=== PATIENT | male | born 1995 | race Caucasian/White ===

== ENCOUNTER 2018-08-02 23:40 | Emergency (ER) | payer MEDICAID, SELFPAY ==
[2018-08-02 23:41] VITALS: BP 141/84; PULSE 122; RESP 18; TEMP 36.4; O2SAT 95; BMI 30.4
--- NOTE | 2018-08-03 00:18 | ED.VISSUMM ---
- ER Visit Summary Date of Service: 08/03/18 Chief Complaint: Toothache History of Present Illness: The patient is a 23 M who presents with dental pain for a month. He states that a filling fell out today and he has had some increased pain since that time. No fever jaw or facial swelling hot or cold sensitivity. He has not tried anything for pain at home. Physical Examination: Afebrile heart rate 122 vitals otherwise normal No distress resting comfortably Oropharynx clear no trismus clear speech he does have dental decay and dental tenderness of the right maxillary second molar no obvious abscess amenable to incision and drainage Test Results: Not indicated Emergency Department Course and Treatment: Patient given clindamycin and ibuprofen here for pain. He was given a prescription for clindamycin and advised to use anti-inflammatories for pain and to follow-up with his dentist. He understands return for new or worsening symptoms. He was discharged. Treatment Plan: [] Disposition: Discharge Impression: Odontalgia This note was generated with [employer] dictation software. It may contain incorrect words, spelling, and punctuation that were not noted in review of the chart prior to signing ED Disposition - Plan for ED Patient: Chief Complaint: Dental Referrals: Jose Francisco Domingo DO [Primary Care Provider] -
--- NOTE | 2018-08-03 00:19 | ED.DEP ---
ED Disposition - Plan for ED Patient: Chief Complaint: Dental Instructions: ED Tooth Pain Prescriptions: Clindamycin HCl [Cleocin] 300 mg PO Q8H #30 cap Referrals: Jose Francisco Domingo DO [Primary Care Provider] -
[2018-08-03] MEDS: Ibuprofen 200 MG Tablet 400 MG PO (00:28)
[2018-08-03] MEDS: Clindamycin HCl 150 MG Capsule 300 MG PO (00:28)
--- OUTSIDE RECORDS SUMMARY | 2018-09-14 17:49 | XMS RPT_ITS ---
:1995 Author Organization OHIP Care Team Providers Name Role Phone JOSE FRANCISCO CMKAY Attending Unavailable YONATAN CRONIN Referring Unavailable YONATAN CRONIN Attending Unavailable JOSE FRANCISCO MCKAY Referring Unavailable YONATAN CRONIN Referring Unavailable PHAM OHARA (PT) Attending Unavailable JOLANTA, YONATAN Referring Unavailable PHAM OHARA (PT) Attending Unavailable YONATAN CRONIN Referring Unavailable PHAM OHARA (PT) Attending Unavailable JOLANTA, YONATAN Referring Unavailable PHAM OHARA (PT) Attending Unavailable JOLANTA, YONATAN Referring Unavailable JOSE FRANCISCO MCKAY Attending Unavailable JOSE FRANCISCO MCKAY Referring Unavailable FIORELLA CHINCHILLA (DEDICATED DRIVER) Attending Unavailable JOSE FRANCISCO MCKAY Referring Unavailable LUCRETIA PERES (PA-C) Referring Unavailable Jose Francisco Mckay Primary Care Unavailable Tony Mitchell Attending Unavailable PROBLEMS PROBLEMS DATE TYPE CONDITION / CODE ATTENDING STATUS SOURCE 02/22/2018 Active Shortness of NA Active [facility] breath / Main [place] R06.02(ICD-10) Repository 02/22/2018 Active Cough / NA Active [facility] R05(ICD-10) Main [place] Repository 12/16/2017 Active Epigastric pain / NA Active [facility] R10.13(ICD-10) Main [place] Repository 12/16/2017 Active Nausea / NA Active [facility] R11.0(ICD-10) Main [place] Repository 12/16/2017 Active Impaired fasting NA Active [facility] glucose / [place] R73.01(ICD-10) Repository 10/28/2017 Active Strain of NA Active [facility] unspecified Main [place] muscle, fascia and Repository tendon at shoulder and upper arm level, left arm, subsequent encounter / S46.912D(ICD-10) 10/14/2017 Active Pain in left NA Active [facility] shoulder / [facility] [place] M25.512(ICD-10) Repository 10/14/2017 Active Pain in left knee NA Active [facility] / M25.562(ICD-10) Main [place] Repository 10/14/2017 Active Unspecified injury NA Active [facility] of left lower leg, Main [place] initial encounter Repository / S89.92XA(ICD-10) PROCEDURES PROCEDURES No Procedure Records FoundRESULTS RESULTS DISCHARGE INSTRUCTION Observed: 08/03/2018 Status: F Source: [place] 12:20 AM [facility] REPOSITORY [facility] Medical Records Department [address] [place] [address] Discharge Instruction 08/03/18 0019 MR#: [id number] Acct: [id number] Name: LINDA DE OLIVEIRA Rep #: [id number] : 1995 23 From: Tony Mitchell MD PCP: Jose Francisco Hilario DO Status: REG ER ED Disposition - Plan for ED Patient: Chief Complaint: Dental Instructions: ED Tooth Pain Prescriptions: Clindamycin HCl [Cleocin] 300 mg PO Q8H #30 cap Referrals: Jose Francisco Mckay DO [Primary Care Provider] - What to do if you have Problems For any increased pain, shortness of breath, bleeding, nausea or vomiting, chest pain, or any unexpected problems, contact your Primary Care Provider. Call [facility] ([phone]) or report to the closest Emergency Room. Call 911 if necessary. 08/03/18 0020 <Electronically signed by Tony Mitchell MD> Date Tony Mitchell MD Cosigner Signature (If Indicated): Date CC: Jose Francisco Hilario DO EMERGENCY DEPARTMENT Observed: 08/03/2018 Status: F Source: [place] SUMMARY 12:19 AM [facility] REPOSITORY [facility] Medical Records Department [address] [place] [place] [address] Emergency Department Summary 08/03/18 0018 MR#: [id number] Acct: [id number] Name: LINDA DE OLIVEIRA Rep #: [id number] : 1995 23 From: Tony Mitchell MD PCP: Jose Francisco Hilario DO Status: REG ER - ER Visit Summary Date of Service: 08/03/18 Chief Complaint: Toothache History of Present Illness: The patient is a 23 M who presents with dental pain for a month. He states that a filling fell out today and he has had some increased pain since that time. No fever jaw or facial swelling hot or cold sensitivity. He has not tried anything for pain at home. Physical Examination: Afebrile heart rate 122 vitals otherwise normal No distress resting comfortably Oropharynx clear no trismus clear speech he does have dental decay and dental tenderness of the right maxillary second molar no obvious abscess amenable to incision and drainage Test Results: Not indicated Emergency Department Course and Treatment: Patient given clindamycin and ibuprofen here for pain. He was given a prescription for clindamycin and advised to use anti-inflammatories for pain and to follow-up with his dentist. He understands return for new or worsening symptoms. He was discharged. Treatment Plan: [] Disposition: Discharge Impression: Odontalgia This note was generated with [employer] dictation software. It may contain incorrect words, spelling, and punctuation that were not noted in review of the chart prior to signing ED Disposition - Plan for ED Patient: Chief Complaint: Dental Referrals: Jose Francisco Mckay DO [Primary Care Provider] - What to do if you have Problems For any increased pain, shortness of breath, bleeding, nausea or vomiting, chest pain, or any unexpected problems, contact your Primary Care Provider. Call [facility] ([phone]) or report to the closest Emergency Room. Call 911 if necessary. 08/03/18 0019 <Electronically signed by Tony Mitchell MD> Date Tony Mitchell MD Cosigner Signature (If Indicated): Date CC: Jose Francisco Hilario DO PROGRESS Observed: 03/01/2018 Status: COMPLETED Source: [place] 6:40 PM [facility] REPOSITORY [facility] ID: [id number] Author: Stoney Cole) Nadine Service: (none) Author Type: Physician Accounts Collector Type: Progress Notes Filed: 03/01/2018 6:46 PM Note Text: Subjective HPI Pt presents with vomiting and diarrhea for 3 days. He started a zpak for a respiratory infection on 02/22 and finished it. He denies hx of cdiff. No recent travel. No blood in the stool. Lower abdominal cramping. No fever. He did vomit twice today. Review of Systems Constitutional: Negative for chills and fever. Gastrointestinal: Positive for abdominal pain, diarrhea, nausea and vomiting. Negative for blood in stool, constipation and melena. All other systems reviewed and are negative. 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 Disp: 1 Inhaler Rfl: 0 lansoprazole (PREVACID) 30 mg capsule Take 1 capsule by mouth daily before breakfast. 1/2 hr before meal. Disp: 30 capsule Rfl: 3 buPROPion XL (WELLBUTRIN XL) 150 mg 24 hr tablet Take 150 mg by mouth once daily. Disp: Rfl: 4 ondansetron orally disintegrating (ZOFRAN ODT) 4 mg disintegrating tablet Take 1 tablet by mouth every 8 hours as needed. Disp: 12 tablet Rfl: 0 QUEtiapine (SEROQUEL) 25 mg tablet Take 1 tablet by mouth daily at bedtime. (Patient not taking: Reported on 03/01/2018 ) Disp: 30 tablet Rfl: 3 QUEtiapine (SEROQUEL) 200 mg tablet Take 200 mg by mouth. Takes 1/2 tab daily Disp: Rfl: atomoxetine (STRATTERA) 60 mg capsule Take 60 mg by mouth once daily. Disp: Rfl: [place] Aspartate 20 mg cap Take by mouth twice daily. Disp: Rfl: No current facility-administered medications for this visit. PAST SURGICAL HISTORY Procedure Laterality Date - NONE - VASECTOMY Bilateral 01/30/2017 FAMILY HISTORY Problem Relation Age of Onset - Diabetes Mother Social History Substance Use Topics - Smoking status: Current Every Day Smoker Packs/day: 3.00 Years: 5.00 Types: Cigarettes Start date: 2011 - Smokeless tobacco: Former User Types: Snuff - Alcohol use Yes Comment: rarely BP 118/66 Pulse 76 Temp 36.1 ?C (96.9 ?F) (Tympanic) Resp 16 Wt 102.5 kg (226 lb) BMI 30.95 kg/m? Objective Physical Exam Constitutional: He is oriented to person, place, and time and well-developed, well-nourished, and in no distress. HENT: Head: Normocephalic and atraumatic. Mouth/Throat: Oropharynx is clear and moist. Neck: Normal range of motion. Cardiovascular: Normal rate, regular rhythm and normal heart sounds. Pulmonary/Chest: Effort normal and breath sounds normal. Abdominal: Soft. Bowel sounds are normal. He exhibits no distension. There is no tenderness. There is no rebound. Neurological: He is alert and oriented to person, place, and time. Skin: Skin is warm and dry. Psychiatric: Affect and judgment normal. Nursing note and vitals reviewed. ASSESSMENT/PLAN: 1. Diarrhea, unspecified type - ICD9: 787.91, ICD10: R19.7 Stool studies ordered due to recent antibiotics. Discussed BRATTY diet. Clear liquids and gatorade. If develop fever or worsening abdominal pain go to the ED. Pt understood this plan. He appears well hydrated here and abdomen is benign on palpation. - C. DIFFICILE PCR - ENTERIC BACTERIAL PANEL BY PCR - OVA + PARA MICROSCOPIC Stoney Joel PA-C CNOV Observed: 03/01/2018 Status: COMPLETED Source: [place] 6:15 PM [facility] REPOSITORY Office Visit (UCWSTR) LINDA DE OLIVEIRA ([id number]) 1995 M Date Time Provider Department 03/01/18 6:15 PM STONEY JOEL (MAURICE) [facility] During your visit today, we recorded the following information about you: Temperature Pulse Respiration Blood pressure 96.9 degrees 76/minute 16/minute 118/66 Weight 102.5 kg Stoney Joel PA-C 03/01/2018 6:46 PM Signed Subjective HPI Pt presents with vomiting and diarrhea for 3 days. He started a zpak for a respiratory infection on 02/22 and finished it. He denies hx of cdiff. No recent travel. No blood in the stool. Lower abdominal cramping. No fever. He did vomit twice today. Review of Systems Constitutional: Negative for chills and fever. Gastrointestinal: Positive for abdominal pain, diarrhea, nausea and vomiting. Negative for blood in stool, constipation and melena. All other systems reviewed and are negative. 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 Disp: 1 Inhaler Rfl: 0 lansoprazole (PREVACID) 30 mg capsule Take 1 capsule by mouth daily before breakfast. 1/2 hr before meal. Disp: 30 capsule Rfl: 3 buPROPion XL (WELLBUTRIN XL) 150 mg 24 hr tablet Take 150 mg by mouth once daily. Disp: Rfl: 4 ondansetron orally disintegrating (ZOFRAN ODT) 4 mg disintegrating tablet Take 1 tablet by mouth every 8 hours as needed. Disp: 12 tablet Rfl: 0 QUEtiapine (SEROQUEL) 25 mg tablet Take 1 tablet by mouth daily at bedtime. (Patient not taking: Reported on 03/01/2018 ) Disp: 30 tablet Rfl: 3 QUEtiapine (SEROQUEL) 200 mg tablet Take 200 mg by mouth. Takes 1/2 tab daily Disp: Rfl: atomoxetine (STRATTERA) 60 mg capsule Take 60 mg by mouth once daily. Disp: Rfl: [place] Aspartate 20 mg cap Take by mouth twice daily. Disp: Rfl: No current facility-administered medications for this visit. PAST SURGICAL HISTORY Procedure Laterality Date - NONE - VASECTOMY Bilateral 01/30/2017 FAMILY HISTORY Problem Relation Age of Onset - Diabetes Mother Social History Substance Use Topics - Smoking status: Current Every Day Smoker Packs/day: 3.00 Years: 5.00 Types: Cigarettes Start date: 2011 - Smokeless tobacco: Former User Types: Snuff - Alcohol use Yes Comment: rarely BP 118/66 Pulse 76 Temp 36.1 ?C (96.9 ?F) (Tympanic) Resp 16 Wt 102.5 kg (226 lb) BMI 30.95 kg/m? Objective Physical Exam Constitutional: He is oriented to person, place, and time and well-developed, well-nourished, and in no distress. HENT: Head: Normocephalic and atraumatic. Mouth/Throat: Oropharynx is clear and moist. Neck: Normal range of motion. Cardiovascular: Normal rate, regular rhythm and normal heart sounds. Pulmonary/Chest: Effort normal and breath sounds normal. Abdominal: Soft. Bowel sounds are normal. He exhibits no distension. There is no tenderness. There is no rebound. Neurological: He is alert and oriented to person, place, and time. Skin: Skin is warm and dry. Psychiatric: Affect and judgment normal. Nursing note and vitals reviewed. ASSESSMENT/PLAN: 1. Diarrhea, unspecified type - ICD9: 787.91, ICD10: R19.7 Stool studies ordered due to recent antibiotics. Discussed BRATTY diet. Clear liquids and gatorade. If develop fever or worsening abdominal pain go to the ED. Pt understood this plan. He appears well hydrated here and abdomen is benign on palpation. - C. DIFFICILE PCR - ENTERIC BACTERIAL PANEL BY PCR - OVA + PARA MICROSCOPIC Stoney Joel PA-C Referring Provider: SELF [200] Allergies As of Date: 03/01/2018 Noted Allergy Reaction AUGMENTIN (AMOXICILLIN-POT CLAVUL*11/05/2005 2 - Rash Date Reviewed: 03/01/2018 Reviewed by: Dorita Michael Ma - Fully Assessed Reason for Visit: Vomiting [120] Cmt: diarrhea x 3 days Primary Visit Diagnosis:Diarrhea, unspecified type [R19.7] Order(s):C. DIFFICILE PCR [SQCDPCR] Order #: [id number] ENTERIC BACTERIAL PANEL BY PCR [SQSTLPCR] Order #: [id number] FUTURE OVA + PARA MICROSCOPIC [SQOVAP] Order #: [id number] ondansetron orally disintegrating (ZOFRAN ODT) 4 mg disintegrating tabletTake 1 tablet by mouth every 8 hours as needed.Disp: 12 tabletRfl: 0 Prescriptions as of 03/01/2018 Sig: ARIPIPRAZOLE 10 MG TABLET DAILY DOXYCYCLINE HYCLATE 100 MG CA* TWICE A DAY OLANZAPINE 5 MG TABLET TWICE A DAY ALBUTEROL SULFATE HFA 90 MCG/* Inhale 2 Puffs as instructed * LANSOPRAZOLE 30 MG CAPSULE,DE* Take 1 capsule by mouth daily* BUPROPION XL 150 MG TAB Take 150 mg by mouth once janee* ONDANSETRON 4 MG DISINTEGRATI* Take 1 tablet by mouth every * QUETIAPINE 25 MG TABLET Take 1 tablet by mouth daily * Patient not taking: Reported on 03/01/2018 QUETIAPINE 200 MG TABLET Take 200 mg by mouth. Takes 1* ATOMOXETINE 60 MG CAPSULE Take 60 mg by mouth once geetha* LITHIUM ASPARTATE 20 MG CAPSU* Take by mouth twice daily. Problem List As Of Date 03/01/2018 Noted Resolved ATTN DEFICIT W HYPERACT [F90.9] Scoliosis [M41.9] INVALID FOR* Flat feet [M21.41, M21.42] INVALID FOR* Mood disorder (HCC) [F39] INVALID FOR* Tobacco abuse disorder [Z72.0] INVALID FOR* Elevated random blood glucose level [R73.09] INVALID FOR* Overweight (BMI 25.0-29.9) [E66.3] INVALID FOR* Chronic left shoulder pain [M25.512, G89.29] INVALID FOR* Prescriptions ordered this encounter Disp Refills Start End ONDANSETRON 4 MG DISINTEGRATING TABL* 12 t* 0 03/01/2018 Route: ORAL Sig: Take 1 tablet by mouth every 8 hours as needed. Letter Text [facility] MAURICE Mcgraw [address], [place] [address] 03/01/2018 TO WHOM IT MAY CONCERN: This is to confirm that Linda De Oliveira had an appointment and was seen at the [facility] in the Department of Urgent Care by MAURICE Mcgraw on 03/01/2018 and may return to work on 03/03/2018. Sincerely yours, MAURICE Mcgraw Encounter Status:Closed by STONEY JOEL PA-C on 03/01/18 XR CHEST 2V FRONTAL/LAT Observed: 02/22/2018 Status: F Source: [place] 5:10 PM [facility] REPOSITORY * * *Final Report* * * DATE OF EXAM: Feb 22 2018 5:10PM [id number] [id number] - XR CHEST 2V FRONTAL/LAT / PROCEDURE REASON: multiple diagnoses * * * * Physician Interpretation * * * * EXAMINATION: CHEST RADIOGRAPH (2 VIEW FRONTAL and LATERAL) Clinical History: Shortness of breath Cough MQ: XC2_5 Comparison: 10/09/2015 RESULT: Lines, tubes, and devices: None. Lungs and pleura: No consolidation. No lung mass. No pleural effusion. Cardiomediastinal silhouette: Normal cardiomediastinal silhouette. IMPRESSION: No acute radiographic abnormality. Metal Expediter: ALEX Transcribe Date/Time: Feb 22 2018 5:16P Dictated by : EASTON JAMES MD This examination was interpreted and the report reviewed and electronically signed by: EASTON JAMES MD on Feb 22 2018 5:17PM EST [id number] Observed: 02/22/2018 Status: COMPLETED Source: [place] 5:08 PM [facility] REPOSITORY [facility] ID: [id number] Author: LARISSA Ahn (Ct) Service: (none) Author Type: Clinical Beam Warper Type: Progress Notes Filed: 02/22/2018 5:08 PM Note Text: Radiology Service Progress Note PATIENT NAME: Linda De Oliveira DATE OF SERVICE: February 22, 2018 TIME: 5:08 PM PATIENT IDENTITY VERIFICATION COMPLETED USING TWO (2) METHODS: Patient confirmed name verbally and Date of . PATIENT GENDER DATA: Male PATIENT RELEVANT IMPLANT DATA REVIEWED: Not Applicable RADIOLOGY DEPARTMENT: General X-ray: Exam(s) Completed: Chest X-Ray PERIPHERAL IV DATA: Not applicable SIGNED BY: LARISSA Ahn February 22, 2018 5:08 PM PROGRESS Observed: 02/22/2018 Status: COMPLETED Source: [place] 4:16 PM [facility] REPOSITORY [facility] ID: [id number] Author: Lucretia Peres Service: (none) Author Type: Physician Accounts Collector Type: Progress Notes Filed: 02/22/2018 5:20 PM Note Text: 02/22/2018 Patient presents with: Cough Shortness of Breath SUBJECTIVE: This is a 23 year old that is here today for Complaint(s) of cough and SOB x 2 days. + nasal congestion and rhinorrhea. PMH of pneumonia and asthma. Not on any mainteance meds. Does not have albuterol at this time. 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 1/2 hr before meal. QUEtiapine (SEROQUEL) 25 mg tablet Take 1 tablet by mouth daily at bedtime. QUEtiapine (SEROQUEL) 200 mg tablet Take 200 mg by mouth. Takes 1/2 tab daily atomoxetine (STRATTERA) 60 mg capsule Take 60 mg by mouth once daily. [place] Aspartate 20 mg cap Take by mouth twice daily. No current facility-administered medications for this visit. SOCIAL HISTORY Social History Marital status: Single Spouse name: Years of education: Number of children: Social History Main Topics Smoking status: Current Every Day Smoker Packs/day: 3.00 Years: 5.00 Types: Cigarettes Start date: 2011 Smokeless tobacco: Former User Types: Snuff Alcohol use: Yes Comment: rarely Drug use: No Social History Narrative Mother Brant Pinzon REVIEW OF SYSTEMS All other reviewed and negative other than HPI. OBJECTIVE: BP 120/90 Pulse 89 Temp 36.9 ?C (98.5 ?F) (Left Tympanic) Resp 18 Wt 104.3 kg (230 lb) SpO2 93% BMI 31.50 kg/m? APPEARANCE alert, in no acute distress, well-hydrated, well nourished. EYES PERRLA, conjunctiva and sclera normal. EARS External ears normal, canals clear. TMs normal ANMOL NOSE/SINUS Nares normal. Septum midline. Mucosa normal. No drainage or sinus tenderness. THROAT normal, no erythema NECK Supple, no adenopathy; HEART RRR with normal S1 and S2, LUNG slightly diminished BS bases ANMOL, + coarse breath sounds RLL. ASSESSMENT/PLAN: 1. SOB (shortness of breath) - ICD9: 786.05, ICD10: R06.02 (primary diagnosis) - XR CHEST 2V FRONTAL/LAT - PREDNISONE 20 MG TABLET - ALBUTEROL SULFATE HFA 90 MCG/ACTUATION AEROSOL INHALER - INHALATIONAL SPACING DEVICE abx tx pending CXR Reviewed red flags and when to seek care sooner. f/u with PCP in 7-10 days, sooner if worsening. 2. Cough - ICD9: 786.2, ICD10: R05 - XR CHEST 2V FRONTAL/LAT - PREDNISONE 20 MG TABLET The patient indicates understanding of these issues and agrees with the plan. Reviewed red flags and when to seek care sooner. Lucretia Peres PA-C CNOV Observed: 02/22/2018 Status: COMPLETED Source: [place] 4:15 PM [facility] REPOSITORY Office Visit (WSTR) LINDA DE OLIVEIRA ([id number]) 1995 M Date Time Provider Department 02/22/18 4:15 PM LUCRETIA PERES) [facility] During your visit today, we recorded the following information about you: Temperature Pulse Respiration Blood pressure 98.5 degrees 89/minute 18/minute 120/90 Weight 104.3 kg Lucretia Peres PA-C 02/22/2018 5:20 PM Signed 02/22/2018 Patient presents with: Cough Shortness of Breath SUBJECTIVE: This is a 23 year old that is here today for Complaint(s) of cough and SOB x 2 days. + nasal congestion and rhinorrhea. PMH of pneumonia and asthma. Not on any mainteance meds. Does not have albuterol at this time. 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 1/2 hr before meal. QUEtiapine (SEROQUEL) 25 mg tablet Take 1 tablet by mouth daily at bedtime. QUEtiapine (SEROQUEL) 200 mg tablet Take 200 mg by mouth. Takes 1/2 tab daily atomoxetine (STRATTERA) 60 mg capsule Take 60 mg by mouth once daily. [place] Aspartate 20 mg cap Take by mouth twice daily. No current facility-administered medications for this visit. SOCIAL HISTORY Social History Marital status: Single Spouse name: Years of education: Number of children: Social History Main Topics Smoking status: Current Every Day Smoker Packs/day: 3.00 Years: 5.00 Types: Cigarettes Start date: 2011 Smokeless tobacco: Former User Types: Snuff Alcohol use: Yes Comment: rarely Drug use: No Social History Narrative Mother Brant Pinzon REVIEW OF SYSTEMS All other reviewed and negative other than HPI. OBJECTIVE: BP 120/90 Pulse 89 Temp 36.9 ?C (98.5 ?F) (Left Tympanic) Resp 18 Wt 104.3 kg (230 lb) SpO2 93% BMI 31.50 kg/m? APPEARANCE alert, in no acute distress, well-hydrated, well nourished. EYES PERRLA, conjunctiva and sclera normal. EARS External ears normal, canals clear. TMs normal ANMOL NOSE/SINUS Nares normal. Septum midline. Mucosa normal. No drainage or sinus tenderness. THROAT normal, no erythema NECK Supple, no adenopathy; HEART RRR with normal S1 and S2, LUNG slightly diminished BS bases ANMOL, + coarse breath sounds RLL. ASSESSMENT/PLAN: 1. SOB (shortness of breath) - ICD9: 786.05, ICD10: R06.02 (primary diagnosis) - XR CHEST 2V FRONTAL/LAT - PREDNISONE 20 MG TABLET - ALBUTEROL SULFATE HFA 90 MCG/ACTUATION AEROSOL INHALER - INHALATIONAL SPACING DEVICE abx tx pending CXR Reviewed red flags and when to seek care sooner. f/u with PCP in 7-10 days, sooner if worsening. 2. Cough - ICD9: 786.2, ICD10: R05 - XR CHEST 2V FRONTAL/LAT - PREDNISONE 20 MG TABLET The patient indicates understanding of these issues and agrees with the plan. Reviewed red flags and when to seek care sooner. Lucretia Peres PA-C Referring Provider: SELF [[id number]] Allergies As of Date: 02/22/2018 Noted Allergy Reaction AUGMENTIN (AMOXICILLIN-POT CLAVUL*11/05/2005 2 - Rash Date Reviewed: 02/22/2018 Reviewed by: Lucretia Lal) Kole - Fully Assessed Reason for Visit: Cough [28] Shortness of Breath [227] Primary Visit Diagnosis:SOB (shortness of breath) [R06.02] Other Visit Diagnosis:Cough [R05] Order(s):XR CHEST 2V FRONTAL/LAT [[id number]] Order #: [id number] FUTURE predniSONE (DELTASONE) 20 mg tabletTake 2 tablets by mouth once daily for 5 days.Disp: 10 tabletRfl: 0 albuterol HFA (PROVENTIL HFA, VENTOLIN HFA) 90 mcg/actuation inhalerInhale 2 Puffs as instructed every 4 hours as needed.Disp: 1 InhalerRfl: 0 Inhalational Spacing Device spcr1 Device one time only for 1 dose.Disp: 1 EachRfl: 0 Prescriptions as of 02/22/2018 Sig: PREDNISONE 20 MG TABLET Take 2 tablets by mouth once * ALBUTEROL SULFATE HFA 90 MCG/* Inhale 2 Puffs as instructed * INHALATIONAL SPACING DEVICE 1 Device one time only for 1 * LANSOPRAZOLE 30 MG CAPSULE,DE* Take 1 capsule by mouth daily* QUETIAPINE 25 MG TABLET Take 1 tablet by mouth daily * QUETIAPINE 200 MG TABLET Take 200 mg by mouth. Takes 1* ATOMOXETINE 60 MG CAPSULE Take 60 mg by mouth once geetha* LITHIUM ASPARTATE 20 MG CAPSU* Take by mouth twice daily. Problem List As Of Date 02/22/2018 Noted Resolved ATTN DEFICIT W HYPERACT [F90.9] Scoliosis [M41.9] INVALID FOR* Flat feet [M21.41, M21.42] INVALID FOR* Mood disorder (HCC) [F39] INVALID FOR* Tobacco abuse disorder [Z72.0] INVALID FOR* Elevated random blood glucose level [R73.09] INVALID FOR* Overweight (BMI 25.0-29.9) [E66.3] INVALID FOR* Chronic left shoulder pain [M25.512, G89.29] INVALID FOR* Prescriptions ordered this encounter Disp Refills Start End PREDNISONE 20 MG TABLET 10 t* 0 02/22/2018 02/27/2018 Route: ORAL Sig: Take 2 tablets by mouth once daily for 5 days. ALBUTEROL SULFATE HFA 90 MCG/ACTUATI* 1 In* 0 02/22/2018 Route: INHALATION Sig: Inhale 2 Puffs as instructed every 4 hours as needed. INHALATIONAL SPACING DEVICE 1 Ea* 0 02/22/2018 02/22/2018 Route: Misc Si Device one time only for 1 dose. Encounter Status:Closed by LUCRETIA PERES PA-C on 02/22/18 PROGRESS Observed: 01/05/2018 Status: COMPLETED Source: [place] 2:40 PM [facility] REPOSITORY HNO ID: [id number] Author: Fiorella Willis) Renée Service: (none) Author Type: Nurse Practitioner Type: Progress Notes Filed: 01/05/2018 2:49 PM Note Text: HPI/CC: Linda De Oliveira is a 22 year old male who presents for 3 week follow up. Not currently taking medication. Has decreased spicy foods which has helped his symptoms. Continues to have GERD symptoms at least once a day. Denies Nausea, changes in BM, UTI symptoms, blood in stools. Eating well drinking well ROS as above, otherwise non-contributory. Reviewed PMHx, PSHx, social Hx, medications and allergies. PHYSICAL EXAMINATION: BP 120/80 Pulse 92 Resp 16 Wt 102.1 kg (225 lb) BMI 30.81 kg/m? General appearance: Well appearing, alert, in no acute distress, well-hydrated, well nourished. Lungs: Lungs clear to auscultation. No wheezing, rhonchi, rales Heart: RRR without murmur, gallop, or rubs. No ectopy Abdomen: Normal abdominal exam, Abdomen soft, non-tender. Bowel sounds normal. No masses, organomegaly ASSESSMENT/PLAN: 1. GERD without esophagitis - ICD9: 530.81, ICD10: K21.9 - Discussed lifestyle modifications including diet changes - Continue treatment with LANSOPRAZOLE 30 MG CAPSULE,DELAYED RELEASE Fiorella Chinchilla, LOVE.KRYSTINA RAMSEY Observed: 01/05/2018 Status: COMPLETED Source: [place] 2:20 PM [facility] REPOSITORY Office Visit (FAMPWS) LINDA DE OLIVEIRA ([id number]) 1995 M Date Time Provider Department 01/05/18 2:20 PM FIORELLA CHINCHILLA (KRYSTINA) FAMPWS During your visit today, we recorded the following information about you: Pulse Respiration Blood pressure Weight 92/minute 16/minute 120/80 102.1 kg Fiorella Chinchilla APRN.CNP 01/05/2018 2:49 PM Signed HPI/CC: Linda De Oliveira is a 22 year old male who presents for 3 week follow up. Not currently taking medication. Has decreased spicy foods which has helped his symptoms. Continues to have GERD symptoms at least once a day. Denies Nausea, changes in BM, UTI symptoms, blood in stools. Eating well drinking well ROS as above, otherwise non-contributory. Reviewed PMHx, PSHx, social Hx, medications and allergies. PHYSICAL EXAMINATION: BP 120/80 Pulse 92 Resp 16 Wt 102.1 kg (225 lb) BMI 30.81 kg/m? General appearance: Well appearing, alert, in no acute distress, well-hydrated, well nourished. Lungs: Lungs clear to auscultation. No wheezing, rhonchi, rales Heart: RRR without murmur, gallop, or rubs. No ectopy Abdomen: Normal abdominal exam, Abdomen soft, non-tender. Bowel sounds normal. No masses, organomegaly ASSESSMENT/PLAN: 1. GERD without esophagitis - ICD9: 530.81, ICD10: K21.9 - Discussed lifestyle modifications including diet changes - Continue treatment with LANSOPRAZOLE 30 MG CAPSULE,DELAYED RELEASE Fiorella Chinchilla APRN.CNP Referring Provider: JOSE FRANCISCO MCKAY [[id number]] Allergies As of Date: 01/05/2018 Noted Allergy Reaction AUGMENTIN (AMOXICILLIN-POT CLAVUL*11/05/2005 2 - Rash Date Reviewed: 01/05/2018 Reviewed by: Mk Zamora LPN - Fully Assessed Reason for Visit: Recheck [92] Cmt: 3 week follow up Primary Visit Diagnosis:GERD without esophagitis [K21.9] Order(s):lansoprazole (PREVACID) 30 mg capsuleTake 1 capsule by mouth daily before breakfast. 1/2 hr before meal.Disp: 30 capsuleRfl: 3 Prescriptions as of 01/05/2018 Sig: QUETIAPINE 25 MG TABLET Take 1 tablet by mouth daily * QUETIAPINE 200 MG TABLET Take 200 mg by mouth. Takes 1* ATOMOXETINE 60 MG CAPSULE Take 60 mg by mouth once geetha* LITHIUM ASPARTATE 20 MG CAPSU* Take by mouth twice daily. LANSOPRAZOLE 30 MG CAPSULE,DE* Take 1 capsule by mouth daily* Problem List As Of Date 01/05/2018 Noted Resolved ATTN DEFICIT W HYPERACT [F90.9] Scoliosis [M41.9] INVALID FOR* Flat feet [M21.41, M21.42] INVALID FOR* Mood disorder (HCC) [F39] INVALID FOR* Tobacco abuse disorder [Z72.0] INVALID FOR* Elevated random blood glucose level [R73.09] INVALID FOR* Overweight (BMI 25.0-29.9) [E66.3] INVALID FOR* Chronic left shoulder pain [M25.512, G89.29] INVALID FOR* Prescriptions ordered this encounter Disp Refills Start End LANSOPRAZOLE 30 MG CAPSULE,DELAYED R* 30 c* 3 01/05/2018 Route: ORAL Sig: Take 1 capsule by mouth daily before breakfast. 1/2 hr before meal. Medications Discontinued During This Encounter cyclobenzaprine (FLEXERIL) 5 mg tabl* 30 t* 0 02/20/2015 01/05/2018 Route: ORAL Sig: Take 1 tablet by mouth every 8 hours as needed for Muscle Spasm. Disc: Reason for discontinue is not on file. naproxen (NAPROSYN) 500 mg tablet 30 t* 0 10/17/2015 01/05/2018 Route: ORAL Sig: Take 1 tablet by mouth twice daily as needed (for pain/inflammation). Take with food. Disc: Reason for discontinue is not on file. albuterol sulfate 90 mcg/actuation a* 1 In* 0 08/13/2016 01/05/2018 Si puffs every 4-6 hours as needed for cough and wheeze Disc: Reason for discontinue is not on file. guaiFENesin (MUCINEX) 600 mg 12 hr t* 30 t* 0 08/13/2016 01/05/2018 Route: ORAL Sig: Take 2 tablets by mouth twice daily. Disc: Reason for discontinue is not on file. Mbepfvixnrlohnm-Dynoaqjuh-EB (BROMFE* 120 * 0 08/12/2017 01/05/2018 Route: ORAL Sig: Take 5-10 mL by mouth four times daily as needed. Disc: Reason for discontinue is not on file. buPROPion XL (WELLBUTRIN XL) 300 mg * 30 t* 3 10/14/2017 01/05/2018 Route: ORAL Sig: Take 1 tablet by mouth once daily. Disc: Reason for discontinue is not on file. lansoprazole (PREVACID) 30 mg capsule 30 c* 3 12/16/2017 01/05/2018 Route: ORAL Sig: Take 1 capsule by mouth daily before breakfast. 1/2 hr before meal. Disc: Reason for discontinue is not on file. Encounter Status:Closed by FIORELLA CIHNCHILLA CNP on 01/05/18 CBC Collected: 12/16/2017 Status: F Source: [place] 12:58 PM [facility] REPOSITORY TYPE CODE TESTS RESULT OUT OF REFERENCE UNITS RANGE LAB WBC 3.70-11.00 k/uL WBC 5.85 LAB RBC 4.20-6.00 m/uL RBC 5.32 LAB HGB 13.0-17.0 g/dL Hemoglobin 16.1 LAB HCT 39.0-51.0 % Hematocrit 47.8 LAB MCV 80.0-100.0 fL MCV 89.8 LAB MCH 26.0-34.0 pG MCH 30.3 LAB MCHC 30.5-36.0 g/dL MCHC 33.7 LAB RDWCV 11.5-15.0 % RDW-CV 13.1 LAB PLTCT 150-400 k/uL Platelet Count 212 LAB MPV 9.0-12.7 fL MPV 10.5 LAB ABSNUC <0.01 k/uL Absolute nRBC <0.01 Performed By: #### CBC, CMP, LIPA, HBA1C, HPYLRI #### [facility] [address] [place], [place] [address] COMP METABOLIC PANEL Collected: 12/16/2017 Status: F Source: [place] 12:58 PM [facility] REPOSITORY TYPE CODE TESTS RESULT OUT OF REFERENCE UNITS RANGE LAB TP 6.3-8.0 g/dL Protein, Total 7.4 LAB ALB 3.9-4.9 g/dL Albumin 4.4 LAB CA 8.5-10.2 mg/dL Calcium, Total 9.3 LAB TBIL 0.2-1.3 mg/dL Bilirubin, Total 0.2 LAB ALKP 36-108 U/L Alkaline Phosphatase 56 LAB AST 14-40 U/L AST 32 LAB GLU 74-99 mg/dL Glucose High 101 Result Comment: The [place] [employer] (ADA) provides guidance for cutoff values for fasting glucose and random glucose. The ADA defines fasting as no caloric intake for at least 8 hours. Fas ting plasma glucose results between 100 to 125 mg/dL indicate increased risk for diabetes (prediabetes). Fasting plasma glucose results greater than or equal to 126 mg/dL meet the criteria for diagnosis of diabetes. In the absence of unequivocal hyperglycemia, results should be confirmed by repeat testing. In a patient with classic symptoms of hyperglycemia or hyperglycemic crisis, random plasma glucose results greater than or equal to 200 mg/dL meet the criteria for diagnosis of diabetes. Reference: Standards of Medical Care in Diabetes 2016, [place] [employer]. Diabetes Care. 2016.39(Suppl 1). LAB BUN 9-24 mg/dL BUN 18 LAB CRET 0.73-1.22 mg/dL Creatinine 0.94 LAB NA 136-144 mmol/L Sodium 142 LAB K 3.7-5.1 mmol/L Potassium 4.2 LAB CL 97-105 mmol/L Chloride 104 LAB CO2 22-30 mmol/L CO2 24 LAB AGAP 9-18 mmol/L Anion Gap 14 LAB ALT 10-54 U/L ALT 50 LAB GFRAA eGFR- Amer. >60 LAB GFRNAA . eGFR-All Other Races >60 Result Comment: eGFR (Estimated GFR) Units of measure: mL/min/1.73 meters squared eGFR is derived from the reexpressed MDRD Study equation using the following parameters: serum creatinine, age, gender and race. The creatinine assay has been calibrated to be traceable to IDMS. An eGFR <60 mL/min/1.73m2 for >3 months is consistent with chronic kidney disease. Refer to KDOQI guidelines for clinical interpretation. In patients with unstable renal function, e.g. those with acute kidney injury, the eGFR may not accurately reflect actual GFR. Performed By: #### CBC, CMP, LIPA, HBA1C, HPYLRI #### [facility] [address] [place], [place] [address] LIPASE Collected: 12/16/2017 Status: F Source: [place] 12:58 PM [facility] REPOSITORY TYPE CODE TESTS RESULT OUT OF REFERENCE UNITS RANGE LAB LIPA 16-61 U/L Lipase 24 Performed By: #### CBC, CMP, LIPA, HBA1C, HPYLRI #### [facility] [address] [place] [address] HEMOGLOBIN A1C Collected: 12/16/2017 Status: F Source: [place] 12:58 PM [facility] REPOSITORY TYPE CODE TESTS RESULT OUT OF REFERENCE UNITS RANGE LAB HGBA1C 4.3-5.6 % High Hemoglobin A1c 5.9 LAB HBA0 mg/dL Est. Average Glucose 123 Result Comment: eAG: (Estimated average glucose) is a calculated value from HgbA1c and is merchandiser retail representative of the average blood glucose level in the last 2-3 month period. Performed By: #### CBC, CMP, LIPA, HBA1C, HPYLRI #### [place] [id number] [place] [address] HELICO PYLORI AB Collected: 12/16/2017 Status: F Source: [place] 12:58 PM [facility] REPOSITORY TYPE CODE TESTS RESULT OUT OF REFERENCE UNITS RANGE LAB HPYLRL Negative H. pylori Negative IgG, Qual Result Comment: H. pylori IgG antibodies were not detected in the sample. Negative results by this test do not preclude recent primary infection. LAB HPYLR U/mL H pylori Ab, IgG <0.4 Result Comment: U/mL are interpreted as follows: Negative specimens <0.9 Indeterminate specimens >=0.9 to <1.1 Positive specimens >=1.1 Results were obtained with the IMMULITE 2000 H.pylori IgG EIA. Results obtained from other manufacturers' assay methods may not be used interchangeably. Performed By: #### CBC, CMP, LIPA, HBA1C, HPYLRI #### [facility] [address] [place] [address] PROGRESS Observed: 12/16/2017 Status: COMPLETED Source: [place] 12:54 PM [facility] REPOSITORY HNO ID: [id number] Author: Jose Francisco Mckay Service: (none) Author Type: Physician Type: Progress Notes Filed: 12/16/2017 12:57 PM Note Text: CC: Linda De Oliveira is a 22 year old male who presents to the office for abdominal symptoms HPI: Chest heartburn symptoms, upper abdominal discomfort, present for the last 2-3 months, occasionally upset stomach symptoms, no bowel changes - denies diarrhea, constipation and blood in stool. Hasn't taken anything but a stomach pill for 1 day which didn't help of my dad's. 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 - Hypertriglyceridaemia 01/2015 - Impaired fasting blood sugar 01/2015 - Low HDL (under 40) 01/2015 - Other diseases of trachea and bronchus, not elsewhere classified 09/2000 - Tobacco use disorder PAST SURGICAL HISTORY Procedure Laterality Date - NONE - VASECTOMY Bilateral 01/30/2017 Social History: Social History Substance Use Topics - Smoking status: Current Every Day Smoker Packs/day: 3.00 Years: 5.00 Types: Cigarettes Start date: 2011 - Smokeless tobacco: Current User Types: Snuff - Alcohol use Yes Comment: rarely FAMILY HISTORY Problem Relation Age of Onset - Diabetes Mother Current Outpatient prescriptions: buPROPion XL (WELLBUTRIN XL) 300 mg 24 hr tablet Take 1 tablet by mouth once daily. albuterol sulfate 90 mcg/actuation aepb 2 puffs every 4-6 hours as needed for cough and wheeze lansoprazole (PREVACID) 30 mg capsule Take 1 capsule by mouth daily before breakfast. 1/2 hr before meal. QUEtiapine (SEROQUEL) 25 mg tablet Take 1 tablet by mouth daily at bedtime. Ivoegwhxxdawlrn-Uythbetea-TQ (BROMFED DM) 2-30-10 mg/5 mL syrup Take 5-10 mL by mouth four times daily as needed. guaiFENesin (MUCINEX) 600 mg 12 hr tablet Take 2 tablets by mouth twice daily. naproxen (NAPROSYN) 500 mg tablet Take 1 tablet by mouth twice daily as needed (for pain/inflammation). Take with food. QUEtiapine (SEROQUEL) 200 mg tablet Take 200 mg by mouth. Takes 1/2 tab daily atomoxetine (STRATTERA) 60 mg capsule Take 60 mg by mouth once daily. [place] Aspartate 20 mg cap Take by mouth twice daily. cyclobenzaprine (FLEXERIL) 5 mg tablet Take 1 tablet by mouth every 8 hours as needed for Muscle Spasm. Allergies: ALLERGIES Allergen Reactions - Augmentin [Amoxicil* Rash ROS: See HPI PE: 12/16/17 1228 BP: 120/70 Pulse: 80 Resp: 16 Temp: 36.6 ?C (97.8 ?F) TempSrc: Left Tympanic Weight: 103.4 kg (228 lb) Gen: AANDO, NAD, non-toxic appearing, cooperative HEENT: NT/AC, PERRLA, EOMs intact b/l, nares clear and patent b/l, pharynx without erythema, exudate or lesions. Uvula midline. MMM Neck: supple, No cervical LAD, no thyromegaly, no carotid bruits CV: RRR, normal S1 and S2, no murmurs, no gallops, no rubs, Pulses 2+ and symmetric in UE and LE b/l Lungs: normal respiratory effort, CTA b/l, no wheezing or rhonchi or rales Abd: soft, mild epigastric TTP, ND, +BS, no hepatosplenomegaly Skin: warm, dry, intact, No rashes or lesions on exposed skin. ASSESSMENT/PLAN: 1. Epigastric abdominal pain - ICD9: 789.06, ICD10: R10.13 (primary diagnosis) - Begin treatment with Prevacid 30 mg QD - Labs of CBC with Diff, CMP, H pylori Antibodies and Lipase - Discussed lifestyle modifications including losing weight, limiting caffeine, no meals three hours before sleep and head of bed elevation - H PYLORI IGG AB - LIPASE BLD - COMP METABOLIC PANEL - CBC - LANSOPRAZOLE 30 MG CAPSULE,DELAYED RELEASE 2. Nausea - ICD9: 787.02, ICD10: R11.0 - see above, likely due to gastritis/esophagitis - H PYLORI IGG AB - LIPASE BLD - COMP METABOLIC PANEL - CBC - LANSOPRAZOLE 30 MG CAPSULE,DELAYED RELEASE 3. IFG (impaired fasting glucose) - ICD9: 790.21, ICD10: R73.01 - recheck labs - HGB A1C 4. Gastroesophageal reflux disease, esophagitis presence not specified - ICD9: 530.81, ICD10: K21.9 - see above - LANSOPRAZOLE 30 MG CAPSULE,DELAYED RELEASE Jose Francisco Mckay DO To ER if develops chest pain, shortness of breath, or severe worsening of symptoms. Discussed risks, benefits, alternatives, and potential side effects of medications. Patient expressed understanding and agreed with the plan. Jose Francisco Mckay DO [address] [place] [id number] CNOV Observed: 12/16/2017 Status: COMPLETED Source: [place] 12:20 PM [facility] REPOSITORY Office Visit (FAMPWS) LINDA DE OLIVEIRA ([id number]) 1995 M Date Time Provider Department 12/16/17 12:20 PM JOSE FRANCISCO MCKAY During your visit today, we recorded the following information about you: Temperature Pulse Respiration Blood pressure 97.8 degrees 80/minute 16/minute 120/70 Weight 103.4 kg Jose Francisco Mckay DO 12/16/2017 12:57 PM Signed CC: Linda De Oliveira is a 22 year old male who presents to the office for abdominal symptoms HPI: Chest heartburn symptoms, upper abdominal discomfort, present for the last 2-3 months, occasionally upset stomach symptoms, no bowel changes - denies diarrhea, constipation and blood in stool. 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 - Hypertriglyceridaemia 01/2015 - Impaired fasting blood sugar 01/2015 - Low HDL (under 40) 01/2015 - Other diseases of trachea and bronchus, not elsewhere classified 09/2000 - Tobacco use disorder PAST SURGICAL HISTORY Procedure Laterality Date - NONE - VASECTOMY Bilateral 01/30/2017 Social History: Social History Substance Use Topics - Smoking status: Current Every Day Smoker Packs/day: 3.00 Years: 5.00 Types: Cigarettes Start date: 2011 - Smokeless tobacco: Current User Types: Snuff - Alcohol use Yes Comment: rarely FAMILY HISTORY Problem Relation Age of Onset - Diabetes Mother Current Outpatient prescriptions: buPROPion XL (WELLBUTRIN XL) 300 mg 24 hr tablet Take 1 tablet by mouth once daily. albuterol sulfate 90 mcg/actuation aepb 2 puffs every 4-6 hours as needed for cough and wheeze lansoprazole (PREVACID) 30 mg capsule Take 1 capsule by mouth daily before breakfast. 1/2 hr before meal. QUEtiapine (SEROQUEL) 25 mg tablet Take 1 tablet by mouth daily at bedtime. Jzjfabmuoxkeuun-Blgqptznr-WR (BROMFED DM) 2-30-10 mg/5 mL syrup Take 5-10 mL by mouth four times daily as needed. guaiFENesin (MUCINEX) 600 mg 12 hr tablet Take 2 tablets by mouth twice daily. naproxen (NAPROSYN) 500 mg tablet Take 1 tablet by mouth twice daily as needed (for pain/inflammation). Take with food. QUEtiapine (SEROQUEL) 200 mg tablet Take 200 mg by mouth. Takes 1/2 tab daily atomoxetine (STRATTERA) 60 mg capsule Take 60 mg by mouth once daily. [place] Aspartate 20 mg cap Take by mouth twice daily. cyclobenzaprine (FLEXERIL) 5 mg tablet Take 1 tablet by mouth every 8 hours as needed for Muscle Spasm. Allergies: ALLERGIES Allergen Reactions - Augmentin [Amoxicil* Rash ROS: See HPI PE: 12/16/17 1228 BP: 120/70 Pulse: 80 Resp: 16 Temp: 36.6 ?C (97.8 ?F) TempSrc: Left Tympanic Weight: 103.4 kg (228 lb) Gen: AANDamp;O, NAD, non-toxic appearing, cooperative HEENT: NT/AC, PERRLA, EOMs intact b/l, nares clear and patent b/l, pharynx without erythema, exudate or lesions. Uvula midline. MMM Neck: supple, No cervical LAD, no thyromegaly, no carotid bruits CV: RRR, normal S1 and S2, no murmurs, no gallops, no rubs, Pulses 2+ and symmetric in UE and LE b/l Lungs: normal respiratory effort, CTA b/l, no wheezing or rhonchi or rales Abd: soft, mild epigastric TTP, ND, +BS, no hepatosplenomegaly Skin: warm, dry, intact, No rashes or lesions on exposed skin. ASSESSMENT/PLAN: 1. Epigastric abdominal pain - ICD9: 789.06, ICD10: R10.13 (primary diagnosis) - Begin treatment with Prevacid 30 mg QD - Labs of CBC with Diff, CMP, H pylori Antibodies and Lipase - Discussed lifestyle modifications including losing weight, limiting caffeine, no meals three hours before sleep and head of bed elevation - H PYLORI IGG AB - LIPASE BLD - COMP METABOLIC PANEL - CBC - LANSOPRAZOLE 30 MG CAPSULE,DELAYED RELEASE 2. Nausea - ICD9: 787.02, ICD10: R11.0 - see above, likely due to gastritis/esophagitis - H PYLORI IGG AB - LIPASE BLD - COMP METABOLIC PANEL - CBC - LANSOPRAZOLE 30 MG CAPSULE,DELAYED RELEASE 3. IFG (impaired fasting glucose) - ICD9: 790.21, ICD10: R73.01 - recheck labs - HGB A1C 4. Gastroesophageal reflux disease, esophagitis presence not specified - ICD9: 530.81, ICD10: K21.9 - see above - LANSOPRAZOLE 30 MG CAPSULE,DELAYED RELEASE Jose Francisco Mckay DO To ER if develops chest pain, shortness of breath, or severe worsening of symptoms. Discussed risks, benefits, alternatives, and potential side effects of medications. Patient expressed understanding and agreed with the plan. Jose Francisco Mckay DO [address] [place] [address] Referring Provider: SELF [200] Allergies As of Date: 12/16/2017 Noted Allergy Reaction AUGMENTIN (AMOXICILLIN-POT CLAVUL*11/05/2005 2 - Rash Date Reviewed: 12/16/2017 Reviewed by: Maricel Sosa LPN - Fully Assessed Reason for Visit: Abdominal Pain [1] Cmt: acid reflux Primary Visit Diagnosis:Epigastric abdominal pain [R10.13] Other Visit Diagnoses:Nausea [R11.0] IFG (impaired fasting glucose) [R73.01] Gastroesophageal reflux disease, esophagitis presence not specified [K21.9] Order(s):H PYLORI IGG AB [SQHPYLRI] Order #: [id number] FUTURE LIPASE BLD [SQLIPA] Order #: [id number] FUTURE COMP METABOLIC PANEL [SQCMP] Order #: [id number] FUTURE HGB A1C [OAZGQ3H] Order #: [id number] FUTURE CBC [SQCBC] Order #: [id number] FUTURE lansoprazole (PREVACID) 30 mg capsuleTake 1 capsule by mouth daily before breakfast. 1/2 hr before meal.Disp: 30 capsuleRfl: 3 Prescriptions as of 12/16/2017 Sig: BUPROPION XL 300 MG 24 HR TAB Take 1 tablet by mouth once d* ALBUTEROL SULFATE 90 MCG/ACTU* 2 puffs every 4-6 hours as ne* LANSOPRAZOLE 30 MG CAPSULE,DE* Take 1 capsule by mouth daily* QUETIAPINE 25 MG TABLET Take 1 tablet by mouth daily * BROMPHENIRAMINE-PSEUDOEPHEDRI* Take 5-10 mL by mouth four ti* GUAIFENESIN ER 600 MG TABLET,* Take 2 tablets by mouth twice* NAPROXEN 500 MG TABLET Take 1 tablet by mouth twice * QUETIAPINE 200 MG TABLET Take 200 mg by mouth. Takes 1* ATOMOXETINE 60 MG CAPSULE Take 60 mg by mouth once geetha* LITHIUM ASPARTATE 20 MG CAPSU* Take by mouth twice daily. CYCLOBENZAPRINE 5 MG TABLET Take 1 tablet by mouth every * Problem List As Of Date 12/16/2017 Noted Resolved ATTN DEFICIT W HYPERACT [F90.9] Scoliosis [M41.9] INVALID FOR* Flat feet [M21.41, M21.42] INVALID FOR* Mood disorder (HCC) [F39] INVALID FOR* Tobacco abuse disorder [Z72.0] INVALID FOR* Elevated random blood glucose level [R73.09] INVALID FOR* Overweight (BMI 25.0-29.9) [E66.3] INVALID FOR* Chronic left shoulder pain [M25.512, G89.29] INVALID FOR* Prescriptions ordered this encounter Disp Refills Start End LANSOPRAZOLE 30 MG CAPSULE,DELAYED R* 30 c* 3 12/16/2017 Route: ORAL Sig: Take 1 capsule by mouth daily before breakfast. 1/2 hr before meal. Encounter Status:Closed by JOSE FRANCISCO MCKAY DO on 12/16/17 PROGRESS Observed: 12/07/2017 Status: COMPLETED Source: [place] 3:12 PM [facility] [place] REPOSITORY O ID: [id number] Author: Pham (Pt) Lev Service: (none) Author Type: Physical Therapist Type: Progress Notes Filed: 12/07/2017 3:15 PM Note Text: Episode Visit Count: 4 Therapist That Will Oversee The Plan Of Care: Pham Ohara Plan of Care Certification Date: 11/05/17 [facility]ATION [facility]ORTS THERAPY PHYSICAL THERAPY DISCONTINUANCE OF CARE PLAN OF CARE UPDATE: Assessment: Linda De Oliveira is discontinued from Physical Therapy services due to goal achievement and maximal benefit.. Patient was seen for 4 visits from No Data Recorded to 12/07/2017 and treatment included: Therapeutic exercise, Manual therapy, Self-chcf management and Patient/Family/Caregiver Education. Patient has seen vast improvements in strength, range of motion, and functional use of the arm/shoulder. Patient reports no pain for at least 2 weeks since he was seen last, has had no issues with lifting at work, sleeping, or any ADLs with use of the shoulder. Patient educated on importance of continuing exercises as prescribed for another month, and 1-2x/week as a part of a regular exercise and fitness program to maintain strength gains to protect against future injury. [place] in home exercise program. Met Patient will decrease pain rating by 2 points to meet minimal clinical important difference for numeric pain rating scale. Met Patient will increase active ROM of left shoulder abduction and functional external rotation to =R to allow pt to improved performance of ADLs. Met Patient will increase strength of left shoulder in all directions to 5/5 to allow for return to prior functional status and perform ADLs. Met Perform work tasks and ADLs with decreased report of symptoms/pain in 4 weeks. Met Perform sleeping without pain. Met Demonstrate improvement on functional score: Patient will improve his/her score on Quick DASH by 8% to indicate a Minimal Clinical Important Difference . Met SUBJECTIVE: Pt reports no issues at work with lifting with the shoulder. Pt denies any pain in the last week or so. Good with his exercises and he has been compliant. No issues with pain during sleeping.. Pain Score: 0/10 Pain Location: Arm - Left OBJECTIVE MEASURES WITH LEVEL OF FUNCTION: UE AROM L Shoulder Flex: 180 Degrees L Shoulder ABduction: 170 Degrees UE Strength R Core Inserter (Position 2) (lbs): 95 L Shoulder Flexion: 5/5 L Shoulder Abduction (C5): 5/5 L Shoulder Internal Rotation: 5/5 L Shoulder External Rotation: 5/5 L Core Inserter (Position 2) (lbs): 85 TREATMENT: Therapeutic Exercise: 1: Scaption steamboats 2 rounds of 2x10 2# 2: Side lying ER 2# and towel under elbow 3x10- pt required tactile cuing each set to prevent elbow extension compensation 3: Prone Y 3x10 2# 4: Prone T 3x10 2# Skilled Intervention: Patient was educated in proper exercise technique and purpose for exercises. Skilled judgment was provided in selection of appropriate interventions. Provided written instruction for home exercise program to facilitate proper performance and compliance. Billing: [facility]: Therapeutic Exercise ([id number]): 1:1 time: 18 minutes (1 unit: 8-22 mins) Total time: 18 minutes Pham Ohara PT CNTHERAPY Observed: 12/07/2017 Status: COMPLETED Source: [place] 2:45 PM [facility] REPOSITORY OT/PT/Speech Visit (PTWS) LINDA DE OLIVEIRA ([id number]) 1995 M Date Time Provider Department 12/07/17 2:45 PM PHAM OHARA (PT) PTWS Date Time Provider Department Center 12/07/2017 2:45 PM [id number], SEAN (PT)PTWS [facility] Reason for Visit: Physical Therapy [503] PT Discharge [752] Reason For Visit History Recorded Primary Visit Diagnosis:Chronic left shoulder pain [M25.512, G89.29] Allergies As of Date: 12/07/2017 Noted Allergy Reaction AUGMENTIN (AMOXICILLIN-POT CLAVUL*11/05/2005 2 - Rash Date Reviewed: 10/14/2017 Reviewed by: Maricel Sosa LPN - Fully Assessed Prescriptions as of 12/07/2017 Sig: QUETIAPINE 25 MG TABLET Take 1 tablet by mouth daily * Patient not taking: Reported on 03/01/2018 X BUPROPION XL 300 MG 24 HR TAB Take 1 tablet by mouth once d* X BROMPHENIRAMINE-PSEUDOEPHEDRI* Take 5-10 mL by mouth four ti* X ALBUTEROL SULFATE 90 MCG/ACTU* 2 puffs every 4-6 hours as ne* X GUAIFENESIN ER 600 MG TABLET,* Take 2 tablets by mouth twice* X NAPROXEN 500 MG TABLET Take 1 tablet by mouth twice * QUETIAPINE 200 MG TABLET Take 200 mg by mouth. Takes 1* ATOMOXETINE 60 MG CAPSULE Take 60 mg by mouth once geetha* LITHIUM ASPARTATE 20 MG CAPSU* Take by mouth twice daily. X CYCLOBENZAPRINE 5 MG TABLET Take 1 tablet by mouth every * Progress Notes: Pham Ohara, PT 12/07/2017 3:15 PM Signed Episode Visit Count: 4 Therapist That Will Oversee The Plan Of Care: Pham Ohara Plan of Care Certification Date: 11/05/17 REHABILITATION AND SPORTS THERAPY PHYSICAL THERAPY DISCONTINUANCE OF CARE PLAN OF CARE UPDATE: Assessment: Linda De Oliveira is discontinued from Physical Therapy services due to goal achievement and maximal benefit.. Patient was seen for 4 visits from No Data Recorded to 12/07/2017 and treatment included: Therapeutic exercise, Manual therapy, Self-chcf management and Patient/Family/Caregiver Education. Patient has seen vast improvements in strength, range of motion, and functional use of the arm/shoulder. Patient reports no pain for at least 2 weeks since he was seen last, has had no issues with lifting at work, sleeping, or any ADLs with use of the shoulder. Patient educated on importance of continuing exercises as prescribed for another month, and 1-2x/week as a part of a regular exercise and fitness program to maintain strength gains to protect against future injury. [place] in home exercise program. Met Patient will decrease pain rating by 2 points to meet minimal clinical important difference for numeric pain rating scale. Met Patient will increase active ROM of left shoulder abduction and functional external rotation to =R to allow pt to improved performance of ADLs. Met Patient will increase strength of left shoulder in all directions to 5/5 to allow for return to prior functional status and perform ADLs. Met Perform work tasks and ADLs with decreased report of symptoms/pain in 4 weeks. Met Perform sleeping without pain. Met Demonstrate improvement on functional score: Patient will improve his/her score on Quick DASH by 8% to indicate a Minimal Clinical Important Difference . Met SUBJECTIVE: Pt reports no issues at work with lifting with the shoulder. Pt denies any pain in the last week or so. Good with his exercises and he has been compliant. No issues with pain during sleeping.. Pain Score: 0/10 Pain Location: Arm - Left OBJECTIVE MEASURES WITH LEVEL OF FUNCTION: UE AROM L Shoulder Flex: 180 Degrees L Shoulder ABduction: 170 Degrees UE Strength R Core Inserter (Position 2) (lbs): 95 L Shoulder Flexion: 5/5 L Shoulder Abduction (C5): 5/5 L Shoulder Internal Rotation: 5/5 L Shoulder External Rotation: 5/5 L Core Inserter (Position 2) (lbs): 85 TREATMENT: Therapeutic Exercise: 1: Scaption steamboats 2 rounds of 2x10 2# 2: Side lying ER 2# and towel under elbow 3x10- pt required tactile cuing each set to prevent elbow extension compensation 3: Prone Y 3x10 2# 4: Prone T 3x10 2# Skilled Intervention: Patient was educated in proper exercise technique and purpose for exercises. Skilled judgment was provided in selection of appropriate interventions. Provided written instruction for home exercise program to facilitate proper performance and compliance. Billing: [facility]: Therapeutic Exercise ([id number]): 1:1 time: 18 minutes (1 unit: 8-22 mins) Total time: 18 minutes Pham Ohara PT PROGRESS Observed: 11/26/2017 Status: COMPLETED Source: [place] 4:12 PM [facility] [place] REPOSITORY HNO ID: [id number] Author: Pham Ohara Service: (none) Author Type: Physical Therapist Type: Progress Notes Filed: 11/26/2017 5:09 PM Note Text: Episode Visit Count: 3 Therapist That Will Oversee The Plan Of Care: Pham Ohara Plan of Care Certification Date: 11/05/17 REHABILITATION AND SPORTS THERAPY PHYSICAL THERAPY TREATMENT NOTE ASSESSMENT: Linda De Oliveira demonstrated difficulty with lifting and pulling motions, as well as pain with the top portion of exercises today. Patient cued With verbal and tactile cues to stop short of painful ranges on exercises but patient continued to do so unless tactile cuing was implemented from therapist. Concept of not pushing into pain was stressed heavily from therapist today for patient's follow through in [facility]. The patient will continue to benefit from continued skilled physical therapy for continued strengthening to decrease shoulder pain and improve shoulder stability. PLAN FOR NEXT VISIT: assess carry over and continue strength progression. May attempt perturbations again SUBJECTIVE: Pt was lifting and carrying a tv and air conditioner from his room when he felt a pop in the front of his arm. Different pain from previously, and he has not felt the pain he originally came to therapy for for a few weeks now. Only hurts when he is lifting something Pain Score: 2/10 Pain Location: Arm - Left Description: Aching Frequency: Intermittent OBJECTIVE MEASURES WITH LEVEL OF FUNCTION: Tenderness to upper portion of mm belly of long head of biceps TREATMENT: Therapeutic Exercise: 1: UBE x5 minutes 2.0 resistance arms and legs- subjective taken at this time 2: Scaption steamboats 2 rounds of 2x10 2# 3: Side lying ER 2# and towel under elbow 3x10- pt required tactile cuing each set to prevent elbow extension compensation Skilled Intervention: Patient was educated in proper exercise technique and purpose for exercises. Skilled judgment was provided in selection of appropriate interventions. Correct performance of therapeutic exercises was facilitated with verbal, visual and tactile cuing. Manual Therapy: 1: IASTM to left biceps x8 minutes- push to pt tolerance Skilled Intervention: Manual skills to improve joint mobility, ROM, and decrease pain. Utilized anatomy knowledge of the therapist, and assessment of patient's response to intervention. Billing: [facility]: Therapeutic Exercise ([id number]): 1:1 time: 31 minutes (2 units: 23-37 mins) Manual Therapy ([id number]): 1:1 time: 8 minutes (1 unit: 8-22 mins) Total time: 39 minutes Pham Ohara PT CNTHERAPY Observed: 11/26/2017 Status: COMPLETED Source: [place] 3:45 PM [facility] REPOSITORY OT/PT/Speech Visit (PTWS) LINDA DE OLIVEIRA ([id number]) 1995 M Date Time Provider Department 11/26/17 3:45 PM PHAM OHARA (PT) PTWS Date Time Provider Department Center 11/26/2017 3:45 PM [id number], SEAN (PT)PTWS [facility] Reason for Visit: Physical Therapy [503] Primary Visit Diagnosis:Chronic left shoulder pain [M25.512, G89.29] Allergies As of Date: 11/26/2017 Noted Allergy Reaction AUGMENTIN (AMOXICILLIN-POT CLAVUL*11/05/2005 2 - Rash Date Reviewed: 10/14/2017 Reviewed by: Maricel Sosa LPN - Fully Assessed Prescriptions as of 11/26/2017 Sig: QUETIAPINE 25 MG TABLET Take 1 tablet by mouth daily * BUPROPION XL 300 MG 24 HR TAB Take 1 tablet by mouth once d* BROMPHENIRAMINE-PSEUDOEPHEDRI* Take 5-10 mL by mouth four ti* ALBUTEROL SULFATE 90 MCG/ACTU* 2 puffs every 4-6 hours as ne* GUAIFENESIN ER 600 MG TABLET,* Take 2 tablets by mouth twice* NAPROXEN 500 MG TABLET Take 1 tablet by mouth twice * QUETIAPINE 200 MG TABLET Take 200 mg by mouth. Takes 1* ATOMOXETINE 60 MG CAPSULE Take 60 mg by mouth once geetha* LITHIUM ASPARTATE 20 MG CAPSU* Take by mouth twice daily. CYCLOBENZAPRINE 5 MG TABLET Take 1 tablet by mouth every * Progress Notes: Pham Ohara, PT 11/26/2017 5:09 PM Signed Episode Visit Count: 3 Therapist That Will Oversee The Plan Of Care: Pham Ohara Plan of Care Certification Date: 11/05/17 REHABILITATION AND SPORTS THERAPY PHYSICAL THERAPY TREATMENT NOTE ASSESSMENT: Linda De Oliveira demonstrated difficulty with lifting and pulling motions, as well as pain with the top portion of exercises today. Patient cued With verbal and tactile cues to stop short of painful ranges on exercises but patient continued to do so unless tactile cuing was implemented from therapist. Concept of not pushing into pain was stressed heavily from therapist today for patient's follow through in [facility]. The patient will continue to benefit from continued skilled physical therapy for continued strengthening to decrease shoulder pain and improve shoulder stability. PLAN FOR NEXT VISIT: assess carry over and continue strength progression. May attempt perturbations again SUBJECTIVE: Pt was lifting and carrying a tv and air conditioner from his room when he felt a pop in the front of his arm. Different pain from previously, and he has not felt the pain he originally came to therapy for for a few weeks now. Only hurts when he is lifting something Pain Score: 2/10 Pain Location: Arm - Left Description: Aching Frequency: Intermittent OBJECTIVE MEASURES WITH LEVEL OF FUNCTION: Tenderness to upper portion of mm belly of long head of biceps TREATMENT: Therapeutic Exercise: 1: UBE x5 minutes 2.0 resistance arms and legs- subjective taken at this time 2: Scaption steamboats 2 rounds of 2x10 2# 3: Side lying ER 2# and towel under elbow 3x10- pt required tactile cuing each set to prevent elbow extension compensation Skilled Intervention: Patient was educated in proper exercise technique and purpose for exercises. Skilled judgment was provided in selection of appropriate interventions. Correct performance of therapeutic exercises was facilitated with verbal, visual and tactile cuing. Manual Therapy: 1: IASTM to left biceps x8 minutes- push to pt tolerance Skilled Intervention: Manual skills to improve joint mobility, ROM, and decrease pain. Utilized anatomy knowledge of the therapist, and assessment of patient's response to intervention. Billing: [facility]: Therapeutic Exercise ([id number]): 1:1 time: 31 minutes (2 units: 23-37 mins) Manual Therapy ([id number]): 1:1 time: 8 minutes (1 unit: 8-22 mins) Total time: 39 minutes Pham Ohara PT CNTHERAPY Observed: 11/19/2017 Status: COMPLETED Source: [place] 4:30 PM [facility] REPOSITORY OT/PT/Speech Visit (PTWS) LINDA DE OLIVEIRA Carson ([id number]) 1995 M Date Time Provider Department 11/19/17 4:30 PM PHAM OHARA (PT) PTWS Date Time Provider Department Center 11/19/2017 4:30 PM [id number], SEAN (PT)PTWS [facility] Reason for Visit: Physical Therapy [503] Primary Visit Diagnosis:Chronic left shoulder pain [M25.512, G89.29] Allergies As of Date: 11/19/2017 Noted Allergy Reaction AUGMENTIN (AMOXICILLIN-POT CLAVUL*11/05/2005 2 - Rash Date Reviewed: 10/14/2017 Reviewed by: Maricel Sosa LPN - Fully Assessed Prescriptions as of 11/19/2017 Sig: QUETIAPINE 25 MG TABLET Take 1 tablet by mouth daily * BUPROPION XL 300 MG 24 HR TAB Take 1 tablet by mouth once d* BROMPHENIRAMINE-PSEUDOEPHEDRI* Take 5-10 mL by mouth four ti* ALBUTEROL SULFATE 90 MCG/ACTU* 2 puffs every 4-6 hours as ne* GUAIFENESIN ER 600 MG TABLET,* Take 2 tablets by mouth twice* NAPROXEN 500 MG TABLET Take 1 tablet by mouth twice * QUETIAPINE 200 MG TABLET Take 200 mg by mouth. Takes 1* ATOMOXETINE 60 MG CAPSULE Take 60 mg by mouth once geetha* LITHIUM ASPARTATE 20 MG CAPSU* Take by mouth twice daily. CYCLOBENZAPRINE 5 MG TABLET Take 1 tablet by mouth every * Progress Notes: Pham Ohara, PT 11/19/2017 4:32 PM Signed Episode Visit Count: 2 Therapist That Will Oversee The Plan Of Care: Pham Ohara Plan of Care Certification Date: 11/05/17 REHABILITATION AND SPORTS THERAPY PHYSICAL THERAPY TREATMENT NOTE ASSESSMENT: Linda De Oliveira demonstrated improvements in shoulder range of motion, strength, and decreased pain. Patient able to progress exercises today and issued G theraband and pulleys for HEP. The patient will continue to benefit from continued skilled physical therapy for continued strengthening and decreased pain. PLAN FOR NEXT VISIT: assess carry over and compliance of HEP, progress exercises per patient's tolerance SUBJECTIVE: Pt states that the shoulder hasn't been hurting nearly as much. Sleeping, work, and daily tasks are better. No problems with HEP Pain Score: 2/10 Pain Location: Shoulder - Left Description: Sharp Frequency: Intermittent OBJECTIVE MEASURES WITH LEVEL OF FUNCTION: Passive flexion: L: 170 degrees Passive abduction: L: 155 degrees TREATMENT: Therapeutic Exercise: 1: UBE x5 minutes 2.0 resistance arms and legs- subjective taken at this time 2: Scaption 2x10 3: Side lying ER using body weight and towel under elbow 2x10 4: Standing G Tband ER 2x10 5: Standing G Tband IR 2x10 6: Prone Y 2x10 7: Pulleys into flexion and abduction 2x20 each- cued for pain free range 8: Prone T-performed 10 reps and stated this was painful, ceased 9: Prone row- performed 10 and stated sharp pain, ceased Skilled Intervention: Patient was educated in proper exercise technique and purpose for exercises. Skilled judgment was provided in selection of appropriate interventions. Correct performance of therapeutic exercises was facilitated with verbal and visual cuing. Billing: [facility]: Therapeutic Exercise ([id number]): 1:1 time: 39 minutes (3 units: 38-52 mins) Total time: 39 minutes Pham Ohara PT PROGRESS Observed: 11/19/2017 Status: COMPLETED Source: [place] 4:29 PM [facility] REPOSITORY HNO ID: [id number] Author: Pham Ohara Service: (none) Author Type: Physical Therapist Type: Progress Notes Filed: 11/19/2017 4:32 PM Note Text: Episode Visit Count: 2 Therapist That Will Oversee The Plan Of Care: Pham Ohara Plan of Care Certification Date: 11/05/17 REHABILITATION AND SPORTS THERAPY PHYSICAL THERAPY TREATMENT NOTE ASSESSMENT: Linda De Oliveira demonstrated improvements in shoulder range of motion, strength, and decreased pain. Patient able to progress exercises today and issued G theraband and pulleys for HEP. The patient will continue to benefit from continued skilled physical therapy for continued strengthening and decreased pain. PLAN FOR NEXT VISIT: assess carry over and compliance of HEP, progress exercises per patient's tolerance SUBJECTIVE: Pt states that the shoulder hasn't been hurting nearly as much. Sleeping, work, and daily tasks are better. No problems with HEP Pain Score: 2/10 Pain Location: Shoulder - Left Description: Sharp Frequency: Intermittent OBJECTIVE MEASURES WITH LEVEL OF FUNCTION: Passive flexion: L: 170 degrees Passive abduction: L: 155 degrees TREATMENT: Therapeutic Exercise: 1: UBE x5 minutes 2.0 resistance arms and legs- subjective taken at this time 2: Scaption 2x10 3: Side lying ER using body weight and towel under elbow 2x10 4: Standing G Tband ER 2x10 5: Standing G Tband IR 2x10 6: Prone Y 2x10 7: Pulleys into flexion and abduction 2x20 each- cued for pain free range 8: Prone T-performed 10 reps and stated this was painful, ceased 9: Prone row- performed 10 and stated sharp pain, ceased Skilled Intervention: Patient was educated in proper exercise technique and purpose for exercises. Skilled judgment was provided in selection of appropriate interventions. Correct performance of therapeutic exercises was facilitated with verbal and visual cuing. Billing: [facility]: Therapeutic Exercise ([id number]): 1:1 time: 39 minutes (3 units: 38-52 mins) Total time: 39 minutes Pham Ohara PT PROGRESS Observed: 11/05/2017 Status: COMPLETED Source: [place] 4:55 PM [facility] [place] REPOSITORY HNO ID: [id number] Author: Pham (Ever) Lev Service: (none) Author Type: Physical Therapist Type: Progress Notes Filed: 11/05/2017 5:02 PM Note Text: Episode Visit Count: 1 Therapist That Will Oversee The Plan Of Care: Pham Ohara Plan of Care Certification Date: 11/05/17 REHABILITATION AND SPORTS THERAPY PHYSICAL THERAPY EVALUATION PLAN OF CARE: Assessment: Linda De Oliveira presents with the chief complaint of chronic left shoulder pain. He presents with impairments of limited range of motion, decreased strength, limited tolerance for ADLs and work tasks, as well as poor dynamic stability of the shoulder. He may benefit from skilled therapy services to improve the above noted deficits and improve overall function of the left shoulder. Patient demonstrates signs and symptoms consistent with supraspinatus irritation and possible labral or biceps tendon pathology with special testing today. Will work to achieve greater shoulder stability to decrease pain and improve function of the shoulder. Prognosis: Fair Fair due to: clinical presentation;chronic nature of impairments;limited tolerance to activity Goals for Episode of Care: created on through 01/05/18 [place] in home exercise program. Patient will decrease pain rating by 2 points to meet minimal clinical important difference for numeric pain rating scale. Patient will increase active ROM of left shoulder abduction and functional external rotation to =R to allow pt to improved performance of ADLs. Patient will increase strength of left shoulder in all directions to 5/5 to allow for return to prior functional status and perform ADLs. Perform work tasks and ADLs with decreased report of symptoms/pain in 4 weeks. Perform sleeping without pain. Demonstrate improvement on functional score: Patient will improve his/her score on Quick DASH by 8% to indicate a Minimal Clinical Important Difference . Planned Interventions, Frequency, and Duration: Current Frequency: 1x/week Duration: 4 weeks Total Number of Visits Planned: 4 Patient to be see for Planned Treatment Interventions: Therapeutic exercise;Neuromuscular re-education;Manual therapy;Self-chcf management;Patient/Family/Caregiver Education PLAN FOR NEXT VISIT: attempt pulleys and pendulums Patient demonstrates good understanding of plan of care and treatment. The above goals and plan of care were discussed and agreed upon by patient/family. SUBJECTIVE: Linda De Oliveira is a 22 year old male seen today for Pt comes in for left shoulder pain, x3-4 months. Pt has pain with basketball, reaching up and behind the head. Pt is able to do all his daily activities, but it does cause a lot of pain. 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 Pain is located on the lateral portion of the shoulder and can shoot down to the elbow. Pain feels sharp and stabbing, like needling poking him. Pt does take tylenol before bed, helps take the edge off and him to sleep better. Pain Score: 8/10 Pain Location: Shoulder - Left Description: Sharp Frequency: Intermittent OBJECTIVE MEASURES WITH LEVEL OF FUNCTION: UE AROM R Shoulder Flex: 165 Degrees R Shoulder ABduction: 140 Degrees R Shoulder Internal Rotation: (T8) R Shoulder External Rotation: (T4) L Shoulder Flex: 180 Degrees L Shoulder ABduction: 140 Degrees L Shoulder Internal Rotation: (T10) L Shoulder External Rotation: (T4) UE Joint Mobility L Shoulder joint mobility: (multidirectional laxity noted) UE Strength R UE Strength: 5/5 R Core Inserter (Position 2) (lbs): 95 L Shoulder Flexion: 4+/5 L Shoulder Abduction (C5): 4+/5 L Shoulder Internal Rotation: 5/5 L Shoulder External Rotation: 4/5 L Core Inserter (Position 2) (lbs): 82 Special Tests - Shoulder Shoulder Special Tests: Anterior Drawer;Apprehension;Biceps Load;Empty Can;Lawson-Jame;Kaufman;Speed's Anterior Drawer: Left Positive Apprehension: Left Positive Biceps Load: Left Positive Empty Can: Left Positive Lawson-Jame: Left Positive Kaufman: Left Positive Speed's: Left Positive Tenderness noted along supraspinatus, especially at insertion on lesser tubercle, biceps tendon at bicipital groove Education: TREATMENT: Evaluation Therapeutic Exercise: 1: Side lying ER using body weight and towel under elbow 2x10 2: Scaption 2x10 3: Standing G Tband ER- pt did not tolerate, ceased after 5 reps 4: Standing G Tband IR- pt did not tolerate this was ceased Skilled Intervention: Patient was educated in proper exercise technique and purpose for exercises. Skilled judgment was provided in selection of appropriate interventions. Correct performance of therapeutic exercises was facilitated with verbal and visual cuing. Billing: [facility]: Evaluation - Low Complexity (44367) Therapeutic Exercise (07403): 1:1 time: 10 minutes (1 unit: 8-22 mins) Total time: 40 minutes Pham Ohara PT CNTHERAPY Observed: 11/05/2017 Status: COMPLETED Source: [place] 3:00 PM [facility] REPOSITORY OT/PT/Speech Visit (PTWS) LINDA DE OLIVEIRA ([id number]) 1995 M Date Time Provider Department 11/05/17 3:00 PM PHAM OHARA (PT) PTWS Date Time Provider Department Center 11/05/2017 3:00 PM [id number], SEAN (PT)PTWS [facility] Reason for Visit: PT Eval [747] Physical Therapy [503] Primary Visit Diagnosis:Chronic left shoulder pain [M25.512, G89.29] Allergies As of Date: 11/05/2017 Noted Allergy Reaction AUGMENTIN (AMOXICILLIN-POT CLAVUL*11/05/2005 2 - Rash Date Reviewed: 10/14/2017 Reviewed by: Maricel Sosa LPN - Fully Assessed Prescriptions as of 11/05/2017 Sig: QUETIAPINE 25 MG TABLET Take 1 tablet by mouth daily * BUPROPION XL 300 MG 24 HR TAB Take 1 tablet by mouth once d* BROMPHENIRAMINE-PSEUDOEPHEDRI* Take 5-10 mL by mouth four ti* ALBUTEROL SULFATE 90 MCG/ACTU* 2 puffs every 4-6 hours as ne* GUAIFENESIN ER 600 MG TABLET,* Take 2 tablets by mouth twice* NAPROXEN 500 MG TABLET Take 1 tablet by mouth twice * QUETIAPINE 200 MG TABLET Take 200 mg by mouth. Takes 1* ATOMOXETINE 60 MG CAPSULE Take 60 mg by mouth once geetha* LITHIUM ASPARTATE 20 MG CAPSU* Take by mouth twice daily. CYCLOBENZAPRINE 5 MG TABLET Take 1 tablet by mouth every * Progress Notes: Pham Ohara, PT 11/05/2017 5:02 PM Signed Episode Visit Count: 1 Therapist That Will Oversee The Plan Of Care: Pham Ohara Plan of Care Certification Date: 11/05/17 [facility] PHYSICAL THERAPY EVALUATION PLAN OF CARE: Assessment: Linda De Oliveira presents with the chief complaint of chronic left shoulder pain. He presents with impairments of limited range of motion, decreased strength, limited tolerance for ADLs and work tasks, as well as poor dynamic stability of the shoulder. He may benefit from skilled therapy services to improve the above noted deficits and improve overall function of the left shoulder. Patient demonstrates signs and symptoms consistent with supraspinatus irritation and possible labral or biceps tendon pathology with special testing today. Will work to achieve greater shoulder stability to decrease pain and improve function of the shoulder. Prognosis: Fair Fair due to: clinical presentation;chronic nature of impairments;limited tolerance to activity Goals for Episode of Care: created on through 01/05/18 [place] in home exercise program. Patient will decrease pain rating by 2 points to meet minimal clinical important difference for numeric pain rating scale. Patient will increase active ROM of left shoulder abduction and functional external rotation to =R to allow pt to improved performance of ADLs. Patient will increase strength of left shoulder in all directions to 5/5 to allow for return to prior functional status and perform ADLs. Perform work tasks and ADLs with decreased report of symptoms/pain in 4 weeks. Perform sleeping without pain. Demonstrate improvement on functional score: Patient will improve his/her score on Quick DASH by 8% to indicate a Minimal Clinical Important Difference . Planned Interventions, Frequency, and Duration: Current Frequency: 1x/week Duration: 4 weeks Total Number of Visits Planned: 4 Patient to be see for Planned Treatment Interventions: Therapeutic exercise;Neuromuscular re-education;Manual therapy;Self-chcf management;Patient/Family/Caregiver Education PLAN FOR NEXT VISIT: attempt pulleys and pendulums Patient demonstrates good understanding of plan of care and treatment. The above goals and plan of care were discussed and agreed upon by patient/family. SUBJECTIVE: Linda De Oliveira is a 22 year old male seen today for Pt comes in for left shoulder pain, x3-4 months. Pt has pain with basketball, reaching up and behind the head. Pt is able to do all his daily activities, but it does cause a lot of pain. 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 Pain is located on the lateral portion of the shoulder and can shoot down to the elbow. Pain feels sharp and stabbing, like needling poking him. Pt does take tylenol before bed, helps take the edge off and him to sleep better. Pain Score: 8/10 Pain Location: Shoulder - Left Description: Sharp Frequency: Intermittent OBJECTIVE MEASURES WITH LEVEL OF FUNCTION: UE AROM R Shoulder Flex: 165 Degrees R Shoulder ABduction: 140 Degrees R Shoulder Internal Rotation: (T8) R Shoulder External Rotation: (T4) L Shoulder Flex: 180 Degrees L Shoulder ABduction: 140 Degrees L Shoulder Internal Rotation: (T10) L Shoulder External Rotation: (T4) UE Joint Mobility L Shoulder joint mobility: (multidirectional laxity noted) UE Strength R UE Strength: 5/5 R Core Inserter (Position 2) (lbs): 95 L Shoulder Flexion: 4+/5 L Shoulder Abduction (C5): 4+/5 L Shoulder Internal Rotation: 5/5 L Shoulder External Rotation: 4/5 L Core Inserter (Position 2) (lbs): 82 Special Tests - Shoulder Shoulder Special Tests: Anterior Drawer;Apprehension;Biceps Load;Empty Can;Lawson-Jame;Kaufman;Speed's Anterior Drawer: Left Positive Apprehension: Left Positive Biceps Load: Left Positive Empty Can: Left Positive Lawson-Jame: Left Positive Kaufman: Left Positive Speed's: Left Positive Tenderness noted along supraspinatus, especially at insertion on lesser tubercle, biceps tendon at bicipital groove Education: TREATMENT: Evaluation Therapeutic Exercise: 1: Side lying ER using body weight and towel under elbow 2x10 2: Scaption 2x10 3: Standing G Tband ER- pt did not tolerate, ceased after 5 reps 4: Standing G Tband IR- pt did not tolerate this was ceased Skilled Intervention: Patient was educated in proper exercise technique and purpose for exercises. Skilled judgment was provided in selection of appropriate interventions. Correct performance of therapeutic exercises was facilitated with verbal and visual cuing. Billing: [facility]: Evaluation - Low Complexity (04913) Therapeutic Exercise (13986): 1:1 time: 10 minutes (1 unit: 8-22 mins) Total time: 40 minutes Pham Ohara PT EDMOND Observed: 10/29/2017 Status: COMPLETED Source: [place] 12:00 AM [facility] REPOSITORY Telephone () LINDA DE OLIVEIRA ([id number]) 1995 M Date Time Provider Department 10/29/17 YONATAN CRONIN During your visit today, we recorded the following information about you: Rachell Pizarro Ma 10/29/2017 5:36 PM Signed ----- Message from Yonatan Cronin V sent at 10/29/2017 1:21 PM EST ----- MRI shows inflammation of rotator cuff, but no tear. There is an area of abnormality at the base of the labrum inside the shoulder joint, but no obvious tear. Recommended treatment is PT, with consideration for cortisone injection if not improving. DO Rachell Lopez Ma 10/29/2017 5:39 PM Signed Patient notified of results and provider's instructions. Patient would like an order for physical therapy to schedule appointment. Yonatan Cronin DO 10/30/2017 7:39 AM Signed order entered DO Cara Lopez RN, RN 10/30/2017 11:19 AM Signed PSR's please call patient to schedule PT, order is in. Cara Bey RN Allergies As of Date: 10/29/2017 Noted Allergy Reaction AUGMENTIN (AMOXICILLIN-POT CLAVUL*11/05/2005 2 - Rash Date Reviewed: 10/14/2017 Reviewed by: Maricel Sosa LPN - Fully Assessed Reason for Visit: Results - Mri [3561] Primary Visit Diagnosis:Rotator cuff tendonitis, unspecified laterality [M75.80] Order(s):CONSULT TO PHYSICAL THERAPY [9032] Order #: [id number]: 1 Prescriptions as of 10/29/2017 Sig: QUETIAPINE 25 MG TABLET Take 1 tablet by mouth daily * BUPROPION XL 300 MG 24 HR TAB Take 1 tablet by mouth once d* BROMPHENIRAMINE-PSEUDOEPHEDRI* Take 5-10 mL by mouth four ti* ALBUTEROL SULFATE 90 MCG/ACTU* 2 puffs every 4-6 hours as ne* GUAIFENESIN ER 600 MG TABLET,* Take 2 tablets by mouth twice* NAPROXEN 500 MG TABLET Take 1 tablet by mouth twice * QUETIAPINE 200 MG TABLET Take 200 mg by mouth. Takes 1* ATOMOXETINE 60 MG CAPSULE Take 60 mg by mouth once geetha* LITHIUM ASPARTATE 20 MG CAPSU* Take by mouth twice daily. CYCLOBENZAPRINE 5 MG TABLET Take 1 tablet by mouth every * Problem List As Of Date 10/29/2017 Noted Resolved ATTN DEFICIT W HYPERACT [F90.9] Scoliosis [M41.9] INVALID FOR* Flat feet [M21.41, M21.42] INVALID FOR* Mood disorder (HCC) [F39] INVALID FOR* Tobacco abuse disorder [Z72.0] INVALID FOR* Elevated random blood glucose level [R73.09] INVALID FOR* Overweight (BMI 25.0-29.9) [E66.3] INVALID FOR* Encounter Status:Closed by YONATAN CRONIN DO, V on 10/30/17 MRI SHOULDER WO IVCON Observed: 10/28/2017 Status: F Source: [facility] 10:59 AM [facility] [place] REPOSITORY * * *Final Report* * * DATE OF EXAM: Oct 28 2017 10:59AM WRM 0239 - MRI SHOULDER WO IVCON LT / PROCEDURE REASON: Strain of unspecified muscle, fascia and tendon at shoulder and upper arm level, * * * * Physician Interpretation * * * * HISTORY: Strain of unspecified muscle, fascia and tendon at shoulder and upper arm level, left arm, subsequent encounter. LEFT SHOULDER PAIN X 3 MONTHS INJURED PLAYING BASKETBALL TECHNIQUE: Routine non-contrast MRI of the left shoulder. COMPARISON: Left shoulder radiographs 10/14/2017 RESULT: Tendons: Supraspinatus: Intact. Infraspinatus: Mild tendinosis without tear. Subscapularis: Intact. Teres Minor: Intact. Biceps Tendon: Long head of the biceps tendon is intact and appropriately located. Muscle: Muscle bulk and signal intensity are within normal limits. Labrum: Minimal increased signal in the base of the labrum superiorly extending posterior to the biceps anchor but not definitively merchandiser retail representative of a tear (series 5 image 10). No tear seen otherwise. No para labral cyst. Bones and Marrow: Small subcortical cyst at the greater tuberosity posteriorly. No acute fracture or suspicious marrow replacing process. Glenohumeral Joint (including cartilage): Glenohumeral joint is within normal limits. Acromioclavicular Joint: Acromioclavicular joint is within normal limits. Mild increased signal within the subacromial subdeltoid bursa. IMPRESSION: Mild tendinosis of the rotator cuff without tear. Mild bursal signal changes possibly representing minimal bursitis. Additional findings as described. Metal Expediter: ALEX Transcribe Date/Time: Oct 28 2017 11:51A Dictated by : LEEANN BLEVINS MD This examination was interpreted and the report reviewed and electronically signed by: NITA GUTIERREZ MD on Oct 28 2017 12:20PM EST [id number] PROGRESS Observed: 10/28/2017 Status: COMPLETED Source: [place] 10:50 AM [facility] REPOSITORY HNO ID: [id number] Author: Karla Lomax Service: (none) Author Type: (none) Type: Progress Notes Filed: 10/28/2017 10:50 AM Note Text: Radiology Service Progress Note PATIENT NAME: Linda De Oliveira DATE OF SERVICE: October 28, 2017 TIME: 10:50 AM PATIENT IDENTITY VERIFICATION COMPLETED USING TWO (2) METHODS: Patient confirmed name verbally and Date of . PATIENT GENDER DATA: Male PATIENT RELEVANT IMPLANT DATA REVIEWED: Yes RADIOLOGY DEPARTMENT: MR; Exam(s) Completed: Upper MSK: Shoulder, left PERIPHERAL IV DATA: Not applicable SIGNED BY: Karla Lomax October 28, 2017 10:50 AM PROGRESS Observed: 10/14/2017 Status: COMPLETED Source: [place] 4:12 PM [facility] REPOSITORY HNO ID: [id number] Author: Yonatan Cronin V Service: (none) Author Type: Physician Type: Progress Notes Filed: 10/14/2017 4:17 PM Note Text: Jose Francisco Mckay DO [address] [facility] [address] Mr. De Oliveira is a 22 year old male that presents today complaining of shoulder problems on the left side for the last 3 months. He claims that this pain is directly due to injury while playing basketball- thinks he may have dislocated the shoulder when reaching for a ball and his arm was forced backward. The pain is described as chronic and constant located in the side of the shoulder. Patient states that his pain level is a number 9 on a scale of 1-10 at worst. Denies that neck motion reproduces the pain Denies pain below the elbow Denies numbness or tingling in the arm Patient has difficulty with putting their arms behind their back and lifting items. and reports pain but no loss of motion. ALLERGIES: Augmentin [Amoxicillin-Pot Clavulanate] MEDICATIONS: Current Outpatient Prescriptions: QUEtiapine (SEROQUEL) 25 mg tablet Take 1 tablet by mouth daily at bedtime. buPROPion XL (WELLBUTRIN XL) 300 mg 24 hr tablet Take 1 tablet by mouth once daily. predniSONE (DELTASONE) 10 mg tablet Take 4 tabs daily for 3 days, then 2 tabs daily for 3 days, then 1 tab daily for 3 days with food. Awuchcwdexuhojr-Rnrjmgoqs-GM (BROMFED DM) 2-30-10 mg/5 mL syrup Take 5-10 mL by mouth four times daily as needed. albuterol sulfate 90 mcg/actuation aepb 2 puffs every 4-6 hours as needed for cough and wheeze guaiFENesin (MUCINEX) 600 mg 12 hr tablet Take 2 tablets by mouth twice daily. naproxen (NAPROSYN) 500 mg tablet Take 1 tablet by mouth twice daily as needed (for pain/inflammation). Take with food. QUEtiapine (SEROQUEL) 200 mg tablet Take 200 mg by mouth. Takes 1/2 tab daily atomoxetine (STRATTERA) 60 mg capsule Take 60 mg by mouth once daily. [place] Aspartate 20 mg cap Take by mouth twice daily. cyclobenzaprine (FLEXERIL) 5 mg tablet Take 1 tablet by mouth every 8 hours as needed for Muscle Spasm. No current facility-administered medications for this visit. 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 - Hypertriglyceridaemia 01/2015 - Impaired fasting blood sugar 01/2015 - Low HDL (under 40) 01/2015 - Other diseases of trachea and bronchus, not elsewhere classified 09/2000 - Tobacco use disorder SURGICAL HISTORY: PAST SURGICAL HISTORY Procedure Laterality Date - NONE - VASECTOMY Bilateral 01/30/2017 FAMILY HISTORY: FAMILY HISTORY Problem Relation Age of Onset - Diabetes Mother SOCIAL HISTORY: Social History Marital status: Single Spouse name: Years of education: Number of children: Social History Main Topics Smoking status: Current Every Day Smoker Packs/day: 3.00 Years: 5.00 Types: Cigarettes Start date: 2011 Smokeless status: Current User Types: Snuff Alcohol use: Yes Comment: rarely Drug use: No Social History Narrative Mother Brant Pinzon PHYSICAL ASSESSMENT: ATROPHY: No PAIN TO PALPATION: Yes, glenohumeral region of left shoulder, anterior and lateral. ACTIVE ROM: Elevation: 170 Internal Rotation: 60 External Rotation: 50- guarded ROTATOR CUFF STRENGTH: Abnormal 4/5 on left IMPINGEMENT SIGN: negative Hawkin's test. Laxity noted with AP glide, mild shoulder subluxation with traction to shoulder RADIOGRAPH: no acute abnormality noted ASSESSMENT: shoulder instability- concerning for glenoid labrum injury PLAN: Patient shows pattern of recurrence shoulder subluxation, with instability on left compared to right when passive AP translation applied. Due to concerns over shoulder instability with acute injury, MRI is recommended to evaluate glenoid labrum for derangement. Yonatan Cronin DO PROGRESS Observed: 10/14/2017 Status: COMPLETED Source: [place] 1:51 PM [facility] REPOSITORY HNO ID: [id number] Author: Kristin Sanchez Ma Service: (none) Author Type: (none) Type: Progress Notes Filed: 10/14/2017 4:17 PM Note Text: AMB ROOMING INTAKE FLOWSHEET DATA Pain Pain Score: 9/10 Pain Location: Shoulder-Left Description: Sharp Duration Amount of Time: 3 Duration Units: Months Frequency: Intermittent Intervention: Medication, Cold Patient here today for evaluation of left shoulder pain x 3 months after falling while playing basketball. He is right hand dominant, works at [employer], does a lot of lifting. XR SHLDR >/=3V Observed: 10/14/2017 Status: F Source: [place] AP/MAGDALENA AP/OTHR LT 1:24 PM [facility] REPOSITORY * * *Final Report* * * DATE OF EXAM: Oct 14 2017 1:24PM WOX [id number] - XR SHLDR >/=3V AP/MAGDALENA AP/OTHR LT / PROCEDURE REASON: Pain in left shoulder * * * * Physician Interpretation * * * * PROCEDURE: Left knee and left shoulder INDICATION: Pain in left knee Unspecified injury of left lower leg, initial encounter . Pain in left shoulder. Status post fall TECHNIQUE: XR KNEE 4V AP/PA BOTH+LAT/IRIS LT, XR SHLDR >/=3V AP/MAGDALENA AP/OTHR LT COMPARISON: None FINDINGS: Left knee: No fractures or dislocations. Joint spaces are maintained. No joint effusion. Left shoulder: No fractures or dislocations are seen. Glenohumeral and acromioclavicular joints are within normal limits. Subacromial space is maintained. Upper ribs are intact. IMPRESSION: No acute abnormality. Metal Expediter: ALEX Transcribe Date/Time: Oct 14 2017 1:41P Dictated by : DARREN KHAN MD This examination was interpreted and the report reviewed and electronically signed by: DARREN KHAN MD on Oct 14 2017 1:42PM EST [id number] XR KNEE 4V AP/PA Observed: 10/14/2017 Status: F Source: [place] BOTH+LAT/IRIS LT 1:24 PM [facility] REPOSITORY * * *Final Report* * * DATE OF EXAM: Oct 14 2017 1:24PM WOX [id number] - XR KNEE 4V AP/PA BOTH+LAT/IRIS LT / PROCEDURE REASON: multiple diagnoses * * * * Physician Interpretation * * * * PROCEDURE: Left knee and left shoulder INDICATION: Pain in left knee Unspecified injury of left lower leg, initial encounter . Pain in left shoulder. Status post fall TECHNIQUE: XR KNEE 4V AP/PA BOTH+LAT/IRIS LT, XR SHLDR >/=3V AP/MAGDALENA AP/OTHR LT COMPARISON: None FINDINGS: Left knee: No fractures or dislocations. Joint spaces are maintained. No joint effusion. Left shoulder: No fractures or dislocations are seen. Glenohumeral and acromioclavicular joints are within normal limits. Subacromial space is maintained. Upper ribs are intact. IMPRESSION: No acute abnormality. Metal Expediter: [facility] Transcribe Date/Time: Oct 14 2017 1:41P Dictated by : DARREN KHAN MD This examination was interpreted and the report reviewed and electronically signed by: DARREN KHAN MD on Oct 14 2017 1:42PM EST [id number] PROGRESS Observed: 10/14/2017 Status: COMPLETED Source: [place] 12:59 PM [facility] REPOSITORY HNO ID: [id number] Author: Meg Crews (Rt) Molly García Service: (none) Author Type: Beam Warper Type: Progress Notes Filed: 10/14/2017 1:24 PM Note Text: Radiology Service Progress Note PATIENT NAME: Linda De Oliveira DATE OF SERVICE: October 14, 2017 TIME: 12:59 PM PATIENT IDENTITY VERIFICATION COMPLETED USING TWO (2) METHODS: Patient confirmed name verbally and Date of . PATIENT GENDER DATA: Male PATIENT RELEVANT IMPLANT DATA REVIEWED: Not Applicable RADIOLOGY DEPARTMENT: General X-ray: Exam(s) Completed: Lower Extremity X-Ray(s): Knee, AP / Lat / Tunne / Merchant Left: Upper Extremity X-Ray(s): Shoulder, AP / TRUE AP / SUPRA OUTLET left : PERIPHERAL IV DATA: Not applicable SIGNED BY: RT Ester October 14, 2017 12:59 PM PROGRESS Observed: 10/14/2017 Status: COMPLETED Source: [place] 12:35 PM [facility] REPOSITORY HNO ID: [id number] Author: Jose Francisco Mckay Service: (none) Author Type: Physician Type: Progress Notes Filed: 10/14/2017 1:07 PM Note Text: CC: Linda De Oliveira is a 22 year old male who presents to the office for knee pain HPI: Left knee pain, present for the last 3 days. States that at his home 3 days ago he slipped on water and leg was extended out in front of him when he fell, no obvious swelling, did have knee pain within hours. Some relief with ibuprofen 1-2 doses that he took, no redness. No use of brace. Did try some ice for one short time period. Depression, no SI or HI, taking Wellbutrin 150 mg a day, admits to increased stressors, living at home with mother and father. Difficulty with sleeping, was on Seroquel at bedtime in the past with improvement. Has a few friends that are supportive. 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 buPROPion XL (WELLBUTRIN XL) 150 mg 24 hr tablet Take 1 tablet by mouth once daily. albuterol sulfate 90 mcg/actuation aepb 2 puffs every 4-6 hours as needed for cough and wheeze guaiFENesin (MUCINEX) 600 mg 12 hr tablet Take 2 tablets by mouth twice daily. naproxen (NAPROSYN) 500 mg tablet Take 1 tablet by mouth twice daily as needed (for pain/inflammation). Take with food. QUEtiapine (SEROQUEL) 200 mg tablet Take 200 mg by mouth. Takes 1/2 tab daily atomoxetine (STRATTERA) 60 mg capsule Take 60 mg by mouth once daily. [place] Aspartate 20 mg cap Take by mouth twice daily. cyclobenzaprine (FLEXERIL) 5 mg tablet Take 1 tablet by mouth every 8 hours as needed for Muscle Spasm. No current facility-administered medications for this visit. ALLERGIES Allergen Reactions - Augmentin [Amoxicil* Rash Social History Marital status: Single Spouse name: Years of education: Number of children: Social History Main Topics Smoking status: Current Every Day Smoker Packs/day: 3.00 Years: 5.00 Types: Cigarettes Start date: 2011 Smokeless status: Current User Types: Snuff Alcohol use: Yes Comment: rarely Drug use: No Social History Narrative Mother Brant Pinzon ROS: See HPI PE: BP 130/80 Pulse 80 Temp (Src) 97 (Right Tympanic) Resp 20 Wt 233 lb (105.7kg) Gen: AANDOX3, NAD, non-toxic appearing Skin: No rashes, lesions, or wounds on exposed skin. Left knee mild effusion and discomfort with patellar testing, intact ACL and PCL, no joint line TTP, no posterior knee fullness, normal victor hugo and gerson. Mildly antalgic gait ASSESSMENT/PLAN: 1. Acute pain of left knee - ICD9: 719.46, ICD10: M25.562 (primary diagnosis) - xray if not improved, Prednisone taper and icing as d/w him today, Likely strain of ligament based on exam - XR KNEE GENERAL 4V AP BOTH/PA BOTH/LAT/MERC LT - PREDNISONE 10 MG TABLET 2. Injury of left knee, initial encounter - ICD9: 959.7, ICD10: S89.92XA - see above - XR KNEE GENERAL 4V AP BOTH/PA BOTH/LAT/MERC LT - PREDNISONE 10 MG TABLET 3. Tobacco abuse disorder - ICD9: 305.1, ICD10: Z72.0 - Cessation encouraged. - Physiologic and physical aspects of tobacco addiction as well as strategies for quitting were discussed. - Counseling was given focusing on the harmful effects of this addiction especially given the patient's medical condition(s) which will be worsened because of the chemicals in tobacco. - BUPROPION XL 300 MG 24 HR TAB 4. Situational depression - ICD9: 309.0, ICD10: F43.21 - increase dose of wellbutrin, add on Seroquel at bedtime, f/u with Psychologist for counseling - QUETIAPINE 25 MG TABLET - BUPROPION XL 300 MG 24 HR TAB 5. Adjustment insomnia - ICD9: 307.41, ICD10: F51.02 - see above - QUETIAPINE 25 MG TABLET Jose Francisco Mckay DO Return if no improvement. Follow up with Jose Francisco Mckay DO. Discussed risks, benefits, alternatives, and potential side effects of medications. Patient/Guardian expressed understanding and agreed with the plan. See patient instructions. Jose Francisco Mckay DO [address] [place] [address] ALLERGIES ALLERGIES DATE TYPE / CODE NAME / CODE REACTION SEVERITY SOURCE 08/02/2018 Drug amoxicillin Rash Unknown [place] Allergy/416 trihydrate/[id number] [facility] [id number]([facility] 707([facility]) Repository 08/02/2018 Drug potassium Rash Unknown [place] Allergy/416 clavulanate/[id number] [facility] [id number]([facility] 2809([facility]) Repository 11/05/2005 DRUG/[id number] AMOXICILLIN-POT RASH [facility] 003(SNOMED CLAVULANATE Main [place] [address]) Repository ENCOUNTERS ENCOUNTERS ADMIT/DISCHARGE ACCOUNT ADMITTING ENCOUNTER LOCATION SOURCE NUMBER CLASS 08/02/2018/08/03/20 [id number] Emergency [address] ing:ED Repository 03/01/2018/03/02/20 [id number] Ambulatory [address] Repository 02/22/2018/02/23/20 [id number] Ambulatory [address] Repository 02/22/2018/02/25/20 [id number] Ambulatory [place] [facility] [place] Repository 01/05/2018/01/07/20 [id number] Ambulatory [address] [place] Repository 12/16/2017/12/17/19 [id number] Ambulatory [address] [place] Repository 12/16/2017/12/18/19 [id number] Ambulatory [address] [place] Repository 12/07/2017/12/09/19 [id number] Ambulatory [place] [facility] [place] Repository 11/26/2017/08/13/20 [id number] Ambulatory [place] [facility] [place] Repository 11/19/2017/07/07/20 [id number] Ambulatory [address] [place] Repository 11/05/2017/11/10/19 [id number] Ambulatory [address] [place] Repository 10/28/2017/10/28/19 [id number] Ambulatory [address] [place] Repository 10/14/2017/10/14/19 [id number] Ambulatory [address] [place] Repository 10/14/2017/10/14/19 [id number] Ambulatory [address] [place] Repository 10/14/2017/10/14/19 [id number] Ambulatory [address] [place] Repository PAYERS PAYERS ENCOUNTER GUARANTOR PAYER SUBSCRIBER SOURCE 08/02/2018 Linda De Oliveira1262 [place] [facility] [place]: [id number] [id number] Repository 12849Vaq: (234) Date:2018-08-02 [phone] (HP) 08/02/2018 Secondary NOT ASHLEY Bar Insurance:SELF PAY [facility] Number: Effective Repository Date:2018-08-02
== END 2018-08-03 00:29 | disposition home or self-care (01) ==
PROVIDERS: Emergency Provider Emergency Medicine; Family Provider Student in an Organized Health Care Education/Training Program; PCP Student in an Organized Health Care Education/Training Program
DX: K02.9 Dental caries, unspecified (principal); F41.9 Anxiety disorder, unspecified; Z72.0 Tobacco use
CPT/HCPCS: 99283

== ENCOUNTER 2018-09-12 18:22 | Inpatient (IN) | payer MEDICAID, SELFPAY ==
[2018-09-12] VITALS (7 sets, daily range): BP systolic 110–137; BP diastolic 62–78; PULSE 119–141; RESP 18–117; TEMP 36.9–38; O2SAT 90–95; BMI 30.4; BMI 29.3
--- NOTE | 2018-09-12 19:22 | EKG12_ITS ---
Test Reason : N/V Blood Pressure : / mmHG Vent. Rate : 136 BPM Atrial Rate : 136 BPM P-R Int : 140 ms QRS Dur : 072 ms QT Int : 266 ms P-R-T Axes : 039 031 022 degrees QTc Int : 400 ms Sinus tachycardia Otherwise normal ECG Confirmed by ALINE VASQUEZ, JAYLENE ([id number]), design editor MARLEY ALAMO ([id number] on 09/14/2018 9:34:05 AM Referred By: MAYO Confirmed By:JAYLENE MIRELES MD
--- NOTE | 2018-09-12 19:22 | RAD_ITS ---
STUDY: X-RAY CHEST REASON FOR EXAM: Male, 23 years old. Vomiting x3 days TECHNIQUE: Single AP portable view of the chest. COMPARISON: 02/01/2016 FINDINGS: Lungs are mildly hypoinflated. Lungs are clear. There is no demonstrated pleural abnormality. Normal size heart. Normal mediastinum and munira. Normal visualized pulmonary arteries. Normal visualized aortic arch and descending thoracic aorta. Normal visualized thoracic spine. Normal visualized ribs, clavicles, and shoulders. There is no demonstrated abnormality of the visualized soft tissue structures of the upper abdomen. RAD/Chest 1 View (Portable) IMPRESSION: No acute cardiopulmonary disease Electronically Signed: Teodoro Bolivar DO at 20:05 EST Tel , Service support ,
[2018-09-12] MEDS: Ipratropium/Albuterol Sulfate 3 ML AMPUL.NEB INHALATION (19:34)
[2018-09-12] MEDS: 0.9% Normal Saline 1,000 ML 1000 ML IV (19:56)
[2018-09-12] MEDS: Ondansetron 4 MG/2 ML Vial IV (19:57)
[2018-09-12 20:02] LABS: Bedside Glucose 103 mg/dL (70-110)
[2018-09-12 20:07] LABS: Absolute Lymphocyte Count 1.06 X10^3/ul (0.83-4.51); Absolute Neutrophil Count 6.1 X10^3/uL (2.0-7.7); Basophil# 0.02 X10^3/uL; Basophil% 0.3 % (0-1); Hematocrit 46.4 % (40-54); Hemoglobin 15.7 g/dl (13.0-16.5); Lymphocyte # 1.06 X10^3/ul (4.0); Lymphocyte % 13.5 % (19-41); Mean Corp Hgb Conc 33.8 g/gl (32-36); Mean Corpuscular Hgb 30.1 pg (27.0-32.0); Mean Corpuscular Volume 88.9 fL (80-94); Mean Platelet Vol. 9.8 fl (6.2-12.0); Monocyte# 0.63 X10^3/uL; Neutrophil # 6.12 X10^3/uL (2.7-7.7); Neutrophil % 78.1 % (47-70); POSITIVE COUNT NO; POSITIVE DIFFERENTIAL NO; POSITIVE MORPHOLOGY NO; Platelet Count 170 K/mm3 (150-450); RBC Distribution Width CV 13.2 % (11.6-14.6); RBC Distribution Width SD 43.4 fl (35.1-43.9); Red Blood Count 5.22 M/mm3 (4.6-6.2); White Blood Count 7.8 K/mm3 (4.4-11.0)
[2018-09-12 20:23] LABS: AST(SGOT) 32 U/L (15-37); Alanine Aminotransfer ALT/SGPT 79 U/L (16-61); Alkaline Phosphatase 82 U/L (45-117); Anion Gap 11 (5-15); BUN 16 mg/dL (7-18); BUN/Creat Ratio 14.7 RATIO (10-20); Bilirubin, Direct 0.16 mg/dL (0.00-0.30); Calcium,Total 8.8 mg/dL (8.5-10.1); Chloride 104 mmol/L (98-107); Creatinine, Serum 1.09 mg/dL (0.70-1.30); EST Glomerular Filtration Rate 88 mL/min (>60); Est Glom Filt Rate - Afr Amer 106 mL/min (>60); Glucose 100 mg/dL (74-106); Lipase 93 U/L (73-393); Potassium 3.6 mmol/L (3.5-5.1); Sodium Level 139 mmol/L (136-145)
--- NOTE | 2018-09-12 21:02 | CT_ITS ---
STUDY: CTA CHEST REASON FOR EXAM: Male, 23 years old. Vomiting. Nausea. RADIATION DOSAGE (If Supplied By Facility): CTDIvol = ( 15.06 ) mGy, DLP = ( 618.54 ) mGycm TECHNIQUE: The examination was performed with the intravenous administration of 100ML ml of Isovue 370 contrast material. Post-processing of the angiographic images was performed, with multiplanar reformation and 3D reconstruction. Individualized dose optimization techniques were used for this CT. COMPARISON: None. FINDINGS: Motion artifact degrades anatomic detail. There are ill-defined nodular opacities within the right upper lobe. There is suboptimal enhancement of the main pulmonary artery and right and left pulmonary arteries. There is suboptimal enhancement of the bilateral peripheral pulmonary arteries. There is an indeterminate filling defect within a subsegmental pulmonary artery within the right lower lobe (image 97 series 2). Normal thoracic aorta and visualized great vessels. There is no demonstrated aortic dissection. Normal heart and pericardium. Normal mediastinum. Normal hilar regions. Normal visualized trachea and bronchi. There are prominent right axillary lymph nodes. Normal osseous structures. The limited images of the upper abdomen demonstrate diffusely low in attenuation liver consistent with fatty infiltration. CT/CTA Chest W/WO Contrast IMPRESSION: Indeterminate filling defect within a subsegmental pulmonary artery within the right lower lobe which may be artifactual in nature however cannot exclude a pulmonary embolus. Ill-defined nodular opacities within the right upper lobe may be secondary to an infectious process. Fatty infiltration of the liver. Electronically Signed: Marii Foote MD at 21:59 EST Tel , Service support ,
[2018-09-12] MEDS: 0.9% Normal Saline 1,000 ML 250 ML IV (21:07)
--- NOTE | 2018-09-12 21:29 | ED.VISSUMM ---
- ER Visit Summary Date of Service: 09/12/18 Chief Complaint: Nausea and vomiting History of Present Illness: The patient is a 23 M with nausea and vomiting for the past 3 days. He reports mild, nonproductive cough. He has occasional posttussive emesis. He is reported mild symptoms of fever. He is still urinating but states his urine output has decreased. He denies chest pain or shortness of breath. He denies abdominal pain. Past history is significant for ADHD, anxiety, depression, prediabetes. He follows with Dr. Domingo. Physical Examination: Blood pressure is 118/75, temperature 98.4, heart rate 141, respiratory rate 18, pulse ox 90% on room air. Patient is lying in bed. He appears ill but not toxic. He is in no acute distress. Head and neck examination reveals dry mucous membranes. Heart is tachycardic and regular. Lungs sounds with mild right sided inspiratory wheezes. Abdomen is soft and nontender. Hypoactive but present bowel sounds are noted. Test Results: EKG is sinus tach at 136. No acute ischemia. CBC and chemistry studies normal. LFTs normal. Lipase normal. BG T on arrival was 103. Portable chest x-ray shows no acute disease. Urinalysis returns with 50 ketones but no sign of acute infection. Emergency Department Course and Treatment: Patient was given IV fluids along with Zofran for nausea. He is given a DuoNeb treatment. He is currently on 4 L nasal cannula and satting in the low to mid 90s. At the time of my initial examination his oxygen saturation was 88% on room air. CTA of the chest was performed. There is an indeterminate filling defect within a subsegmental pulmonary artery within the right lower lobe which may be artifactual in nature, however radiologist cannot exclude a pulmonary embolus. There is ill-defined nodular opacities in the right upper lobe which may be secondary to infection. On repeat examination, heart rate is still around 120. Respiratory rate is normal at 19. His pulse ox is 91% on 4 L nasal cannula. Lung sounds are slightly diminished throughout but no obvious wheezing or crackles. An additional breathing treatment is performed. D-dimer is added on and is normal at 0.47. At this time I do not have a good explanation for his hypoxia and he does not complain of shortness of breath. He will require admission for further treatment. Treatment Plan: [] Disposition: Admit Impression: 1. Nausea and vomiting, improved 2. Hypoxia This note was generated with [employer] dictation software. It may contain incorrect words, spelling, and punctuation that were not noted in review of the chart prior to signing ED Disposition - Plan for ED Patient: Chief Complaint: Nausea/Vomiting Referrals: Jose Francisco Domingo DO [Primary Care Provider] -
[2018-09-12 22:16] LABS: Bacteria 0 SEEN /hpf (None Seen); Mucous, Urine 0 SEEN /hpf (<or=2+); White Blood Cells 0 SEEN /hpf (0-5)
[2018-09-12] MEDS: Albuterol 2.5 MG/3 ML VIAL.NEB. INHALATION (22:21)
[2018-09-12 22:23] LABS: Color, Urine Yellow (Yellow); Glucose, Dipstick Normal (Normal); Ketone-Dipstick 50 mg/dl (Negative); Leukocyte Esterase-Dipstick Negative /ul (Negative); Nitrite-Dipstick Negative (Negative); Occult Blood-Urine 10 /ul (Negative); Protein-Dipstick 15 mg/dl (Negative); Urine Bilirubin Dipstick Negative (Negative); Urine Clarity Sl. Cloudy (Clear); Urine Urobilinogen 1 mg/dl (Normal); Urine pH 6.5 (5.0 - 8.0)
[2018-09-12 22:25] LABS: D-Dimer Quantitative (DVT/PE) 0.47 FEU/ug/m (0.27-0.49)
[2018-09-12 22:30] LABS: Red Blood Cells-Urine 0-5 SEEN /hpf (0-5); Squamous Epithelial Cells - UA 0-5 SEEN /hpf (0-5)
--- NOTE | 2018-09-12 22:31 | HP.PCM_ITS ---
Problem List (1) Viral illness Status: Suspected (2) Asthma Status: Chronic History of Present Illness Date of Admission: 09/12/18 Chief Complaint: nausea and vomiting The patient is a 23 year old M with a significant history of Asthma;Asperger syndrome; ADHD; depression; anxiety; Somnambulism; and prediabetes who presented because of 3 days of progressively worsening nausea and vomiting. Also patient complains of generalized achy abdominal pain that he rated as 9 on a scale of 1-10. His abdominal pain was present on the day before his admission. He reported that on the day of admission he did not have abdominal pain. Further he reports some wheezes at home. He reports posttussive emesis. He denies any constipation or diarrhea. He denies eating any food out of the ordinary. He reports shortness of breath with exertion. The Emergency department doctor reported patient had heart rates of 140 and he had some wheezing in his right lung. Also emergency department doctor reported that patient's oxygen saturation was 88% on room air. Patient's x-ray was unremarkable. Because of concern for PE emergency department doctor obtained a CTPA. CTPA showed indeterminate filling defect within subsegmental pulmonary artery within the right lower lobe which may be artifactual in nature however cannot exclude pulmonary embolus.; Also there was an ill-defined nodular opacities within the right upper lobe which may be secondary to an infectious process; and there was a fatty infiltration of the liver. Past Medical History Past Medical History (Chronic Problems): Chronic Problems (Last Updated 09/12/18 @ 23:17 by Shayan Ash MD) Asthma (Chronic) Medical History: Medical History (Last Updated 09/12/18 @ 23:17 by Shayan Ash MD) Aspergers' syndrome F84.5 Prediabetes R73.03 Allergies amoxicillin trihydrate [From Augmentin] Adverse Reaction (Verified 09/12/18 18:24) Rash potassium clavulanate [From Augmentin] Adverse Reaction (Verified 09/12/18 18:24) Rash Home Medications: Ambulatory Orders Medication Instructions Recorded Aripiprazole 10 mg PO DAILY 08/23/17 Olanzapine [Zyprexa] 5 mg PO BID 08/23/17 Surgical History: no surgical history Psychiatric History: Anxiety, Depression Lives: With Family Smoking Status: Current every day smoker Tobacco Use: Cigarettes Alcohol: Occasional - *Family History Maternal History Items: Diabetes Review of Systems Constitutional: Denies: Chills, Fever, Weight Change HEENT: Denies: Head Aches, Sinus Congestion, Sinus Drainage Cardiovascular: Denies: Chest Pain, Palpitations Respiratory: Reports: Cough, Shortness of breath upon exertion, Sputum production, Wheezing. Denies: Shortness of breath at rest Gastrointestinal: Reports: Abdominal Pain - Not present on the day of admission but was presents the day before his admission., Nausea, Vomiting Genitourinary: Denies: Dysuria Musculoskeletal: Denies: Joint Pain, Joint Tenderness Skin: Denies: Rash, Wounds Neurological: Denies: Numbness, Tingling, Focal weakness Psychiatric: Reports: Anxiety. Denies: Depression, Homicidal Ideations, Suicidal Ideations Hematologic/ Lymphatic: Denies: Easy Bruising, Easy Bleeding VTE Information - Inpt Only VTE Present on Admission: No VTE Mechan Device Prophylaxis: None VTE Pharm Prophylaxis ordered?: Yes Patient Problems: Active and Suspected Problems (Last Updated 09/12/18 @ 23:17 by Shayan Ash MD) Viral illness (Suspected) - Physical Exam General: Alert, Oriented x3, Cooperative HEENT: Atraumatic, PERRLA, EOMI, Normocephalic Neck: Supple, No JVD, Negative Carotid Bruits Lungs: Diminished, Tachypneic, Using Accessory Muscles Cardiovascular: No murmurs, Tachycardic Abdomen: Bowel Sounds Present, Soft, Non Tender Extremities: No edema, Capillary Refill Less than 3 Seconds Skin: No rashes, No breakdown Musculoskeletal: No Tenderness to Palpation of Joints or Extremities Neurological: Cranial nerves II-XII grossly intact Psych/Mental Status: Normal Affect, Appropriate Vital Signs Temp Pulse Resp BP Pulse Ox 98.4 F 124 H 22 H 110/62 93 09/12/18 18:22 09/12/18 22:21 09/12/18 22:21 09/12/18 20:22 09/12/18 22:24 Oxygen Flow Rate (L/min) 3 Oxygen Delivery Method Nasal Cannula Weight: 110.223 kg Body Mass Index (BMI) 30.4 Finger Stick Blood Glucose 103 Laboratory Tests Past 24 Hrs 09/12/18 09/12/18 09/12/18 19:57 19:57 19:57 WBC 7.8 RBC 5.22 Hgb 15.7 Hct 46.4 MCV 88.9 MCH 30.1 MCHC 33.8 RDW 13.2 RDW Differential 43.4 Plt Count 170 MPV 9.8 Immature Gran % (Auto) 0.100 Neut % (Auto) 78.1 H Lymph % (Auto) 13.5 L [place] % (Auto) 8.0 Eos % (Auto) 0.0 Baso % (Auto) 0.3 Absolute Neuts (auto) 6.1 Absolute Lymphs (auto) 1.06 Total Counted Not Reportable D-Dimer Quant (PE/DVT) 0.47 Sodium 139 Potassium 3.6 Chloride 104 Carbon Dioxide 24.0 Anion Gap 11 BUN 16 Creatinine 1.09 Estim Creat Clear Calc 124.90 Est GFR (MDRD) Af Amer 106 Est GFR (MDRD) Non-Af 88 BUN/Creatinine Ratio 14.7 Glucose 100 Calcium 8.8 Total Bilirubin 0.50 Direct Bilirubin 0.16 AST 32 ALT 79 H Alkaline Phosphatase 82 Total Protein 8.0 Albumin 4.0 Globulin 4.0 Lipase 93 Urine Color Urine Clarity Urine pH Ur Specific [place] Urine Protein Urine Glucose (UA) Urine Ketones Urine Occult Blood Urine Nitrite Urine Bilirubin Urine Urobilinogen Ur Leukocyte Esterase Urine RBC Urine WBC Ur Squamous Epith Cells Urine Bacteria Urine Mucus 09/12/18 22:00 WBC RBC Hgb Hct MCV MCH MCHC RDW RDW Differential Plt Count MPV Immature Gran % (Auto) Neut % (Auto) Lymph % (Auto) [place] % (Auto) Eos % (Auto) Baso % (Auto) Absolute Neuts (auto) Absolute Lymphs (auto) Total Counted D-Dimer Quant (PE/DVT) Sodium Potassium Chloride Carbon Dioxide Anion Gap BUN Creatinine Estim Creat Clear Calc Est GFR (MDRD) Af Amer Est GFR (MDRD) Non-Af BUN/Creatinine Ratio Glucose Calcium Total Bilirubin Direct Bilirubin AST ALT Alkaline Phosphatase Total Protein Albumin Globulin Lipase Urine Color Yellow Urine Clarity Sl. Cloudy Urine pH 6.5 Ur Specific [place] 1.010 Urine Protein 15 H Urine Glucose (UA) Normal Urine Ketones 50 H Urine Occult Blood 10 H Urine Nitrite Negative Urine Bilirubin Negative Urine Urobilinogen 1 H Ur Leukocyte Esterase Negative Urine RBC 0-5 SEEN Urine WBC 0 SEEN Ur Squamous Epith Cells 0-5 SEEN Urine Bacteria 0 SEEN Urine Mucus 0 SEEN POC Glucose 09/12/18 19:53 POC Glucose 103 Assessment/Plan The patient is a 23 year old M with a significant history of Asthma;Asperger syndrome; ADHD; depression; anxiety; Somnambulism; and prediabetes who presented because of 3 days of progressively worsening nausea and vomiting; abdominal pain; and found to have a tachypnea; tachycardia; hypoxia; and found to have indeterminate filling defect on subsegmental pulmonary arteries in the right lobe and also with ill-defined nodular opacities within the right upper lobe that may be infectious. Acute hypoxemic respiratory failure My strong suspicion is that patient has a viral illness. Will obtain influenza test and comprehensive respiratory pathogen panel. His d-dimer obtained after questionable CTPA was low. And more so this filling defect is seen in subsegmental arteries in the right lower lobe. Will not treat for PE at this time. If patient continues to be hypoxic consider discussing this further with pulmonology or start on treatment dose of anticoagulation; and consider Echo. Will place patient on MedSurg with telemetry monitoring. Meanwhile we will schedule patient on DuoNeb and as needed albuterol. We will give patient prednisone. Mucinex ordered. Incentive spirometer and acapella ordered. Oxygen to maintain saturation more than 90%. Maintenance normal saline infusion ordered. IV Zofran as needed for nausea or vomiting. We will start patient on a clear liquid diet. Probable aspiration pneumonia There is radiographic evidence of ill-defined nodular opacities within the right upper lobe that may be secondary to an infectious process. Because patient complained of vomiting we will start patient on antibiotics. Unfortunately patient is allergic to amoxicillin. So Unasyn was not ordered. We will start patient on clindamycin. Asthma Exacerbation. Emergency department doctor reported wheezing. At my examination patient was severely diminished. Patient has a history of asthma. It could be the patient has viral illness which is aggravating his asthma. Scheduled DuoNeb and as needed albuterol as above. Steroid ordered. Anxiety/depression/ADHD Aripiprazole and Olanzapine Fatty Infiltration of Liver Likely Fatty Liver Disease. Patient to follow-up outpatient and consider diet and exercise.. DVT prophylaxis Subcutaneous Lovenox
[2018-09-13] VITALS (23 sets, daily range): BP systolic 88–134; BP diastolic 25–76; PULSE 87–141; RESP 16–28; TEMP 36.7–37.3; O2SAT 93–98
[2018-09-13] MEDS: 0.9% Normal Saline 1,000 ML 75 ML IV ×2 (00:56→15:24)
[2018-09-13] MEDS: Enoxaparin 40 MG/0.4 ML Syringe SC ×2 (00:58→08:19)
[2018-09-13] MEDS: predniSONE 20 MG Tablet 40 MG PO ×2 (01:14→08:15)
--- NOTE | 2018-09-13 01:18 | NURSING ---
Called pharmacist Marc to make sure ok to give rocephin with pcn allergy, he states ok, Dr. Ash aware and ok'd.
[2018-09-13 01:30] LABS: Lactic Acid 0.8 mmol/L (0.4-2.0)
[2018-09-13] MEDS: Ceftriaxone 1 GM/50 ML BAG IV ×2 (02:54→22:09)
[2018-09-13] MEDS: Ipratropium/Albuterol Sulfate 3 ML AMPUL.NEB INHALATION ×4 (03:44→15:03)
[2018-09-13 06:14] LABS: Anion Gap 12 (5-15); BUN 12 mg/dL (7-18); Calcium,Total 8.7 mg/dL (8.5-10.1); Chloride 106 mmol/L (98-107); Creatinine, Serum 0.92 mg/dL (0.70-1.30); EST Glomerular Filtration Rate 106 mL/min (>60); Est Glom Filt Rate - Afr Amer 129 mL/min (>60); Estimated Creatinine Clearance 147.98 ml/min; Glucose 145 mg/dL (74-106); Potassium 3.7 mmol/L (3.5-5.1); Sodium Level 138 mmol/L (136-145)
[2018-09-13 06:29] LABS: Absolute Lymphocyte Count 0.51 X10^3/ul (0.83-4.51); Absolute Neutrophil Count 6.6 X10^3/uL (2.0-7.7); Basophil# 0.02 X10^3/uL; Basophil% 0.3 % (0-1); Differential Indicated SCAN CRITERIA MET; Hematocrit 46.1 % (40-54); Lymphocyte # 0.51 X10^3/ul (4.0); Lymphocyte % 6.9 % (19-41); Mean Corp Hgb Conc 32.5 g/gl (32-36); Mean Corpuscular Hgb 30.1 pg (27.0-32.0); Mean Corpuscular Volume 92.4 fL (80-94); Monocyte# 0.28 X10^3/uL; Monocyte% 3.8 % (0-10); Neutrophil # 6.61 X10^3/uL (2.7-7.7); Neutrophil % 88.9 % (47-70); POSITIVE COUNT NO; POSITIVE DIFFERENTIAL YES; POSITIVE MORPHOLOGY NO; Platelet Count 148 K/mm3 (150-450); RBC Distribution Width CV 13.8 % (11.6-14.6); RBC Distribution Width SD 46.6 fl (35.1-43.9); Red Blood Count 4.99 M/mm3 (4.6-6.2); White Blood Count 7.4 K/mm3 (4.4-11.0)
--- NOTE | 2018-09-13 07:49 | PCM.PROGNOTE ---
Patient Problems: Active and Suspected Problems (Last Updated 09/12/18 @ 23:17 by Shayan Ash MD) Aspiration pneumonia (Suspected) Sepsis (Acute) Subjective: Chief complaint: Follow-up after admission for probable aspiration versus community-acquired pneumonia complicated by sepsis and acute hypoxic respiratory failure. Patient seen and examined. No acute events overnight. He reported improvement of his shortness of breath but remains on oxygen at 4 L. Reported cough without sputum production. Denied chest pain or palpitation. This morning, temperature was 99.2, blood pressure and heart rate are stable, pulse ox is 94% on 4 L. Patient never been on oxygen at home. - Physical Exam General: Alert, Oriented x3, Cooperative, No apparent distress HEENT: Atraumatic, PERRLA, EOMI, Normocephalic Oral: Moist Mucosa, No Gingival or Mucosal Lesions/ Ulcerations Neck: Supple, No JVD, Negative Carotid Bruits, Trachea Midline, Thyroid Normal Size and Texture Lungs: Clear to auscultation, No wheeze, No rales, Diminished, Rhonchi - Scattered rhonchi. Cardiovascular: Regular rate, Regular Rhythm, Normal S1, Normal S2, No murmurs, PMI Normal Abdomen: Bowel Sounds Present, Soft, Non Tender, Non-Distended, No Hepato-splenomegaly Extremities: No clubbing, No cyanosis, No edema Skin: No rashes, No breakdown Lymphatic: No Cervical, Supraclavicular, or Inguinal Adenopathy Neurological: Cranial nerves II-XII grossly intact, Motor Exam 5/5 strength throughout Psych/Mental Status: Normal Affect, Appropriate, Alert and oriented to time, place, person, mood and affect Vital Signs Temp Pulse Resp BP Pulse Ox 99.2 F H 101 H 16 105/68 94 09/13/18 06:05 09/13/18 07:00 09/13/18 07:00 09/13/18 06:05 09/13/18 07:00 Oxygen Flow Rate (L/min) 4 Oxygen Delivery Method Nasal Cannula Weight: 235 lb 14.314 oz Body Mass Index (BMI) 29.3 Finger Stick Blood Glucose 103 Intake and Output for Last 24 Hours 09/11/18 09/12/18 09/13/18 23:59 23:59 23:59 Intake Total 1284 / 1284 Output Total 300 / 300 Balance 984 / 984 Microbiology Past 72 Hours 09/13/18 01:20 Influenza Types A,B Direct FA (VALE) - Final Mucosa - Nose 09/13/18 01:30 Streptococcus pneumoniae Antigen (M - Final Urine, Clean Catch 09/13/18 01:30 Legionella Antigen - Final Urine, Clean Catch Laboratory Tests Past 24 Hrs 09/12/18 09/12/18 09/12/18 19:57 19:57 19:57 WBC 7.8 RBC 5.22 Hgb 15.7 Hct 46.4 MCV 88.9 MCH 30.1 MCHC 33.8 RDW 13.2 RDW Differential 43.4 Plt Count 170 MPV 9.8 Immature Gran % (Auto) 0.100 Neut % (Auto) 78.1 H Lymph % (Auto) 13.5 L Glenn % (Auto) 8.0 Eos % (Auto) 0.0 Baso % (Auto) 0.3 Absolute Neuts (auto) 6.1 Absolute Lymphs (auto) 1.06 Total Counted Not Reportable Differential Comment D-Dimer Quant (PE/DVT) 0.47 Sodium 139 Potassium 3.6 Chloride 104 Carbon Dioxide 24.0 Anion Gap 11 BUN 16 Creatinine 1.09 Estim Creat Clear Calc 124.90 Est GFR (MDRD) Af Amer 106 Est GFR (MDRD) Non-Af 88 BUN/Creatinine Ratio 14.7 Glucose 100 Lactic Acid Calcium 8.8 Total Bilirubin 0.50 Direct Bilirubin 0.16 AST 32 ALT 79 H Alkaline Phosphatase 82 Total Protein 8.0 Albumin 4.0 Globulin 4.0 Lipase 93 Urine Color Urine Clarity Urine pH Ur Specific [place] Urine Protein Urine Glucose (UA) Urine Ketones Urine Occult Blood Urine Nitrite Urine Bilirubin Urine Urobilinogen Ur Leukocyte Esterase Urine RBC Urine WBC Ur Squamous Epith Cells Urine Bacteria Urine Mucus Mycoplasma pneumon IgG Mycoplasma pneumon IgM 09/12/18 09/13/18 09/13/18 22:00 00:55 00:55 WBC RBC Hgb Hct MCV MCH MCHC RDW RDW Differential Plt Count MPV Immature Gran % (Auto) Neut % (Auto) Lymph % (Auto) Glenn % (Auto) Eos % (Auto) Baso % (Auto) Absolute Neuts (auto) Absolute Lymphs (auto) Total Counted Differential Comment D-Dimer Quant (PE/DVT) Sodium Potassium Chloride Carbon Dioxide Anion Gap BUN Creatinine Estim Creat Clear Calc Est GFR (MDRD) Af Amer Est GFR (MDRD) Non-Af BUN/Creatinine Ratio Glucose Lactic Acid 0.8 Calcium Total Bilirubin Direct Bilirubin AST ALT Alkaline Phosphatase Total Protein Albumin Globulin Lipase Urine Color Yellow Urine Clarity Sl. Cloudy Urine pH 6.5 Ur Specific [place] 1.010 Urine Protein 15 H Urine Glucose (UA) Normal Urine Ketones 50 H Urine Occult Blood 10 H Urine Nitrite Negative Urine Bilirubin Negative Urine Urobilinogen 1 H Ur Leukocyte Esterase Negative Urine RBC 0-5 SEEN Urine WBC 0 SEEN Ur Squamous Epith Cells 0-5 SEEN Urine Bacteria 0 SEEN Urine Mucus 0 SEEN Mycoplasma pneumon IgG Pending Mycoplasma pneumon IgM Pending 09/13/18 09/13/18 05:32 05:32 WBC 7.4 RBC 4.99 Hgb 15.0 Hct 46.1 MCV 92.4 MCH 30.1 MCHC 32.5 RDW 13.8 RDW Differential 46.6 H Plt Count 148 L MPV 10.0 Immature Gran % (Auto) 0.100 Neut % (Auto) 88.9 H Lymph % (Auto) 6.9 L Glenn % (Auto) 3.8 Eos % (Auto) 0.0 Baso % (Auto) 0.3 Absolute Neuts (auto) 6.6 Absolute Lymphs (auto) 0.51 L Total Counted Not Reportable Differential Comment D-Dimer Quant (PE/DVT) Sodium 138 Potassium 3.7 Chloride 106 Carbon Dioxide 20.0 L Anion Gap 12 BUN 12 Creatinine 0.92 Estim Creat Clear Calc 147.98 Est GFR (MDRD) Af Amer 129 Est GFR (MDRD) Non-Af 106 BUN/Creatinine Ratio 13.0 Glucose 145 H Lactic Acid Calcium 8.7 Total Bilirubin Direct Bilirubin AST ALT Alkaline Phosphatase Total Protein Albumin Globulin Lipase Urine Color Urine Clarity Urine pH Ur Specific [place] Urine Protein Urine Glucose (UA) Urine Ketones Urine Occult Blood Urine Nitrite Urine Bilirubin Urine Urobilinogen Ur Leukocyte Esterase Urine RBC Urine WBC Ur Squamous Epith Cells Urine Bacteria Urine Mucus Mycoplasma pneumon IgG Mycoplasma pneumon IgM POC Glucose 09/12/18 19:53 POC Glucose 103 Clinical Impression(s) from Imaging Studies Chest X-Ray 09/12/18 19:22 IMPRESSION: No acute cardiopulmonary disease Electronically Signed: Teodoro Bolivar DO at 20:05 EST Tel , Service support , Chest CTA 09/12/18 21:02 IMPRESSION: Indeterminate filling defect within a subsegmental pulmonary artery within the right lower lobe which may be artifactual in nature however cannot exclude a pulmonary embolus. Ill-defined nodular opacities within the right upper lobe may be secondary to an infectious process. Fatty infiltration of the liver. Electronically Signed: Marii Foote MD at 21:59 EST Tel , Service support , Medical Necessity - Tobacco Use Smoking Status: Current every day smoker Tobacco Use: Cigarettes Assessment/Plan All Active Problems (Last Updated 09/12/18 @ 23:17 by Shayan Ash MD) Sepsis (Acute) This is a 23 years old male patient presented to the emergency room because of nausea and vomiting and he was found to have sepsis secondary to suspected aspiration versus committee acquired pneumonia and probable upper respiratory tract infection secondary to human Metapneumo virus and complicated by acute hypoxic respiratory failure. #1 probable aspiration versus community-acquired pneumonia/sepsis: He is on IV Rocephin, Zithromax and IV Flagyl, on oral prednisone. He is on bronchodilators he is still tachycardic, blood pressure stable, pulse ox is 92% on 3 L. Chest x-ray showed no acute findings. CTA chest revealed right upper lobe nodular opacities, indeterminate filling defects within the subsegmental pulmonary artery within the right lower lobe which may be an artifact but cannot exclude PE according to official report. Pneumococcal and Legionella antigen were negative. Respiratory panel for viruses was positive for Human metapneumo virus. Plan: Continue same treatment, will consider to repeat CTA chest to rule out PE if patient remains tachycardic and hypoxic. #2 acute hypoxic respiratory failure: Secondary to above. Patient reported improvement of his symptoms. Remain on oxygen at 2-4 L. Remained tachycardic, blood pressure stable. Plan as above, continue current treatment, consider repeat CTA chest. #3 depression/anxiety/ADHD: Continue Zyprexa and Abilify. #4 DVT prophylaxis: Subcu Lovenox. This note was generated with ePatientFinderation software. It may contain incorrect words, spelling, and punctuation that were not noted in checking the note before signing. Code Visit Inpatient E&M: 96845 Subs Hosp L2
[2018-09-13] MEDS: guaiFENesin 1,200 MG Tablet 1200 MG PO ×2 (08:15→21:02)
[2018-09-13] MEDS: ARIPiprazole 10 MG Tablet PO (08:16)
[2018-09-13] MEDS: OLANZapine 5 MG/TAB TAB.RAPDIS PO ×2 (08:16→21:02)
--- NOTE | 2018-09-13 15:14 | CHAPLAIN ---
patient is sleeping; two visitors are in room at this time and report that it is better to come back for visit with pt later
[2018-09-13] MEDS: Ondansetron 4 MG/2 ML Vial IV ×2 (15:23→22:54)
[2018-09-13] MEDS: 0.9% NaCl Peripheral Flush Adult/Peds IV ×2 (15:24→22:55)
--- NOTE | 2018-09-13 16:24 | NURSING ---
spoke with Patricia, updated Dr. Parkinson would like a re-read of pt CT.
[2018-09-14] VITALS (22 sets, daily range): BP systolic 95–129; BP diastolic 50–72; PULSE 85–139; RESP 18–32; TEMP 36.8–38.3; O2SAT 2–97
[2018-09-14] MEDS: 0.9% NaCl Peripheral Flush Adult/Peds IV (00:54)
[2018-09-14] MEDS: proMETHazine 25 MG/ML Syringe 12.5 MG IV (00:54)
[2018-09-14] MEDS: LORazepam 2 MG/ML Syringe 1 MG IV (01:55)
[2018-09-14] MEDS: 0.9% Normal Saline 1,000 ML 75 ML IV (05:40)
[2018-09-14] MEDS: Ipratropium/Albuterol Sulfate 3 ML AMPUL.NEB INHALATION ×5 (07:13→23:00)
--- NOTE | 2018-09-14 08:03 | PCM.PROGNOTE ---
Patient Problems: Active and Suspected Problems (Last Updated 09/12/18 @ 23:17 by Shayan Ash MD) Aspiration pneumonia (Suspected) Sepsis (Acute) Subjective: Chief complaint: Follow-up after admission for probable aspiration versus community-acquired pneumonia complicated by sepsis and acute hypoxic respiratory failure. Patient seen and examined. No acute events overnight. He remained short of breath objectively although patient himself denies any shortness of breath. He is still having a dry cough. He remains on oxygen at 3-4 L, remains tachycardic. He is afebrile, heart rate has been around 110-120, blood pressure stable, pulse ox is 95% on 4 L. - Physical Exam General: Alert, Oriented x3, Cooperative, - - Moderately short of breath. HEENT: Atraumatic, PERRLA, EOMI, Normocephalic Oral: Moist Mucosa, No Gingival or Mucosal Lesions/ Ulcerations Neck: Supple, No JVD, Negative Carotid Bruits, Trachea Midline, Thyroid Normal Size and Texture Lungs: Clear to auscultation, No rhonchi, No wheeze, No rales, Diminished Cardiovascular: Regular rate, Regular Rhythm, Normal S1, Normal S2, No murmurs, PMI Normal, Tachycardic Abdomen: Bowel Sounds Present, Soft, Non Tender, Non-Distended, No Hepato-splenomegaly Extremities: No clubbing, No cyanosis, No edema Skin: No rashes, No breakdown Lymphatic: No Cervical, Supraclavicular, or Inguinal Adenopathy Neurological: Cranial nerves II-XII grossly intact, Neuro grossly intact Psych/Mental Status: Normal Affect, Appropriate Vital Signs Temp Pulse Resp BP Pulse Ox 98.3 F 117 H 18 119/72 95 09/14/18 01:59 09/14/18 04:14 09/14/18 01:59 09/14/18 01:59 09/14/18 01:59 Oxygen Flow Rate (L/min) 3 Oxygen Delivery Method Nasal Cannula Weight: 235 lb 14.314 oz Body Mass Index (BMI) 29.3 Finger Stick Blood Glucose 103 Intake and Output for Last 24 Hours 09/12/18 09/13/18 09/14/18 23:59 23:59 23:59 Intake Total 3736 / 3736 549 / 549 Output Total 800 / 800 1100 / 1100 Balance 2936 / 2936 -551 / -551 Microbiology Past 72 Hours 09/13/18 01:20 Respiratory Panel (PCR) - Final Mucosa - Nose Human [place] 09/13/18 01:20 Influenza Types A,B Direct FA (VALE) - Final Mucosa - Nose 09/13/18 01:30 Streptococcus pneumoniae Antigen (M - Final Urine, Clean Catch 09/13/18 01:30 Legionella Antigen - Final Urine, Clean Catch Medical Necessity - Tobacco Use Smoking Status: Current every day smoker Tobacco Use: Cigarettes Assessment/Plan All Active Problems (Last Updated 09/12/18 @ 23:17 by Shayan Ash MD) Sepsis (Acute) This is a 23 years old male patient presented to the emergency room because of nausea and vomiting and he was found to have sepsis secondary to suspected aspiration versus committee acquired pneumonia and probable upper respiratory tract infection secondary to human Metapneumo virus and complicated by acute hypoxic respiratory failure. #1 probable aspiration versus community-acquired pneumonia/sepsis: Remained on IV Rocephin, Zithromax and IV Flagyl, on oral prednisone. He remains hypoxic, tachypneic, requiring up to 4 L of oxygen and he is tachycardic. Chest x-ray showed no acute findings. CTA chest revealed right upper lobe nodular opacities, indeterminate filling defects within the subsegmental pulmonary artery within the right lower lobe which may be an artifact but cannot exclude PE according to official report. I requested a repeat reading on the CTA of the chest and came back with the most same findings, PE again, PE ruled out. Pneumococcal and Legionella antigen were negative. Respiratory panel for viruses was positive for Human metapneumo virus. I will discuss with the radiologist to either repeat CTA chest or do ventilation/perfusion lung scan to rule out pulmonary embolism, continue same treatment for now. #2 acute hypoxic respiratory failure: Secondary to above. Again, pulmonary embolism cannot be ruled out. Patient remains dyspneic, tachypneic and tachycardic, requiring up to 4 L of oxygen. Plan as above, continue current treatment, consider repeat CTA chest versus ventilation/perfusion lung scan. #3 depression/anxiety/ADHD: Continue Zyprexa and Abilify. #4 DVT prophylaxis: Subcu Lovenox. This note was generated with Bitium dictation software. It may contain incorrect words, spelling, and punctuation that were not noted in checking the note before signing. Code Visit Inpatient E&M: 74748 Subs Hosp L2
--- NOTE | 2018-09-14 08:06 | EKG12_ITS ---
Test Reason : TACHY Blood Pressure : / mmHG Vent. Rate : 110 BPM Atrial Rate : 110 BPM P-R Int : 134 ms QRS Dur : 082 ms QT Int : 296 ms P-R-T Axes : 043 026 037 degrees QTc Int : 400 ms Sinus tachycardia Otherwise normal ECG Confirmed by CARLOS VASQUEZ, JOAQUÍN ([id number]), newspaper or periodical editor MARLEY ALAMO ([id number]) on 09/23/2018 4:18:27 PM Referred By: ALBERTO Confirmed By:JOAQUÍN GONZALEZ MD
[2018-09-14] MEDS: OLANZapine 5 MG/TAB TAB.RAPDIS PO ×2 (08:42→21:08)
[2018-09-14] MEDS: Enoxaparin 40 MG/0.4 ML Syringe SC (08:42)
[2018-09-14] MEDS: ARIPiprazole 10 MG Tablet PO (08:42)
[2018-09-14] MEDS: predniSONE 20 MG Tablet 40 MG PO (08:42)
[2018-09-14] MEDS: guaiFENesin 1,200 MG Tablet 1200 MG PO ×2 (08:42→21:08)
[2018-09-14 09:11] LABS: Thyroid Stim Hormone (TSH) 0.54 uIU/mL (0.358-3.74)
[2018-09-14 09:52] LABS: Lactic Acid 1.5 mmol/L (0.4-2.0)
[2018-09-14] MEDS: Acetaminophen 325 MG Tablet 650 MG PO (10:38)
--- NOTE | 2018-09-14 10:42 | CT_ITS ---
STUDY: CTA CHEST REASON FOR EXAM: Male, 23 years old. Hypoxia. Shortness of breath. RADIATION DOSAGE (If Supplied By Facility): CTDIvol = ( 21.75 ) mGy, DLP = ( 545.64 ) mGycm TECHNIQUE: The examination was performed with the intravenous administration of 100ml ml of Isovue 370 contrast material. Post-processing of the angiographic images was performed, with multiplanar reformation and 3D reconstruction. Individualized dose optimization techniques were used for this CT. COMPARISON: Comparison is made with prior study dated 2018. FINDINGS: Once again, motion artifact degrades the anatomical detail. Normal enhancement of the main pulmonary artery and right and left pulmonary arteries. Normal enhancement of the bilateral peripheral pulmonary arteries. There is no demonstrated pulmonary embolism. Normal thoracic aorta and visualized great vessels. There is no demonstrated aortic dissection. Normal heart and pericardium. Normal mediastinum. Normal hilar regions. Normal visualized trachea and bronchi. The lungs are well expanded. Since prior study, there has been a progression of the patchy infiltrates worse in the upper lobes with areas of groundglass appearance. There is also evidence of a patchy infiltrates in the right lower lobe with increased markings in the left lower lobe. Normal pleura. Normal chest wall structures. Normal osseous structures. Normal visualized upper abdomen. CT/CTA Chest W/WO Contrast IMPRESSION: No definite pulmonary embolism is seen. There has been a progression of the patchy bibasilar infiltrates in both lungs. Electronically Signed: Robson Oviedo MD at 11:46 EST Tel [phone], Service support ,
[2018-09-14 12:36] LABS: Blood Gas Specimen Type VEN; O2 Delivery Device Room Air; SITE R Radial; Time Given 1225; VBG BASE EXCESS -2 mmol/L (-1.0-3.5); VBG Bicarbonate 23 mmol/L (22-26); VBG Oxygen Content 24 mmol/L (23-33); VBG PO2 39 mmHg (25-40); VBG SO2 73 % (50-70); VBG pCO2 37.5 mmHg (41-51); VBG pH 7.39 (7.32-7.42)
--- NOTE | 2018-09-14 15:04 | PCM.CONS.GEN ---
Reason for Consult Date of Consultation: 09/14/18 Reason for Consultation: Pneumonia not improving History of Present Illness: The patient is a 23 year old M presented to the emergency department for evaluation of nausea and vomiting that have been ongoing for 3 days. He also had a mild nonproductive cough but denies any shortness of breath. He was found to have a heart rate of 141 bpm, confirmed to be sinus tachycardia with an EKG, other vital signs were stable and he was not hypoxic. Chest x-ray was negative for any acute cardiopulmonary process. He denied any wheezing, chest tightness or chest pain. He has a history of asthma, and only uses an albuterol rescue inhaler very rarely. He does report when he uses it it is used for shortness of breath and wheezing, and it does provide him with some relief of his symptoms. He is not on any maintenance inhalers. He does smoke 2 packs of cigarettes daily. He began smoking at age 17, this puts him at 12 pack years. Today, the patient reports that he is not having any nausea, and tells me that in fact during his 3 days of vomiting he was not having any nausea prior to the onset of sudden vomiting. He denied any diarrhea. He denies any ill contacts, is not aware of anyone at work or at home dealing with the same symptoms. He states that he was working at the [employer] on Thursday when his symptoms started. He had vomiting on Thursday, then again on Thursday and Thursday. He denies any hematemesis. He denies any recent travel. His mom reports that he does often spend time sitting playing games but never sits longer than an hour or so. She states that he often gets up to get drinks and go to the restroom. The mother reports that she has had blood clots in the past, her mother and her grandmother have also had blood clots in the past. Family medical history positive for: Mother: Diabetes type 2 and blood clots, father: Unknown, siblings: Mother reports that brother recently at age 15 secondary to complications after mononucleosis as she reports he had 2 spleens and had backwards organs. Past Medical History Past Medical History (Chronic Problems): Chronic Problems (Last Updated 09/12/18 @ 23:17 by Shayan Ash MD) ADHD (Chronic) Depression (Chronic) Anxiety (Chronic) Medical History: Medical History (Last Updated 09/12/18 @ 23:17 by Shayan Ash MD) Aspergers' syndrome F84.5 Prediabetes R73.03 Allergies amoxicillin trihydrate [From Augmentin] Allergy (Verified 09/14/18 13:21) Rash potassium clavulanate [From Augmentin] Allergy (Verified 09/14/18 13:21) Rash Home Medications: Ambulatory Orders Medication Instructions Recorded Aripiprazole 10 mg PO BID PRN 08/23/17 Olanzapine [Zyprexa] 5 mg PO BID PRN 08/23/17 Surgical History: no surgical history Psychiatric History: Anxiety, Depression Lives: With Family Smoking Status: Current every day smoker Tobacco Use: Cigarettes Alcohol: Occasional - *Family History Maternal History Items: Diabetes, DVT Review of Systems Constitutional: Reports: Fatigue. Denies: Anorexia, Chills, Fever, Night Sweats, Malaise, Weakness Eyes: Denies: Blurred vision, Pain HEENT: Denies: Difficulty Hearing, Difficulty Swallowing, Head Aches Cardiovascular: Denies: Chest Pain, Chest Pressure, Chest Tightness, Palpitations Respiratory: Reports: Cough. Denies: Shortness of Breath, Sputum production, Wheezing Gastrointestinal: Reports: Vomiting. Denies: Abdominal Pain, Diarrhea, Nausea Genitourinary: Denies: Dysuria Neurological: Denies: Change in Speech, Difficulty swallowing Psychiatric: Reports: Anxiety Endocrine: Denies: Change in Body Habitus, Heat/ Cold Intolerance Hematologic/ Lymphatic: Denies: Adenopathy Patient Problems: Active and Suspected Problems (Last Updated 09/12/18 @ 23:17 by Shayan Ash MD) Aspiration pneumonia (Suspected) Sepsis (Acute) Subjective: Denies any shortness of breath, nausea or vomiting currently. Denies any wheezing, chest tightness, chest pain or palpitations. Reports a nonproductive cough. Was previously able to expectorate some sputum that was sent for culture. Objective: Respiratory swab positive for human Metapneumo virus, sputum culture pending. Heart rate has come down from 140s down to 90s. Respiratory rate come down from 28 down to 20, blood pressure stabilized from 95/53 up to 102/62, last oxygen saturation found to be 97% on 4 L, afebrile at this time. - Physical Exam General: Alert, Oriented x3, Cooperative, No apparent distress HEENT: Atraumatic Oral: Moist Mucosa - mallampati 3 Neck: Supple, No JVD, No Nodes, Trachea Midline Lungs: Clear to auscultation, No rhonchi, No wheeze, No rales, Diminished Cardiovascular: Regular rate, Regular Rhythm, Normal S1, Normal S2, No murmurs Abdomen: Bowel Sounds Present, Non Tender, Non-Distended Extremities: No clubbing, No cyanosis, No edema, Capillary Refill Less than 3 Seconds Skin: No rashes Musculoskeletal: No Tenderness to Palpation of Joints or Extremities, No Muscle Wasting Lymphatic: No Cervical, Supraclavicular, or Inguinal Adenopathy Neurological: Cranial nerves II-XII grossly intact, Neuro grossly intact, Motor Exam 5/5 strength throughout Psych/Mental Status: Normal Affect, Appropriate Vital Signs Temp Pulse Resp BP Pulse Ox 98.8 F 91 20 H 102/62 97 09/14/18 13:18 09/14/18 13:18 09/14/18 13:18 09/14/18 13:18 09/14/18 13:18 Oxygen Flow Rate (L/min) 4 Oxygen Delivery Method Nasal Cannula Weight: 235 lb 14.314 oz Body Mass Index (BMI) 29.3 Finger Stick Blood Glucose 103 Intake and Output for Last 24 Hours 09/12/18 09/13/18 09/14/18 23:59 23:59 23:59 Intake Total 3736 / 3736 918 / 918 Output Total 800 / 800 1100 / 1100 Balance 2936 / 2936 -182 / -182 Microbiology Past 72 Hours 09/14/18 05:45 Gram Stain - Final Sputum, Expectorated/Coughed 09/13/18 01:20 Respiratory Panel (PCR) - Final Mucosa - Nose Human [place] 09/13/18 01:20 Influenza Types A,B Direct FA (VALE) - Final Mucosa - Nose 09/13/18 01:30 Streptococcus pneumoniae Antigen (M - Final Urine, Clean Catch 09/13/18 01:30 Legionella Antigen - Final Urine, Clean Catch Laboratory Tests Past 24 Hrs 09/14/18 09/14/18 09/14/18 05:32 09:12 12:32 Specimen Type ANIBAL Sample Site R Radial VBG pH 7.39 VBG pO2 39 VBG O2 Sat (Calc) 73 H VBG O2 Content 24 VBG Base Excess -2 L POC Mix VBG pCO2 Pt Tmp 37.5 L O2 Delivery Device Room Air Blood Gas Notified Whom HOSP Blood Gas Notified Time 1225 Lactic Acid 1.5 TSH 0.54 Assessment/Plan All Active Problems (Last Updated 09/12/18 @ 23:17 by Shayan Ash MD) Sepsis (Acute) RECOMMENDATIONS: 1. Continue albuterol nebulizer every 6 hours as needed while awake 2. Continue antibiotics 3. Wean supplemental oxygen to maintain saturations 89-92% 4. PFTs as an outpatient 5. Walking oximetry prior to discharge 6. Repeat CT of the chest without contrast in 6-8 weeks to evaluate resolution of right lower lobe infiltrate 7. Alpha-1 antitrypsin deficiency screen as an outpatient 8. Follow-up in outpatient clinic 2 weeks post discharge IMPRESSIONS: 1. Acute respiratory failure secondary to human Metapneumo virus and likely aspiration pneumonia Continue supportive measures for viral illness, including submental oxygen to maintain saturations 89-92%, as well as rehydration. Continue antibiotics for believed aspiration pneumonia. Continue Zofran as needed for additional episodes of emesis. Consider repeating CT of the chest to follow infiltrate. Form walking oximetry prior to discharge to evaluate for possible exertional hypoxia. Alpha one screen as an outpatient. 2. Asthma Continue albuterol nebulizer every 6 hours as needed for shortness of breath or wheezing, do not disturb sleep if patient is restful. Consider PFTs on an outpatient basis. 3. Nicotine abuse Encourage smoking cessation. 4. ADHD/Asperger's syndrome/anxiety [place] located exam, plan, care and prognosis. Continue all home medications as rates, defer management to hospitalist.
--- NOTE | 2018-09-14 16:06 | CPS ---
Requested patient to do PEP therapy. Patient explained he just got done doing it.
--- NOTE | 2018-09-14 16:33 | CHAPLAIN ---
Type of Pastoral Visit _x__ Initial Visit ___ Follow-up Visit ___ On-call Visit ___ General Patient Visit ___ Spiritual Assessment ___ Family Conference ___ Bereavement ___ Rapid Response ___ Code Blue ___ Other (describe below) Pastoral Care Referral From _x__ Patient _x__ Family ___ Nurse ___ Physician ___ Office Machines Teacher ___ Manager Intermediate ___ Other (describe below) Sacrament/Intervention _x__ Active listening ___ Anointing ___ Sabianism ___ Bereavement ___ Communion ___ Nancy exploration ___ ___ Life review _x__ Prayer ___ Reconciliation ___ Sacrament of Sick _x__ Supportive presence ___ Wedding ___ Other (describe below) Pastoral Comments
--- NOTE | 2018-09-14 16:34 | PCM.RX.CS ---
Consult Pharmacy has been consulted to manage selected antiobiotic: Vancomycin Type of Consult: New start Suspected Infection: Sepsis, Pneumonia Labs: Sodium 138 mmol/L (136-145) 09/13/18 05:32 Potassium 3.7 mmol/L (3.5-5.1) 09/13/18 05:32 Chloride 106 mmol/L (98-107) 09/13/18 05:32 Carbon Dioxide 20.0 mmol/L (21.0-32.0) L 09/13/18 05:32 Anion Gap 12 (5-15) 09/13/18 05:32 BUN 12 mg/dL (7-18) 09/13/18 05:32 Creatinine 0.92 mg/dL (0.70-1.30) 09/13/18 05:32 Est GFR (MDRD) Af Amer 129 mL/min (>60) 09/13/18 05:32 Est GFR (MDRD) Non-Af 106 mL/min (>60) 09/13/18 05:32 BUN/Creatinine Ratio 13.0 RATIO (10-20) 09/13/18 05:32 Glucose 145 mg/dL (74-106) H 09/13/18 05:32 Microbiology: Microbiology 09/14/18 05:45 Sputum, Expectorated/Coughed Gram Stain - Final 09/13/18 01:20 Mucosa - Nose Respiratory Panel (PCR) - Final Human [place] 09/13/18 01:20 Mucosa - Nose Influenza Types A,B Direct FA ([facility]) - Final 09/13/18 01:30 Urine, Clean Catch Streptococcus pneumoniae Antigen (M - Final 09/13/18 01:30 Urine, Clean Catch Legionella Antigen - Final Weight used for dosin kg Estimated Creatinine Clearance: 148 ML/MIN Goal Trough: 10-15 mcg/mL Pharmacy Plan for Drug Dosing: Initial dose of 1500mg IV x1 (started at 16:13), then continue with 1750mg IV q12h. A trough will be obtained before the 4th total dose. Pharmacy Service will continue to monitor and adjust dosing as required. Follow-Up Labs: Trough Vancomycin Labs to be done on [date and time ordered]: 09/16/18 03:30
[2018-09-15] VITALS (18 sets, daily range): BP systolic 118–138; BP diastolic 43–88; PULSE 61–123; RESP 16–18; TEMP 36.6–37.2; O2SAT 83–96
[2018-09-15] MEDS: 0.9% Normal Saline 1,000 ML 75 ML IV (05:10)
[2018-09-15 06:13] LABS: Absolute Lymphocyte Count 1.85 X10^3/ul (0.83-4.51); Absolute Neutrophil Count 4.3 X10^3/uL (2.0-7.7); Basophil# 0.02 X10^3/uL; Basophil% 0.3 % (0-1); Eosinophil# 0.01 X10^3/uL; Eosinophils% 0.1 % (0-5); Hematocrit 44.1 % (40-54); Hemoglobin 14.2 g/dl (13.0-16.5); Lymphocyte # 1.85 X10^3/ul (4.0); Lymphocyte % 26.7 % (19-41); Mean Corp Hgb Conc 32.2 g/gl (32-36); Mean Corpuscular Hgb 29.3 pg (27.0-32.0); Mean Corpuscular Volume 90.9 fL (80-94); Mean Platelet Vol. 10.1 fl (6.2-12.0); Monocyte# 0.73 X10^3/uL; Monocyte% 10.5 % (0-10); Neutrophil # 4.31 X10^3/uL (2.7-7.7); Neutrophil % 62.3 % (47-70); Platelet Count 171 K/mm3 (150-450); RBC Distribution Width CV 13.9 % (11.6-14.6); RBC Distribution Width SD 46.2 fl (35.1-43.9); Red Blood Count 4.85 M/mm3 (4.6-6.2); White Blood Count 6.9 K/mm3 (4.4-11.0)
[2018-09-15 06:24] LABS: POSITIVE COUNT NO; POSITIVE DIFFERENTIAL NO; POSITIVE MORPHOLOGY NO
[2018-09-15 06:27] LABS: Anion Gap 8 (5-15); BUN 11 mg/dL (7-18); BUN/Creat Ratio 13.6 RATIO (10-20); Calcium,Total 8.2 mg/dL (8.5-10.1); Chloride 106 mmol/L (98-107); Creatinine, Serum 0.81 mg/dL (0.70-1.30); EST Glomerular Filtration Rate 124 mL/min (>60); Est Glom Filt Rate - Afr Amer 150 mL/min (>60); Estimated Creatinine Clearance 168.07 ml/min; Glucose 105 mg/dL (74-106); Potassium 3.6 mmol/L (3.5-5.1); Sodium Level 139 mmol/L (136-145)
[2018-09-15] MEDS: Ipratropium/Albuterol Sulfate 3 ML AMPUL.NEB INHALATION ×5 (07:04→22:48)
--- NOTE | 2018-09-15 07:34 | CPS ---
PT PLACED BACK ON 2 LPM....SAT TO 93%
--- NOTE | 2018-09-15 07:58 | PCM.PROGNOTE ---
Patient Problems: Active and Suspected Problems (Last Updated 09/12/18 @ 23:17 by Shayan Ash MD) Aspiration pneumonia (Suspected) Sepsis (Acute) Subjective: Chief complaint: Follow-up after admission for acute asthma exacerbation due to viral pneumonia/bronchitis, complicated by acute hypoxic respiratory failure. Patient seen and examined. No acute events overnight. Today, he mentioned that his breathing is better, he is down to 2 L of oxygen. Still having dry cough, no sputum production. He has been afebrile. All over, is feeling better. He is afebrile, heart rate has been around 110, blood pressure stable, pulse ox is 96% on 2 L. - Physical Exam General: Alert, Oriented x3, Cooperative, No apparent distress HEENT: Atraumatic, PERRLA, EOMI, Normocephalic Oral: Moist Mucosa, No Gingival or Mucosal Lesions/ Ulcerations Neck: Supple, No JVD, Negative Carotid Bruits, Trachea Midline, Thyroid Normal Size and Texture Lungs: Diminished, Rhonchi, Wheezes, - - Decreased breath sounds bilateral, bilateral end expiratory wheezes. Scattered rhonchi. Cardiovascular: Regular rate, Regular Rhythm, Normal S1, Normal S2, PMI Normal, Tachycardic Abdomen: Bowel Sounds Present, Soft, Non Tender, Non-Distended, No Hepato-splenomegaly Extremities: No clubbing, No cyanosis, No edema Skin: No rashes, No breakdown Lymphatic: No Cervical, Supraclavicular, or Inguinal Adenopathy Neurological: Cranial nerves II-XII grossly intact, Neuro grossly intact Psych/Mental Status: Normal Affect, Appropriate, Alert and oriented to time, place, person, mood and affect Vital Signs Temp Pulse Resp BP Pulse Ox 98.3 F 107 H 16 119/43 L 83 09/15/18 01:49 09/15/18 07:37 09/15/18 07:04 09/15/18 01:49 09/15/18 07:04 Oxygen Flow Rate (L/min) 2 Oxygen Delivery Method Room Air Weight: 235 lb 14.314 oz Body Mass Index (BMI) 29.3 Finger Stick Blood Glucose 103 Intake and Output for Last 24 Hours 09/13/18 09/14/18 09/15/18 23:59 23:59 23:59 Intake Total 3736 / 3736 1843 / 1843 953 / 953 Output Total 800 / 800 1900 / 1900 350 / 350 Balance 2936 / 2936 -57 / -57 603 / 603 Microbiology Past 72 Hours 09/14/18 05:45 Gram Stain - Final Sputum, Expectorated/Coughed 09/13/18 01:20 Respiratory Panel (PCR) - Final Mucosa - Nose Human [place] 09/13/18 01:20 Influenza Types A,B Direct FA (VALE) - Final Mucosa - Nose 09/13/18 01:30 Streptococcus pneumoniae Antigen (M - Final Urine, Clean Catch 09/13/18 01:30 Legionella Antigen - Final Urine, Clean Catch Laboratory Tests Past 24 Hrs 09/14/18 09/14/18 09/14/18 05:32 09:12 12:32 WBC RBC Hgb Hct MCV MCH MCHC RDW RDW Differential Plt Count MPV Immature Gran % (Auto) Neut % (Auto) Lymph % (Auto) [place] % (Auto) Eos % (Auto) Baso % (Auto) Absolute Neuts (auto) Absolute Lymphs (auto) Total Counted Specimen Type ANIBAL Sample Site R Radial VBG pH 7.39 VBG pO2 39 VBG O2 Sat (Calc) 73 H VBG O2 Content 24 VBG Base Excess -2 L POC Mix VBG pCO2 Pt Tmp 37.5 L O2 Delivery Device Room Air Blood Gas Notified Whom [facility] Blood Gas Notified Time 1225 Sodium Potassium Chloride Carbon Dioxide Anion Gap BUN Creatinine Estim Creat Clear Calc Est GFR (MDRD) Af Amer Est GFR (MDRD) Non-Af BUN/Creatinine Ratio Glucose Lactic Acid 1.5 Calcium TSH 0.54 09/15/18 09/15/18 05:35 05:35 WBC 6.9 RBC 4.85 Hgb 14.2 Hct 44.1 MCV 90.9 MCH 29.3 MCHC 32.2 RDW 13.9 RDW Differential 46.2 H Plt Count 171 MPV 10.1 Immature Gran % (Auto) 0.100 Neut % (Auto) 62.3 Lymph % (Auto) 26.7 [place] % (Auto) 10.5 H Eos % (Auto) 0.1 Baso % (Auto) 0.3 Absolute Neuts (auto) 4.3 Absolute Lymphs (auto) 1.85 Total Counted Not Reportable Specimen Type Sample Site VBG pH VBG pO2 VBG O2 Sat (Calc) VBG O2 Content VBG Base Excess POC Mix VBG pCO2 Pt Tmp O2 Delivery Device Blood Gas Notified Whom Blood Gas Notified Time Sodium 139 Potassium 3.6 Chloride 106 Carbon Dioxide 25.0 Anion Gap 8 BUN 11 Creatinine 0.81 Estim Creat Clear Calc 168.07 Est GFR (MDRD) Af Amer 150 Est GFR (MDRD) Non-Af 124 BUN/Creatinine Ratio 13.6 Glucose 105 Lactic Acid Calcium 8.2 L TSH Clinical Impression(s) from Imaging Studies Chest CTA 09/14/18 10:42 IMPRESSION: No definite pulmonary embolism is seen. There has been a progression of the patchy bibasilar infiltrates in both lungs. Electronically Signed: Robson Oviedo MD at 11:46 EST Tel [phone], Service support , Medical Necessity - Tobacco Use Smoking Status: Current every day smoker Tobacco Use: Cigarettes Assessment/Plan All Active Problems (Last Updated 09/12/18 @ 23:17 by Shayan Ash MD) Sepsis (Acute) This is a 23 years old male patient presented to the emergency room because of nausea and vomiting and he was found to have sepsis secondary to probable viral pneumonia/bronchitis as well as acute asthma exacerbation complicated by acute hypoxic respiratory failure. #1 probable viral pneumonia/bronchitis/sepsis: IV antibiotics continued yesterday. Repeat CTA chest revealed no PE, revealed progression of the patchy bibasilar infiltrates on both lungs which is attributed to probable viral pneumonia due to human Metapneumo virus. Pneumococcal and Legionella antigen were negative. Respiratory panel for viruses was positive for Human metapneumo virus. Pulmonology consulted, recommended to discontinue IV antibiotics. Patient is on bronchodilators and oxygen as well as decongestant. Symptoms are improving, oxygen requirement has been decreasing. Plan to continue same treatment. #2 acute hypoxic respiratory failure: Secondary to above. Repeat CTA chest showed no evidence of PE, other findings reviewed as above. Patient reported improvement of the symptoms, oxygen requirement decreasing, he is down to 2 L. Still tachycardic, blood pressure stable. Plan to continue same treatment. #3 depression/anxiety/ADHD: Continue Zyprexa and Abilify. #4 DVT prophylaxis: Subcu Lovenox. This note was generated with Sevconation software. It may contain incorrect words, spelling, and punctuation that were not noted in checking the note before signing. Code Visit Inpatient E&M: 42421 Subs Hosp L2
--- NOTE | 2018-09-15 08:04 | PN_ITS ---
Patient Problems: Active and Suspected Problems (Last Updated 09/12/18 @ 23:17 by Shayan Ash MD) Aspiration pneumonia (Suspected) Sepsis (Acute) Subjective: Chief complaint: Follow-up after admission for acute asthma exacerbation due to viral pneumonia/bronchitis, complicated by acute hypoxic respiratory failure. Patient seen and examined. No acute events overnight. Today, he mentioned that his breathing is better, he is down to 2 L of oxygen. Still having dry cough, no sputum production. He has been afebrile. All over, is feeling better. He is afebrile, heart rate has been around 110, blood pressure stable, pulse ox is 96% on 2 L. - Physical Exam General: Alert, Oriented x3, Cooperative, No apparent distress HEENT: Atraumatic, PERRLA, EOMI, Normocephalic Oral: Moist Mucosa, No Gingival or Mucosal Lesions/ Ulcerations Neck: Supple, No JVD, Negative Carotid Bruits, Trachea Midline, Thyroid Normal Size and Texture Lungs: Diminished, Rhonchi, Wheezes, - - Decreased breath sounds bilateral, bilateral end expiratory wheezes. Scattered rhonchi. Cardiovascular: Regular rate, Regular Rhythm, Normal S1, Normal S2, PMI Normal, Tachycardic Abdomen: Bowel Sounds Present, Soft, Non Tender, Non-Distended, No Hepato- splenomegaly Extremities: No clubbing, No cyanosis, No edema Skin: No rashes, No breakdown Lymphatic: No Cervical, Supraclavicular, or Inguinal Adenopathy Neurological: Cranial nerves II-XII grossly intact, Neuro grossly intact Psych/Mental Status: Normal Affect, Appropriate, Alert and oriented to time, place, person, mood and affect Vital Signs Temp Pulse Resp BP Pulse Ox 98.3 F 107 H 16 119/43 L 83 09/15/18 01:49 09/15/18 07:37 09/15/18 07:04 09/15/18 01:49 09/15/18 07:04 Oxygen Flow Rate (L/min) 2 Oxygen Delivery Method Room Air Weight: 235 lb 14.314 oz Body Mass Index (BMI) 29.3 Finger Stick Blood Glucose 103 Intake and Output for Last 24 Hours 09/13/18 09/14/18 09/15/18 23:59 23:59 23:59 Intake Total 3736 / 3736 1843 / 1843 953 / 953 Output Total 800 / 800 1900 / 1900 350 / 350 Balance 2936 / 2936 -57 / -57 603 / 603 Microbiology Past 72 Hours 09/14/18 05:45 Gram Stain - Final Sputum, Expectorated/Coughed 09/13/18 01:20 Respiratory Panel (PCR) - Final Mucosa - Nose Human [place] 09/13/18 01:20 Influenza Types A,B Direct FA (VALE) - Final Mucosa - Nose 09/13/18 01:30 Streptococcus pneumoniae Antigen (M - Final Urine, Clean Catch 09/13/18 01:30 Legionella Antigen - Final Urine, Clean Catch Laboratory Tests Past 24 Hrs 09/14/18 09/14/18 09/14/18 05:32 09:12 12:32 WBC RBC Hgb Hct MCV MCH MCHC RDW RDW Differential Plt Count MPV Immature Gran % (Auto) Neut % (Auto) Lymph % (Auto) [place] % (Auto) Eos % (Auto) Baso % (Auto) Absolute Neuts (auto) Absolute Lymphs (auto) Total Counted Specimen Type ANIBAL Sample Site R Radial VBG pH 7.39 VBG pO2 39 VBG O2 Sat (Calc) 73 H VBG O2 Content 24 VBG Base Excess -2 L POC Mix VBG pCO2 Pt Tmp 37.5 L O2 Delivery Device Room Air Blood Gas Notified Whom [facility] Blood Gas Notified Time 1225 Sodium Potassium Chloride Carbon Dioxide Anion Gap BUN Creatinine Estim Creat Clear Calc Est GFR (MDRD) Af Amer Est GFR (MDRD) Non-Af BUN/Creatinine Ratio Glucose Lactic Acid 1.5 Calcium TSH 0.54 09/15/18 09/15/18 05:35 05:35 WBC 6.9 RBC 4.85 Hgb 14.2 Hct 44.1 MCV 90.9 MCH 29.3 MCHC 32.2 RDW 13.9 RDW Differential 46.2 H Plt Count 171 MPV 10.1 Immature Gran % (Auto) 0.100 Neut % (Auto) 62.3 Lymph % (Auto) 26.7 [place] % (Auto) 10.5 H Eos % (Auto) 0.1 Baso % (Auto) 0.3 Absolute Neuts (auto) 4.3 Absolute Lymphs (auto) 1.85 Total Counted Not Reportable Specimen Type Sample Site VBG pH VBG pO2 VBG O2 Sat (Calc) VBG O2 Content VBG Base Excess POC Mix VBG pCO2 Pt Tmp O2 Delivery Device Blood Gas Notified Whom Blood Gas Notified Time Sodium 139 Potassium 3.6 Chloride 106 Carbon Dioxide 25.0 Anion Gap 8 BUN 11 Creatinine 0.81 Estim Creat Clear Calc 168.07 Est GFR (MDRD) Af Amer 150 Est GFR (MDRD) Non-Af 124 BUN/Creatinine Ratio 13.6 Glucose 105 Lactic Acid Calcium 8.2 L TSH Clinical Impression(s) from Imaging Studies Chest CTA 09/14/18 10:42 IMPRESSION: No definite pulmonary embolism is seen. There has been a progression of the patchy bibasilar infiltrates in both lungs. Electronically Signed: Robson Oviedo MD at 11:46 EST Tel [phone], Service support , Medical Necessity - Tobacco Use Smoking Status: Current every day smoker Tobacco Use: Cigarettes Assessment/Plan All Active Problems (Last Updated 09/12/18 @ 23:17 by Shayan Ash MD) Sepsis (Acute) This is a 23 years old male patient presented to the emergency room because of nausea and vomiting and he was found to have sepsis secondary to probable viral pneumonia/bronchitis as well as acute asthma exacerbation complicated by acute hypoxic respiratory failure. #1 probable viral pneumonia/bronchitis/sepsis: IV antibiotics continued yesterday. Repeat CTA chest revealed no PE, revealed progression of the patchy bibasilar infiltrates on both lungs which is attributed to probable viral pneumonia due to human Metapneumo virus. Pneumococcal and Legionella antigen were negative. Respiratory panel for viruses was positive for Human metapneumo virus. Pulmonology consulted, recommended to discontinue IV antibiotics. Patient is on bronchodilators and oxygen as well as decongestant. Symptoms are improving, oxygen requirement has been decreasing. Plan to continue same treatment. #2 acute hypoxic respiratory failure: Secondary to above. Repeat CTA chest showed no evidence of PE, other findings reviewed as above. Patient reported improvement of the symptoms, oxygen requirement decreasing, he is down to 2 L. Still tachycardic, blood pressure stable. Plan to continue same treatment. #3 depression/anxiety/ADHD: Continue Zyprexa and Abilify. #4 DVT prophylaxis: Subcu Lovenox. This note was generated with PriceSpotation software. It may contain incorrect words, spelling, and punctuation that were not noted in checking the note before signing. Code Visit Inpatient E&M: 58248 Subs Hosp L2
[2018-09-15] MEDS: guaiFENesin 1,200 MG Tablet 1200 MG PO ×2 (10:27→21:00)
[2018-09-15] MEDS: 0.9% NaCl Peripheral Flush Adult/Peds IV (10:27)
[2018-09-15] MEDS: Enoxaparin 40 MG/0.4 ML Syringe SC (10:27)
[2018-09-15] MEDS: OLANZapine 5 MG/TAB TAB.RAPDIS PO ×2 (10:28→21:00)
[2018-09-15] MEDS: predniSONE 20 MG Tablet 40 MG PO (10:28)
[2018-09-15] MEDS: ARIPiprazole 10 MG Tablet PO (10:28)
[2018-09-15 11:12] LABS: Mycoplasma Pneum AB IgG < 100 U/mL (0-99); Mycoplasma pneum. AB IgM < 770 U/mL (0-769)
--- NOTE | 2018-09-15 11:51 | PN_ITS ---
Subjective: Patient did okay overnight. Patient still requiring supplemental oxygen. Patient does not interact much, but feels that he is subjectively improved compared to previous. - Physical Exam General: Alert, Oriented x3, Cooperative, No apparent distress, - - Flat affect. Minimally conversant. HEENT: Atraumatic, PERRLA, EOMI, Normocephalic Oral: Moist Mucosa, No Gingival or Mucosal Lesions/ Ulcerations Neck: Supple, No JVD, No Nodes, Trachea Midline Lungs: No rhonchi, No rales, Diminished, Wheezes Cardiovascular: Regular rate, Regular Rhythm, Normal S1, Normal S2, No murmurs, No rub noted, No Gallop Abdomen: Bowel Sounds Present, Soft, Non Tender, Non-Distended Extremities: No clubbing, No cyanosis, No edema, Capillary Refill Less than 3 Seconds Skin: No rashes, No breakdown Musculoskeletal: No Tenderness to Palpation of Joints or Extremities Lymphatic: No Cervical, Supraclavicular, or Inguinal Adenopathy Neurological: Cranial nerves II-XII grossly intact, Neuro grossly intact, Motor Exam 5/5 strength throughout Psych/Mental Status: Appropriate, Flat Affect Vital Signs Temp Pulse Resp BP Pulse Ox 36.8 C 105 H 16 118/63 92 09/15/18 10:02 09/15/18 10:53 09/15/18 10:53 09/15/18 10:02 09/15/18 10:02 Oxygen Flow Rate (L/min) 2 Oxygen Delivery Method Nasal Cannula Weight: 107 kg Body Mass Index (BMI) 29.3 Finger Stick Blood Glucose 103 Intake and Output for Last 24 Hours 09/13/18 09/14/18 09/15/18 23:59 23:59 23:59 Intake Total 3736 / 3736 1843 / 1843 953 / 953 Output Total 800 / 800 1900 / 1900 350 / 350 Balance 2936 / 2936 -57 / -57 603 / 603 Microbiology Past 72 Hours 09/14/18 05:45 Gram Stain - Final Sputum, Expectorated/Coughed Respiratory Culture - Preliminary Culture exhibits no growth. 09/13/18 00:55 Blood Culture - Preliminary Blood Culture (Wb) - Anticubital Right No growth in 48 hours. 09/12/18 19:57 Blood Culture - Preliminary Blood Culture (Wb) - Anticubital Left No growth in 48 hours. 09/13/18 01:20 Respiratory Panel (PCR) - Final Mucosa - Nose Human [place] 09/13/18 01:20 Influenza Types A,B Direct FA (VALE) - Final Mucosa - Nose 09/13/18 01:30 Streptococcus pneumoniae Antigen (M - Final Urine, Clean Catch 09/13/18 01:30 Legionella Antigen - Final Urine, Clean Catch Laboratory Tests Past 24 Hrs 09/13/18 09/14/18 09/15/18 00:55 12:32 05:35 WBC 6.9 RBC 4.85 Hgb 14.2 Hct 44.1 MCV 90.9 MCH 29.3 MCHC 32.2 RDW 13.9 RDW Differential 46.2 H Plt Count 171 MPV 10.1 Immature Gran % (Auto) 0.100 Neut % (Auto) 62.3 Lymph % (Auto) 26.7 [place] % (Auto) 10.5 H Eos % (Auto) 0.1 Baso % (Auto) 0.3 Absolute Neuts (auto) 4.3 Absolute Lymphs (auto) 1.85 Total Counted Not Reportable Specimen Type ANIBAL Sample Site R Radial VBG pH 7.39 VBG pO2 39 VBG O2 Sat (Calc) 73 H VBG O2 Content 24 VBG Base Excess -2 L POC Mix VBG pCO2 Pt Tmp 37.5 L O2 Delivery Device Room Air Blood Gas Notified Whom [facility] MD Blood Gas Notified Time 1225 Sodium Potassium Chloride Carbon Dioxide Anion Gap BUN Creatinine Estim Creat Clear Calc Est GFR (MDRD) Af Amer Est GFR (MDRD) Non-Af BUN/Creatinine Ratio Glucose Calcium Mycoplasma pneumon IgG < 100 Mycoplasma pneumon IgM < 770 09/15/18 05:35 WBC RBC Hgb Hct MCV MCH MCHC RDW RDW Differential Plt Count MPV Immature Gran % (Auto) Neut % (Auto) Lymph % (Auto) [place] % (Auto) Eos % (Auto) Baso % (Auto) Absolute Neuts (auto) Absolute Lymphs (auto) Total Counted Specimen Type Sample Site VBG pH VBG pO2 VBG O2 Sat (Calc) VBG O2 Content VBG Base Excess POC Mix VBG pCO2 Pt Tmp O2 Delivery Device Blood Gas Notified Whom Blood Gas Notified Time Sodium 139 Potassium 3.6 Chloride 106 Carbon Dioxide 25.0 Anion Gap 8 BUN 11 Creatinine 0.81 Estim Creat Clear Calc 168.07 Est GFR (MDRD) Af Amer 150 Est GFR (MDRD) Non-Af 124 BUN/Creatinine Ratio 13.6 Glucose 105 Calcium 8.2 L Mycoplasma pneumon IgG Mycoplasma pneumon IgM Medical Necessity - Tobacco Use Smoking Status: Current every day smoker Tobacco Use: Cigarettes Assessment/Plan All Active Problems (Last Updated 09/12/18 @ 23:17 by Shayan Ash MD) Sepsis (Acute) RECOMMENDATIONS: 1. Continue albuterol nebulizer every 6 hours as needed while awake 2. Monitor off antibiotics 3. Wean supplemental oxygen to maintain saturations 89-92% 4. Increase activity as tolerated 5. Walking oximetry prior to discharge 6. Workup as an outpatient as described previously IMPRESSIONS: 1. Acute respiratory failure secondary to human Metapneumovirus and likely aspiration pneumonia Continue supportive measures for viral illness, including submental oxygen to maintain saturations 89-92%, as well as rehydration. Continue antibiotics for believed aspiration pneumonia. Continue Zofran as needed for additional episodes of emesis. Patient is still requiring supplemental oxygen to maintain saturations. Clinical suspicion for significant atelectasis with retained secretions. Discussed with nursing about ambulating patient to help with pulmonary toileting. High suspicion that patient would be noncompliant with supplemental oxygen or smoke with supplemental oxygen in place if discharged on oxygen. This may prolong patient's hospital course. Continue prednisone at current dosing. 2. Asthma Continue albuterol nebulizer every 6 hours as needed for shortness of breath or wheezing, do not disturb sleep if patient is restful. Consider PFTs on an outpatient basis. 3. Nicotine abuse Encourage smoking cessation. 4. ADHD/Asperger's syndrome/anxiety Complicates exam, plan, care and prognosis. Continue all home medications as rates, defer management to hospitalist. Code Visit Inpatient E&M: 37912 Subs Hosp L3
[2018-09-16] VITALS (8 sets, daily range): BP systolic 104–150; BP diastolic 54–78; PULSE 82–108; RESP 18; TEMP 36.7–37.2; O2SAT 92–95
[2018-09-16] MEDS: Ipratropium/Albuterol Sulfate 3 ML AMPUL.NEB INHALATION ×2 (03:23→07:22)
[2018-09-16] MEDS: OLANZapine 5 MG/TAB TAB.RAPDIS PO (10:15)
[2018-09-16] MEDS: guaiFENesin 1,200 MG Tablet 1200 MG PO (10:15)
[2018-09-16] MEDS: predniSONE 20 MG Tablet 40 MG PO (10:15)
[2018-09-16] MEDS: ARIPiprazole 10 MG Tablet PO (10:15)
--- NOTE | 2018-09-16 10:15 | PCM.PROGNOTE ---
Subjective: Patient did well overnight. Patient did have walking oximetry today showing no significant desaturation. Spoke with patient's mother and aunt at the bedside. They feel he is approaching his baseline. - Physical Exam General: Alert, Cooperative, No apparent distress, - - No conversational dyspnea HEENT: Atraumatic, PERRLA, EOMI, Normocephalic, - - Slight scleral injection without icterus Oral: Moist Mucosa, No Gingival or Mucosal Lesions/ Ulcerations Neck: Supple, No JVD, No Nodes, Trachea Midline Lungs: No rhonchi, No wheeze, No rales, Diminished, - - Symmetric expansion. No dullness to percussion. Cardiovascular: Regular rate, Regular Rhythm, Normal S1, Normal S2, No murmurs, No rub noted, No Gallop Abdomen: Bowel Sounds Present, Soft, Non Tender, Non-Distended Extremities: No clubbing, No cyanosis, No edema, Capillary Refill Less than 3 Seconds Skin: No rashes, No breakdown Musculoskeletal: No Tenderness to Palpation of Joints or Extremities, No Muscle Wasting Lymphatic: No Cervical, Supraclavicular, or Inguinal Adenopathy Neurological: Cranial nerves II-XII grossly intact, Neuro grossly intact, Motor Exam 5/5 strength throughout Psych/Mental Status: Flat Affect Vital Signs Temp Pulse Resp BP Pulse Ox 37.2 C 108 H 18 104/54 L 93 09/16/18 09:04 09/16/18 09:04 09/16/18 09:04 09/16/18 09:04 09/16/18 09:04 Oxygen Flow Rate (L/min) [ 0 AMBULATING on Room Air] Oxygen Flow Rate (L/min) [At 0 REST on Room Air] Oxygen Flow Rate (L/min) 2 Oxygen Delivery Method Room Air Weight: 107 kg Body Mass Index (BMI) 29.3 Finger Stick Blood Glucose 103 Intake and Output for Last 24 Hours 09/14/18 09/15/18 09/16/18 23:59 23:59 23:59 Intake Total 1843 / 1843 2497 / 2497 Output Total 1900 / 1900 350 / 350 Balance -57 / -57 2147 / 2147 Microbiology Past 72 Hours 09/14/18 05:45 Gram Stain - Final Sputum, Expectorated/Coughed Respiratory Culture - Preliminary Culture exhibits no growth. 09/13/18 00:55 Blood Culture - Preliminary Blood Culture (Wb) - Anticubital Right No growth in 48 hours. 09/12/18 19:57 Blood Culture - Preliminary Blood Culture (Wb) - Anticubital Left No growth in 48 hours. 09/13/18 01:20 Respiratory Panel (PCR) - Final Mucosa - Nose Human [place] Laboratory Tests Past 24 Hrs 09/13/18 00:55 Mycoplasma pneumon IgG < 100 Mycoplasma pneumon IgM < 770 Medical Necessity - Tobacco Use Smoking Status: Current every day smoker Tobacco Use: Cigarettes Assessment/Plan All Active Problems (Last Updated 09/12/18 @ 23:17 by Shayan Ash MD) Sepsis (Acute) RECOMMENDATIONS: 1. Continue albuterol nebulizer every 6 hours as needed while awake 2. Okay to discharge from my perspective 3. Wean supplemental oxygen to maintain saturations 89-92% 4. Follow-up with nurse practitioner in my office in 2 weeks for outpatient workup IMPRESSIONS: 1. Acute respiratory failure secondary to human Metapneumovirus and likely aspiration pneumonia Patient appears to be approaching baseline. Saturations are acceptable following walking oximetry. Unclear if patient has underlying COPD or asthma. Outpatient workup would be required. Given possibility of COPD, it would be reasonable to wean steroids over the next 12-14 days. Patient should follow-up in our office in 2 weeks with nurse practitioner. Okay to discharge from my perspective off supplemental oxygen 2. Asthma Continue albuterol nebulizer every 6 hours as needed for shortness of breath or wheezing, do not disturb sleep if patient is restful. Consider PFTs on an outpatient basis. 3. Nicotine abuse Encourage smoking cessation. 4. ADHD/Asperger's syndrome/anxiety Complicates exam, plan, care and prognosis. Continue all home medications as rates, defer management to hospitalist.
--- NOTE | 2018-09-16 10:16 | DCINST_ITS ---
You will use the following diet at home:: Regular Your food should be the consistency of: Regular Discharge Activity: Return to Normal Activity Weight Bearing Status: Full weight bearing Call your doctor if you observe: Fever of 101 or Higher, Shortness of breath, Dizziness, Fainting spells, Chest pain, Increased palpitations (irregular heartbeat), Uncontrolled pain Allergies/Adverse Reactions: Allergies amoxicillin trihydrate [From Augmentin] Allergy (Verified 09/14/18 13:21) Rash potassium clavulanate [From Augmentin] Allergy (Verified 09/14/18 13:21) Rash Medications to take at Discharge Aripiprazole 10 mg PO BID PRN 08/23/17 Olanzapine [Zyprexa] 5 mg PO BID PRN 08/23/17 Guaifenesin [Robitussin] 10 ml PO Q6H PRN PRN #20 udc 09/16/18 The following prescriptions were given: Guaifenesin [Robitussin] 10 ml PO Q6H PRN PRN #20 udc PRN Reason: Cough/Congestion Primary Care Physician: Jose Francisco Domingo DO [Primary Care Provider] - Please follow up with your Primary Care Physician in: 1 week. Test Results: Test results from this visit will be discussed in further detail at your follow- up appointment, if applicable. Please Follow Up With: Robbi Latham MD When: 2-4 weeks.
--- NOTE | 2018-09-16 12:23 | PCM.DC.SUM ---
Discharge Date and Diagnosis Date of Admission: 09/12/18 Date of Discharge: 09/16/18 - Primary Discharge Diagnosis #1 acute post viral pneumonia/bronchitis. #2 sepsis. #3 acute hypoxic respiratory failure. #4 probable acute asthma exacerbation. - Secondary Discharge Diagnosis Chronic Problems (Last Updated 09/12/18 @ 23:17 by Shayan Ash MD) ADHD (Chronic) Depression (Chronic) Anxiety (Chronic) Hospital Course and Treatment Imaging Results: Clinical Impression(s) from Imaging Studies Chest X-Ray 09/12/18 19:22 IMPRESSION: No acute cardiopulmonary disease Electronically Signed: Teodoro Bolivar DO at 20:05 EST Tel , Service support , Chest CTA 09/12/18 21:02 IMPRESSION: Indeterminate filling defect within a subsegmental pulmonary artery within the right lower lobe which may be artifactual in nature however cannot exclude a pulmonary embolus. Ill-defined nodular opacities within the right upper lobe may be secondary to an infectious process. Fatty infiltration of the liver. Electronically Signed: Marii Foote MD at 21:59 EST Tel , Service support , ADDENDUM: 09/13/18 1655 Chest CTA 09/14/18 10:42 IMPRESSION: No definite pulmonary embolism is seen. There has been a progression of the patchy bibasilar infiltrates in both lungs. Electronically Signed: Robson Oviedo MD at 11:46 EST Tel [phone], Service support , Dr. Latham, pulmonology. Operations: None Procedures: None Summary of Care Provided: Patient seen and examined on the day of discharge and appeared to be stable to be discharged home. He reported continued improvement of his symptoms, he has been off oxygen. Other vital signs stable, afebrile. The patient is a 23 year old M presented to the emergency department because of nausea, vomiting, cough and sore throat and he was found to have sepsis secondary to acute post viral pneumonia/bronchitis, probable asthma exacerbation as well as acute hypoxic respiratory failure. On admission, patient was dyspneic, tachypneic, febrile and tachycardic. Admission chest x-ray showed no acute findings. Because of the tachycardic and hypoxic, CTA chest done on admission and revealed indeterminate filling defect within the subsegmental pulmonary artery in the right lower lobe and PE cannot be excluded, revealed nodular opacities in the right upper lobe as well. Patient was treated with IV fluids, IV antibiotics and bronchodilators. Respiratory panel for viruses came back positive for human Metapneumo virus. Sputum culture revealed presumptive of Libby. Pneumococcal and Legionella antigen were negative. Blood culture showed no growth in 48 hours. In spite of IV antibiotics, bronchodilators, patient continued to be hypoxic and tachycardic. CTA chest repeated because there was a concern that he may have acute pulmonary emboli and that a repeat CTA chest confirmed that there is no pulmonary embolism, revealed progression of the patchy bibasilar infiltrates of both lungs. Pulmonology consulted and stated that this is likely due to post viral pneumonia and there is no need for antibiotics. IV antibiotics continued and patient continued on steroids and bronchodilators. After discontinuation of IV antibiotics, patient did well, symptoms improved and he was able to maintain pulse ox on room air without oxygen. His routine blood work was unremarkable. On the day of discharge, walking pulse oximeter performed and his pulse ox remained above 88% and there was no indication to have him go on home oxygen. Patient discharged home in a stable medical condition, discharged with no antibiotics, discharged only on cough suppressant, plan to follow-up with pulmonology in 2-4 weeks, patient will likely need lung function test as outpatient, recommended follow-up with PCP in 1 week. - Physical Exam General: Alert, Oriented x3, Cooperative, No apparent distress HEENT: Atraumatic, PERRLA, EOMI, Normocephalic Oral: Moist Mucosa, No Gingival or Mucosal Lesions/ Ulcerations Neck: Supple, No JVD, Negative Carotid Bruits, Trachea Midline Lungs: Clear to auscultation, Normal air movement, No rhonchi, No wheeze, No rales Cardiovascular: Regular rate, Regular Rhythm, Normal S1, Normal S2 Abdomen: Bowel Sounds Present, Soft, Non Tender, Non-Distended, No Hepato-splenomegaly Extremities: No clubbing, No cyanosis, No edema Skin: No rashes, No breakdown Lymphatic: No Cervical, Supraclavicular, or Inguinal Adenopathy Neurological: Cranial nerves II-XII grossly intact, Neuro grossly intact Psych/Mental Status: Normal Affect, Appropriate Vital Signs Temp Pulse Resp BP Pulse Ox 99.0 F 108 H 18 104/54 L 93 09/16/18 09:04 09/16/18 09:04 09/16/18 09:04 09/16/18 09:04 09/16/18 10:18 Oxygen Flow Rate (L/min) [ 0 AMBULATING on Room Air] Oxygen Flow Rate (L/min) [At 0 REST on Room Air] Oxygen Flow Rate (L/min) 2 Oxygen Delivery Method Room Air Weight: 235 lb 14.314 oz Body Mass Index (BMI) 29.3 Finger Stick Blood Glucose 103 Intake and Output for Last 24 Hours 09/14/18 09/15/18 09/16/18 23:59 23:59 23:59 Intake Total 1843 / 1843 2497 / 2497 Output Total 1900 / 1900 350 / 350 Balance -57 / -57 2147 / 2147 Microbiology Past 72 Hours 09/14/18 05:45 Gram Stain - Final Sputum, Expectorated/Coughed Respiratory Culture - Final Presumptive C albicans 09/13/18 00:55 Blood Culture - Preliminary Blood Culture (Wb) - Anticubital Right No growth in 48 hours. 09/12/18 19:57 Blood Culture - Preliminary Blood Culture (Wb) - Anticubital Left No growth in 48 hours. 09/13/18 01:20 Respiratory Panel (PCR) - Final Mucosa - Nose Human [place] Discharge Activity: Return to Normal Activity Weight Bearing Status: Full weight bearing Call your doctor if you observe: Fever of 101 or Higher, Shortness of breath, Dizziness, Fainting spells, Chest pain, Increased palpitations (irregular heartbeat), Uncontrolled pain Home Medications: Medications to take at Discharge Aripiprazole 10 mg PO BID PRN 08/23/17 Olanzapine [Zyprexa] 5 mg PO BID PRN 08/23/17 Guaifenesin [Robitussin] 10 ml PO Q6H PRN PRN #20 udc 09/16/18 Following Prescrptions Were Given to Patient: Guaifenesin [Robitussin] 10 ml PO Q6H PRN PRN #20 udc PRN Reason: Cough/Congestion Primary Care Physician: Jose Francisco Domingo, DO [Primary Care Provider] - Please follow up with your Primary Care Physician in: 1 week. Please Follow Up With: Robbi Latham MD When: 2-4 weeks. Please Follow Up With: Jose Francisco Domingo When: 1 week Disposition: Home Minutes spent on discharge:: 32 Patient Condition:: Stable Medical Necessity - Tobacco Use Smoking Status: Current every day smoker Tobacco Use: Cigarettes Meaningful Use Info Meaningful Use Diagnoses (Choose all that apply): None applicable Code Visit Inpatient E&M: 51424 Disch Hosp
--- NOTE | 2018-09-16 12:30 | DS.PCM_ITS ---
Discharge Date and Diagnosis Date of Admission: 09/12/18 Date of Discharge: 09/16/18 - Primary Discharge Diagnosis #1 acute post viral pneumonia/bronchitis. #2 sepsis. #3 acute hypoxic respiratory failure. #4 probable acute asthma exacerbation. - Secondary Discharge Diagnosis Chronic Problems (Last Updated 09/12/18 @ 23:17 by Shayan Ash MD) ADHD (Chronic) Depression (Chronic) Anxiety (Chronic) Hospital Course and Treatment Imaging Results: Clinical Impression(s) from Imaging Studies Chest X-Ray 09/12/18 19:22 IMPRESSION: No acute cardiopulmonary disease Electronically Signed: Teodoro Bolivar DO at 20:05 EST Tel , Service support , Chest CTA 09/12/18 21:02 IMPRESSION: Indeterminate filling defect within a subsegmental pulmonary artery within the right lower lobe which may be artifactual in nature however cannot exclude a pulmonary embolus. Ill-defined nodular opacities within the right upper lobe may be secondary to an infectious process. Fatty infiltration of the liver. Electronically Signed: Marii Foote MD at 21:59 EST Tel , Service support , ADDENDUM: 09/13/18 1655 Chest CTA 09/14/18 10:42 IMPRESSION: No definite pulmonary embolism is seen. There has been a progression of the patchy bibasilar infiltrates in both lungs. Electronically Signed: Robson Oviedo MD at 11:46 EST Tel [phone], Service support , Dr. Latham, pulmonology. Operations: None Procedures: None Summary of Care Provided: Patient seen and examined on the day of discharge and appeared to be stable to be discharged home. He reported continued improvement of his symptoms, he has been off oxygen. Other vital signs stable, afebrile. The patient is a 23 year old M presented to the emergency department because of nausea, vomiting, cough and sore throat and he was found to have sepsis secondary to acute post viral pneumonia/bronchitis, probable asthma exacerbation as well as acute hypoxic respiratory failure. On admission, patient was dyspneic, tachypneic, febrile and tachycardic. Admission chest x-ray showed no acute findings. Because of the tachycardic and hypoxic, CTA chest done on admission and revealed indeterminate filling defect within the subsegmental pulmonary artery in the right lower lobe and PE cannot be excluded, revealed nodular opacities in the right upper lobe as well. Patient was treated with IV fluids, IV antibiotics and bronchodilators. Respiratory panel for viruses came back positive for human Metapneumo virus. Sputum culture revealed presumptive of Libby. Pneumococcal and Legionella antigen were negative. Blood culture showed no growth in 48 hours. In spite of IV antibiotics, bronchodilators, patient continued to be hypoxic and tachycardic. CTA chest repeated because there was a concern that he may have acute pulmonary emboli and that a repeat CTA chest confirmed that there is no pulmonary embolism, revealed progression of the patchy bibasilar infiltrates of both lungs. Pulmonology consulted and stated that this is likely due to post viral pneumonia and there is no need for antibiotics. IV antibiotics continued and patient continued on steroids and bronchodilators. After discontinuation of IV antibiotics, patient did well, symptoms improved and he was able to maintain pulse ox on room air without oxyge n. His routine blood work was unremarkable. On the day of discharge, walking pulse oximeter performed and his pulse ox remained above 88% and there was no indication to have him go on home oxygen. Patient discharged home in a stable medical condition, discharged with no antibiotics, discharged only on cough suppressant, plan to follow-up with pulmonology in 2-4 weeks, patient will likely need lung function test as outpatient, recommended follow-up with PCP in 1 week. - Physical Exam General: Alert, Oriented x3, Cooperative, No apparent distress HEENT: Atraumatic, PERRLA, EOMI, Normocephalic Oral: Moist Mucosa, No Gingival or Mucosal Lesions/ Ulcerations Neck: Supple, No JVD, Negative Carotid Bruits, Trachea Midline Lungs: Clear to auscultation, Normal air movement, No rhonchi, No wheeze, No rales Cardiovascular: Regular rate, Regular Rhythm, Normal S1, Normal S2 Abdomen: Bowel Sounds Present, Soft, Non Tender, Non-Distended, No Hepato- splenomegaly Extremities: No clubbing, No cyanosis, No edema Skin: No rashes, No breakdown Lymphatic: No Cervical, Supraclavicular, or Inguinal Adenopathy Neurological: Cranial nerves II-XII grossly intact, Neuro grossly intact Psych/Mental Status: Normal Affect, Appropriate Vital Signs Temp Pulse Resp BP Pulse Ox 99.0 F 108 H 18 104/54 L 93 09/16/18 09:04 09/16/18 09:04 09/16/18 09:04 09/16/18 09:04 09/16/18 10:18 Oxygen Flow Rate (L/min) [ 0 AMBULATING on Room Air] Oxygen Flow Rate (L/min) [At 0 REST on Room Air] Oxygen Flow Rate (L/min) 2 Oxygen Delivery Method Room Air Weight: 235 lb 14.314 oz Body Mass Index (BMI) 29.3 Finger Stick Blood Glucose 103 Intake and Output for Last 24 Hours 09/14/18 09/15/18 09/16/18 23:59 23:59 23:59 Intake Total 1843 / 1843 2497 / 2497 Output Total 1900 / 1900 350 / 350 Balance -57 / -57 2147 / 2147 Microbiology Past 72 Hours 09/14/18 05:45 Gram Stain - Final Sputum, Expectorated/Coughed Respiratory Culture - Final Presumptive C albicans 09/13/18 00:55 Blood Culture - Preliminary Blood Culture (Wb) - Anticubital Right No growth in 48 hours. 09/12/18 19:57 Blood Culture - Preliminary Blood Culture (Wb) - Anticubital Left No growth in 48 hours. 09/13/18 01:20 Respiratory Panel (PCR) - Final Mucosa - Nose Human [place] Discharge Activity: Return to Normal Activity Weight Bearing Status: Full weight bearing Call your doctor if you observe: Fever of 101 or Higher, Shortness of breath, Dizziness, Fainting spells, Chest pain, Increased palpitations (irregular heartbeat), Uncontrolled pain Home Medications: Medications to take at Discharge Aripiprazole 10 mg PO BID PRN 08/23/17 Olanzapine [Zyprexa] 5 mg PO BID PRN 08/23/17 Guaifenesin [Robitussin] 10 ml PO Q6H PRN PRN #20 udc 09/16/18 Following Prescrptions Were Given to Patient: Guaifenesin [Robitussin] 10 ml PO Q6H PRN PRN #20 udc PRN Reason: Cough/Congestion Primary Care Physician: Jose Francisco Domingo, DO [Primary Care Provider] - Please follow up with your Primary Care Physician in: 1 week. Please Follow Up With: Robbi Latham MD When: 2-4 weeks. Please Follow Up With: Jose Francisco Domingo When: 1 week Disposition: Home Minutes spent on discharge:: 32 Patient Condition:: Stable Medical Necessity - Tobacco Use Smoking Status: Current every day smoker Tobacco Use: Cigarettes Meaningful Use Info Meaningful Use Diagnoses (Choose all that apply): None applicable Code Visit Inpatient E&M: 39373 Disch Hosp
== END 2018-09-16 11:19 | disposition home or self-care (01) | DRG 720 ==
LOC: ED 19:09 → MS2 23:23
PROVIDERS: Admitting Provider Hospitalist; Emergency Provider Emergency Medicine; Family Provider Student in an Organized Health Care Education/Training Program; PCP Student in an Organized Health Care Education/Training Program; Visit Provider Hospitalist
DX: A41.89 Other specified sepsis (principal); J96.01 Acute respiratory failure with hypoxia; J12.3 Human metapneumovirus pneumonia; J45.901 Unspecified asthma with (acute) exacerbation; R73.03 Prediabetes; F17.210 Nicotine dependence, cigarettes, uncomplicated; F90.9 Attention-deficit hyperactivity disorder, unspecified type; F32.9 Major depressive disorder, single episode, unspecified; F41.9 Anxiety disorder, unspecified; J20.8 Acute bronchitis due to other specified organisms; B97.81 Human metapneumovirus as the cause of diseases classified elsewhere
CPT/HCPCS: 36415; 71045; 71275; 80048; 80076; 81001; 82803; 82962; 83605; 83690; 84443; 85025; 85379; 86738; 87040; 87070; 87205; 87449; 87633; 87804; 93005; 94640; 94667; 94668; 97802; 99251; 99283; 99406; J7030; J7040; Q9967; A4216; G0463; J2405

== ENCOUNTER → 2018-10-14 12:41 | Outpatient (CLI) | payer MEDICAID, SELFPAY ==
[2018-10-04 09:49] VITALS: BMI 30.2
[2018-10-14 12:59] VITALS: PULSE 108; PULSE 110; PULSE 111; PULSE 115; PULSE 90; PULSE 96; O2SAT 96; O2SAT 97
--- NOTE | 2018-10-14 14:14 | PCM.PSN.6M ---
PSN 6 Minute Walk Test - 6 Minute Walk Test 6 Minute Walk Test: 6 Minute Walk Test PSN:6-Minute Walk Test Start: 10/14/18 12:58 Freq: Status: Active Protocol: RESP.6MINW Document 10/14/18 12:59 SMB (Rec: 10/14/18 13:01 SMB [id number]) 6 Minute Walk Test Date Performed 10/14/18 Time Performed 12:46 Height 6 ft 2 in Weight: 106.594 kg Weight in Pounds 235.[address]: Cici Vinson Assistive device used: None Pre-test Oxygen Delivery Method Room Air Pulse Ox (%) 97 Pulse Rate (60-100 beats/min) 90 Dyspnea Jodie Scale (0-10) 0 Exertion Jodie Scale (6-20) 11 1st minute Oxygen Delivery Method Room Air Pulse Ox (%) 96 Pulse Rate (60-100 beats/min) 110 H 2nd minute Oxygen Delivery Method Room Air Pulse Ox (%) 96 Pulse Rate (60-100 beats/min) 108 H 3rd minute Oxygen Delivery Method Room Air Pulse Ox (%) 97 Pulse Rate (60-100 beats/min) 110 H 4th minute Oxygen Delivery Method Room Air Pulse Ox (%) 96 Pulse Rate (60-100 beats/min) 111 H 5th minute Oxygen Delivery Method Room Air Pulse Ox (%) 97 Pulse Rate (60-100 beats/min) 115 H 6th minute Oxygen Delivery Method Room Air Pulse Ox (%) 97 Pulse Rate (60-100 beats/min) 111 H Post-test Oxygen Delivery Method Room Air Pulse Ox (%) 97 Pulse Rate (60-100 beats/min) 96 Dyspnea Jodie Scale (0-10) 0 Exertion Jodie Scale (6-20) 12 Full Laps Walked 20 Partial Lap, Number of Tiles Walked 26 Total Distance Walked (ft) 1206 - Interpretation Interpretation: The patient was able to ambulate 1206 feet over the course of 6 minutes on room air with no assistive devices or breaks. No significant desaturation was noted, but patient did have a peak heart rate of 115 bpm. These findings are consistent with deconditioning. - Recommendations Recommendations: No supplemental oxygen is indicated at this time.
== END ==
PROVIDERS: Family Provider Student in an Organized Health Care Education/Training Program; PCP Student in an Organized Health Care Education/Training Program; Referring Provider Nurse Practitioner Acute Care; Visit Provider Nurse Practitioner Acute Care
DX: R06.02 Shortness of breath (principal)
CPT/HCPCS: 94618

== ENCOUNTER → 2018-10-18 12:45 | Outpatient (CLI) | payer MEDICAID, SELFPAY ==
[2018-10-04 09:49] VITALS: BMI 30.2
--- NOTE | 2018-10-19 13:43 | PFT ---
INTRODUCTION: The patient is a 23-year-old male that presents for pulmonary function studies secondary to a diagnosis of shortness of breath. Respiratory therapy reports that pre-spirometry was attempted 9 times and the patient was unable to follow directions to achieve acceptable and reproducible flow volume loops. Bronchodilators were used during testing. INTERPRETATION: Forced expiration spirometry demonstrates no evidence of a large airways obstructive ventilatory defect. There was a significant response to aerosolized bronchodilators noted based upon change in FVC. Spirograms plateau gradually indicating slow emptying of the lungs. Body plethysmography was performed and revealed a decreased TLC to 62% of predicted, indicative of a moderate restrictive ventilatory defect. The ERV is significantly reduced, which could be indicative of an underlying body habitus effect. Diffusing capacity by single breath CO is at the lower limits of what is considered normal. IMPRESSION: Normal spirometry with significant bronchodilator response. Lung volumes suggest evidence of a moderate restrictive ventilatory impairment, which could be a reflection of the patient's body habitus, given his severely reduced ERV. Diffusing capacity is at the lower limits of normal.
== END ==
PROVIDERS: Family Provider Student in an Organized Health Care Education/Training Program; PCP Student in an Organized Health Care Education/Training Program; Referring Provider Nurse Practitioner Acute Care; Visit Provider Nurse Practitioner Acute Care
DX: R06.02 Shortness of breath (principal)
CPT/HCPCS: 94060; 94726; 94729

== ENCOUNTER 2018-12-22 14:56 | Emergency (ER) | payer MEDICAID, SELFPAY ==
[2018-10-04 09:49] VITALS: BMI 30.2
[2018-12-22 15:22] VITALS: BP 132/81; PULSE 66; RESP 15; TEMP 35.7; O2SAT 98; BMI 34.4
--- NOTE | 2018-12-22 16:21 | ED.DCSUM_ITS ---
- ER Visit Summary Date of Service: 12/22/18 Chief Complaint: Dental pain History of Present Illness: The patient is a 23 M with left maxillary dental pain for several days. His tooth fractured when he was eating an apple. He does not have a dentist. Physical Examination: Exam unremarkable. He has a fractured tooth that tooth #12 secondary to underlying decay. No sign of abscess, bleeding, trismus, tongue elevation, lymphadenopathy, meningeal signs, or any other pertinent findi ngs. Test Results: None Emergency Department Course and Treatment: Treated with naproxen, clindamycin, and referred to dental. Treatment Plan: As above Disposition: Discharge Impression: 1. Dental pain This note was generated with Tray dictation software. It may contain incorrect words, spelling, and punctuation that were not noted in review of the chart prior to signing ED Disposition - Plan for ED Patient: Referrals: Jose Francisco Domingo DO [Primary Care Provider] -
--- NOTE | 2018-12-22 16:21 | ED.DEP ---
ED Disposition - Plan for ED Patient: Instructions: ED Tooth Pain Prescriptions: Naproxen [Naprosyn] 500 mg PO BID PRN #20 tab Clindamycin HCl [Cleocin] 300 mg PO Q6H #40 cap Referrals: Steph Nj [NON-STAFF] -
[2018-12-22] MEDS: Naproxen 500 MG Tablet PO (16:30)
[2018-12-22] MEDS: Clindamycin HCl 150 MG Capsule 450 MG PO (16:30)
[2018-12-22 16:32] VITALS: BP 137/102; PULSE 96; RESP 18; O2SAT 97
== END 2018-12-22 16:43 | disposition home or self-care (01) ==
LOC: ED 16:40
PROVIDERS: Emergency Provider Emergency Medicine; Family Provider Student in an Organized Health Care Education/Training Program; PCP Student in an Organized Health Care Education/Training Program
DX: K08.89 Other specified disorders of teeth and supporting structures (principal)
CPT/HCPCS: 99283

== ENCOUNTER 2019-02-28 06:48 | Emergency (ER) | payer MEDICAID, SELFPAY ==
[2019-02-28 06:52] VITALS: BP 128/71; PULSE 74; RESP 16; TEMP 36.6; O2SAT 98; BMI 33.5
--- NOTE | 2019-02-28 07:46 | US_ITS ---
STUDY: SCROTUM ULTRASOUND REASON FOR EXAM: Male, 24 years old. TECHNIQUE: Ultrasound evaluation of the scrotum was performed with color Doppler and static chen-scale imaging. COMPARISON: None. FINDINGS: RIGHT TESTICLE INTRATESTICULAR: There is a normal size of the right testicle. The right testicle measures 5.4 x 2.7 cm. There is a homogenous echotexture. There is normal arterial and normal venous vascularity. There is no demonstrated right testicular mass or cyst. EXTRATESTICULAR: There is heterogeneous mass(3.5 cm) within the right scrotum it is confluent with the epididymis could represent hernia. Minimal hydrocele is present on the right side. LEFT TESTICLE INTRATESTICULAR: There is a normal size of the left testicle. The left testicle measures 5.1 x 2.9 cm. There is a homogenous echotexture. There is normal arterial and normal venous vascularity. There is no demonstrated left testicular mass or cyst. EXTRATESTICULAR: The epididymis is normal in size. The epididymis head measures 2.2 x 1 cm .There is normal vascularity of the epididymis. There is no demonstrated epididymal cystic structure. Minimal fluid seen within the left scrotum and around the epididymis There is no demonstrated varicocele. There is no demonstrated extratesticular mass or cyst. US/Testicular with Arterial Flow IMPRESSION: Both testicles are within normal limits. Evidence of heterogeneous mass confluent with the epididymis on the right side felt to represent testicular hernia Mild hydrocele on the right side Minimal fluid within the left scrotum. Electronically Signed: Michaela Thornton, at 9:51 EDT Tel , Service support ,
[2019-02-28 08:08] LABS: Bacteria 0 SEEN /hpf (None Seen); Mucous, Urine 0 SEEN /hpf (<or=2+); Red Blood Cells-Urine 0 SEEN /hpf (0-5); Squamous Epithelial Cells - UA 0 SEEN /hpf (0-5); White Blood Cells 0 SEEN /hpf (0-5)
[2019-02-28 08:10] LABS: Color, Urine Yellow (Yellow); Glucose, Dipstick Normal (Normal); Ketone-Dipstick Negative (Negative); Leukocyte Esterase-Dipstick Negative /ul (Negative); Nitrite-Dipstick Negative (Negative); Occult Blood-Urine Negative /ul (Negative); Protein-Dipstick Negative (Negative); Urine Bilirubin Dipstick Negative (Negative); Urine Clarity Clear (Clear); Urine Urobilinogen Normal (Normal)
--- NOTE | 2019-02-28 09:22 | ED.DCSUM_ITS ---
- ER Visit Summary Date of Service: 02/28/19 Chief Complaint: Right testicular pain History of Present Illness: The patient is a 24 M who notes right testicular pain and swelling for the last 3 or 4 days. He denies any injury to the area. He denies dysuria or hematuria. He denies any rash or lesions. He has had prior vasectomy performed by Dr. Arteaga. Physical Examination: Vital signs unremarkable. Patient sitting upright in bed no acute distress. Heart is regular rate and rhythm. Lung sounds are clear. Abdomen is soft nontender. examination reveals right testicle to be tender to palpation with what feels like an inflamed epididymis. No significant scrotal erythema. Minimal edema. Test Results: Urinalysis is unremarkable. Testicular ultrasound reveals normal testicles. There is a heterogeneous mass confluent with epididymis on the right which may represent hernia. There is mild hydrocele noted on the right. Emergency Department Course and Treatment: Patient will be treated with antibiotics to cover epididymitis. He is instructed to use scrotal support and will be referred to urology for follow-up. Treatment Plan: [] Disposition: Discharge Impression: Epididymitis This note was generated with Netz[employer]iker dictation software. It may contain incorrect words, spelling, and punctuation that were not noted in review of the chart p rior to signing ED Disposition - Plan for ED Patient: Disposition: Home or Assisted Living Instructions: Epididymitis Prescriptions: levoFLOXacin tablet [Levaquin] 500 mg PO DAILY #9 tablet Referrals: Harrison Rutherford MD [STAFF PHYSICIAN] - 1 Week
[2019-02-28] MEDS: levoFLOXacin 500 MG Tablet PO (10:05)
[2019-02-28 10:23] VITALS: BP 128/87; PULSE 62; RESP 16; O2SAT 100
== END 2019-02-28 10:24 | disposition home or self-care (01) ==
PROVIDERS: Emergency Provider Emergency Medicine; Family Provider Student in an Organized Health Care Education/Training Program; PCP Student in an Organized Health Care Education/Training Program
DX: N45.1 Epididymitis (principal); F32.9 Major depressive disorder, single episode, unspecified; F41.9 Anxiety disorder, unspecified; Z72.0 Tobacco use
CPT/HCPCS: 76870; 81001; 93976; 99283

== ENCOUNTER 2020-05-06 00:19 | Emergency (ER) | payer MEDICAID, SELFPAY ==
[2020-05-06 00:24] VITALS: BP 141/83; PULSE 79; RESP 16; TEMP 36.4; O2SAT 97; BMI 29.0
--- NOTE | 2020-05-06 00:31 | ED.DCSUM_ITS ---
History of Present Illness Chief Complaint: Lower Extremity Injury Informant: Patient Onset: Days Context: Gradual Onset Current Severity: Mild Maximum Severity: Moderate Narrative: Patient presents with continued left ankle pain after twisting his ankle 5 days ago. He has been using a cane to help him walk. He denies pain at the knee or hip. - Past Medical History (1) Aspergers' syndrome Status: Chronic (2) ADHD Status: Chronic (3) Anxiety Status: Chronic (4) Depression Status: Chronic Past Medical History - Allergies and Home Meds Allergies/Adverse Reactions: Allergies amoxicillin trihydrate [From Augmentin] Allergy (Verified 05/06/20 00:21) Rash potassium clavulanate [From Augmentin] Allergy (Verified 05/06/20 00:21) Rash Primary Care Physician: Jose Francisco Domingo DO [Primary Care Provider] - Prior records reviewed: Yes Surgical History: no surgical history Lives: With Family Smoking Status: Current every day smoker - Family History Maternal Family History: Family History (Last Reviewed 10/04/18 @ 14:50 by Cici Vinson NP-C) Mother Diabetes Hypertension Family History: Reports: Diabetes, DVT Review of Systems General: Denies: Chills, Fever Eyes: Denies: Visual changes - bilaterally ENT: Denies: Bilateral ear pain Cardiovascular: Denies: Chest pain Respiratory: Denies: Dyspnea, Cough Gastrointestinal: Denies: Abdominal pain, Nausea, Vomiting, Diarrhea Musculoskeletal: Reports: Extremity Pain Skin: Denies: Rash Hematologic: Denies: Easy bruising, Easy bleeding Allergy: Denies: Uticaria Physical Exam Vital Signs/Narrative: Vital Signs Temp Pulse Resp BP Pulse Ox 05/06/20 00:24 97.6 F L 79 16 141/83 H 97 Inital Vital Signs reviewed: Yes General: Well nourished, Well developed Head: Normocephalic ENT: Moist mucous membranes Neck: Supple Cardiovascular: Regular rate, Regular rhythm Respiratory: No distress, CTA bilaterally Abdomen: Soft, Nontender Extremities: - - Mild tenderness palpation on the medial malleolus of the left ankle. No significant edema or erythema. Strong distal pulses with no tenderness over the foot. No tenderness at the proximal fibula. Neurological: Alert, Oriented x3 Psychological: Normal affect Diagnostic/Tx/Re-eval Left ankle x-ray per my read reveals no fracture. - Medical Decision Making Is given naproxen for pain. On repeat evaluation he is resting comfortably. Test results discussed with patient family at bedside. He will be given an Aircast/stirrup splint. He will be given a prescription for naproxen. He will follow-up with his primary care physician if not improved in 1 week. ED Disposition - Plan for ED Patient: Disposition: Home or Assisted Living Diagnosis: Left ankle sprain Instructions: ED Sprain Ankle Prescriptions: Naproxen [Naprosyn] 500 mg PO BID PRN PRN #20 tab PRN Reason: Pain Score 4-10/10 Transmission Status: Pending to [facility] #30 Referrals: Jose Francisco Domingo DO [Primary Care Provider] - 1 Week if not improving
--- NOTE | 2020-05-06 00:31 | RAD_ITS ---
STUDY: X-RAY - LEFT ANKLE REASON FOR EXAM: Male, 25 years old patient with medial ankle pain after twisting injury on May 01, 2020. TECHNIQUE: 3 view(s) of the ankle. COMPARISON: None. FINDINGS: Normal visualized distal tibia and fibula. Normal medial and lateral malleoli. Normal tibiotalar articulation and ankle mortise. There is a talar beak. The tarsal bones otherwise have a grossly normal appearance. Visualized metatarsals have a grossly normal appearance. Intertarsal articulations are within normal limits. There is no demonstrated fracture. There is mild soft tissue swelling. RAD/Ankle min 3 Views IMPRESSION: Soft tissue swelling without evidence for acute fracture. If there is still clinical concern for acute fracture, follow-up radiographs in 7-10 days maybe helpful in evaluating a healing radiographically occult fracture. Electronically Signed: Debora Beltre MD at 1:09 EDT , Service support ,
[2020-05-06] MEDS: Naproxen 500 MG Tablet PO (00:46)
[2020-05-06 01:17] VITALS: RESP 16
== END 2020-05-06 01:18 | disposition home or self-care (01) ==
PROVIDERS: Emergency Provider Emergency Medicine; PCP Student in an Organized Health Care Education/Training Program
DX: S93.402A Sprain of unspecified ligament of left ankle, initial encounter (principal); F17.200 Nicotine dependence, unspecified, uncomplicated; F41.9 Anxiety disorder, unspecified; X50.1XXA Overexertion from prolonged static or awkward postures, initial encounter
CPT/HCPCS: 73610; 99283

== ENCOUNTER 2021-02-20 17:35 | Emergency (ER) | payer MEDICAID, SELFPAY ==
[2021-02-20 17:37] VITALS: BP 162/99; PULSE 78; RESP 15; TEMP 36.4; O2SAT 98; BMI 31.6
--- NOTE | 2021-02-20 17:49 | EX.ED.DYSGE1 ---
HPI History of Present Illness Chief Complaint: Dental Informant: patient Narrative Narrative: 26-year-old male presents to the emergency department with dental pain. Patient states that yesterday his left lower posterior most molar began to hurt. He states he does not have a dentist. He does not know who he is going to see for dentistry. He notes an allergy to Augmentin. No fevers. PFSH PFSH Medical History (Updated 02/20/21 @ 17:[address] Yusef Dudley DO) ADHD Anxiety Aspergers' syndrome Aspiration pneumonia Depression Prediabetes Sepsis Home Medications buspirone 5 mg PO TID 05/06/20 [History Last Taken Unknown] naproxen 500 mg PO BID PRN PRN #20 tab 05/06/20 [Rx Last Taken Unknown] clindamycin HCl [Cleocin HCl] 300 mg PO Q6H #28 capsule 02/20/21 [Rx Last Taken Unknown] hydrocodone-acetaminophen 1 tab PO Q6H PRN PRN 3 Days #10 tablet 02/20/21 [Rx Last Taken Unknown] naproxen 500 mg PO BID PRN #20 tab 02/20/21 [Rx Last Taken Unknown] Allergy/AdvReac Type Severity Reaction Status Date / Time amoxicillin trihydrate Allergy Rash Verified 05/06/20 00:21 [From Augmentin] potassium clavulanate Allergy Rash Verified 05/06/20 00:21 [From Augmentin] Family History (Reviewed 10/04/18 @ 14:50 by Cici Vinson MUSICAL INSTRUMENT MAKER OR REPAIRER, MUSICAL INSTRUMENT MAKER OR REPAIRER-C) Mother Diabetes Hypertension Surgical History History of vasectomy Social History (Updated 02/20/21 @ 17:[address] Yusef Dudley DO) Smoking Status: Current every day smoker tobacco type: cigarettes substance use type: does not use ROS ROS ED Constitutional Constitutional ED: Denies chills or weight loss Eyes Eyes: Denies change in vision or diplopia ENT ENT ED: Reports other Details: Dental pain ; Denies ear pain, rhinorrhea or sore throat Cardiovascular Cardiovascular: Denies chest pain, orthopnea, palpitations or racing heartbeat Respiratory/Chest Respiratory/Chest: Denies cough, dyspnea or orthopnea Gastrointestinal Gastrointestinal: Denies abdominal pain, diarrhea, nausea or vomiting Genitourinary Genitourinary ED: Denies dysuria, hematuria or urinary frequency Musculoskeletal Musculoskeletal: Denies arthralgias or myalgias Integumentary Denies abscess or rash Neurologic Neurologic: Denies headache(s) or weakness Psychiatric Psychiatric: Denies anxiety, depression, suicidal ideation or suicidal thoughts Endocrine Endocrinology: Denies polydipsia, polyphagia or polyuria Allergic/Immunologic Allergic/Immunologic ED: Denies mouth swelling, tongue swelling or urticaria EXAM Physical Exam Const Vital Signs: 02/20/21 17:37 Temperature 97.6 F L Temperature Source Temporal Pulse Rate 78 Respiratory Rate 15 Blood Pressure 162/99 H Blood Pressure Mean 120 Pulse Ox 98 Oxygen Delivery Method Room Air Positive well nourished and well developed General Appearance ED: well developed HEENT Reports normocephalic, head/scalp atraumatic and moist mucous membranes HEENT Narrative: There is no overlying mandibular swelling or erythema. There is tenderness reported by the patient. The number 17 is severely decayed with only about 50% of the tooth remaining above the gumline. There is mild gum swelling but no overt abscess. Eyes PERRL and EOMs intact bilaterally Neck no lymphadenopathy, supple and no JVD Resp normal respiratory effort and clear to auscultation bilaterally Cardio regular rate, regular rhythm and no murmurs GI normal to inspection, nondistended, normoactive bowel sounds and non-tender Palpation: soft Back/Spine no CVA tenderness and normal ROM Extremity normal to inspection General Extremety ED: Negative for edema General Extremity: Negative for edema Neuro oriented x3 and CN's II-XII intact bilaterally Sensorium / Orientation: alert Motor Exam: strength 5/5 throughout Psych mental status grossly normal Mood & Affect: Negative for depressed or tearful Skin no rashes or lesions noted and no wounds MDM MDM MDM Narrative Medical decision making narrative: Patient was urged to follow-up with dentistry as soon as possible. I can put him on some clindamycin and some pain medication. Discharge Plan Triage Chief Complaint: Dental ED Provider: Yusef Dudley Dx/Rx/DC Orders Clinical Impression: Dental decay, Pain due to dental caries Instructions: ED Dental Pain Prescriptions: New clindamycin HCl [Cleocin HCl] 300 MG capsule 300 mg PO Q6H Qty: 28 RF: 0 hydrocodone-acetaminophen [hydrocodone-acetaminophen] 1 TABLET tablet 1 tab PO Q6H PRN PRN (Reason: Pain) 3 Days Qty: 10 RF: 0 naproxen 500 MG tablet 500 mg PO BID PRN Qty: 20 RF: 0 No Action buspirone 5 MG tablet 5 mg PO TID RF: 0 naproxen 500 MG tablet 500 mg PO BID PRN PRN (Reason: Pain Score 4-10/10) Qty: 20 RF: 0 Primary Care Provider: Jose Francisco Domingo Referrals: Jose Francisco Domingo DO [Primary Care Provider] - As Needed Activity Restrictions/Additional Instructions: You need to see a dentist as soon as possible Disposition Disposition: Home, self care
== END 2021-02-20 18:03 | disposition home or self-care (01) ==
PROVIDERS: Emergency Provider Emergency Medicine; PCP Student in an Organized Health Care Education/Training Program
DX: K02.9 Dental caries, unspecified (principal); F17.210 Nicotine dependence, cigarettes, uncomplicated
CPT/HCPCS: 99281; 99282

== ENCOUNTER 2021-03-05 23:06 | Emergency (ER) | payer MEDICAID, SELFPAY ==
[2021-03-05 23:06] VITALS: BP 126/69; PULSE 115; RESP 15; TEMP 36.8; O2SAT 98; BMI 30.8
--- NOTE | 2021-03-06 00:28 | ED.VIS.LOWEX ---
HPI History of Present Illness Chief Complaint: Lower Extremity Injury Narrative Narrative: Patient stated couple days ago he had injured his bilateral knees. He was standing at the restroom. He stated both of his knees gave out. He did not fall. He has been using a cane. No home treatment. No previous injury to these areas. Wanted to make sure they were okay. Stated he has been limping. [facility] Medical History (Updated 03/06/21 @ 00:[address] Jarocho Patel MD) ADHD Anxiety Aspergers' syndrome Aspiration pneumonia Depression Prediabetes Sepsis Home Medications buspirone 5 mg PO TID 05/06/20 [History Last Taken Unknown] naproxen 500 mg PO BID PRN #20 tab 02/20/21 [Rx Last Taken Unknown] duloxetine 30 mg PO DAILY 03/05/21 [History Last Taken Unknown] Allergy/AdvReac Type Severity Reaction Status Date / Time amoxicillin trihydrate Allergy Rash Verified 03/05/21 23:06 [From Augmentin] potassium clavulanate Allergy Rash Verified 03/05/21 23:06 [From Augmentin] Family History Mother Diabetes Hypertension Surgical History History of vasectomy Social History Smoking Status: Current every day smoker tobacco type: cigarettes and e-cigarettes substance use type: does not use ROS ROS ED ROS Narrative ROS General: Denies fever, chills, sweats Eyes: Denies visual changes, blurred vision, double vision ENT: Denies ear pain, rhinorrhea, sore throat Cardiovascular: Denies chest pain, palpitations, heart racing Respiratory: Denies dyspnea, cough, sputum, dyspnea on exertion, orthopnea,PND GI: Denies abdominal pain, nausea, vomiting, diarrhea, constipation, melena : Denies dysuria, hematuria, frequency Musculoskeletal: See HPI Skin: Denies rash, abscess, abrasions Neuro: Denies headache, weakness, paresthesia Psych: Denies depression, anxiety Endo: Denies polyuria, polydipsia, polyphagia Heme: Denies easy bruising, easy bleeding, lymphadenopathy Allergy: Denies hives, swelling EXAM Physical Exam Narrative Exam Narrative: Vital signs reviewed General: Well-nourished well-developed Head: Normocephalic atraumatic Eyes: Pupils equal round and reactive to light extraocular movements intact ENT: TMs clear no hemotympanum no trauma Neck: Nontender full range of motion Cardiovascular: Regular rate rhythm no murmurs normal S1-S2 Respiratory: No distress clear to auscultation bilaterally chest nontender Abdomen: Soft nontender nondistended normal bowel sounds no masses Back: Nontender no CVA tenderness Extremities: Bilateral knees tender to palpation without swelling or deformity. Mild decreased range of motion equally. Pulses normal. Normal color. Ligaments are intact. Walks with an antalgic gait Skin: Normal color no trauma Neuro alert oriented cranial nerves II through XII intact normal strength sensation reflexes Const Vital Signs: 03/05/21 23:06 Temperature 98.2 F Temperature Source Temporal Pulse Rate 115 H Respiratory Rate 15 Blood Pressure 126/69 H Blood Pressure Mean 88 Pulse Ox 98 Oxygen Delivery Method Room Air MDM MDM MDM Narrative Medical decision making narrative: Suspect he has knee sprains bilateral. Do not feel he needs imaging. Given Jair wrap's. Declined pain medicine. Will take anti-inflammatories and follow-up as an outpatient Discharge Plan Triage Chief Complaint: Lower Extremity Injury ED Provider: Jarocho Patel Dx/Rx/DC Orders Clinical Impression: Knee sprain Instructions: ED Knee Sprain Prescriptions: No Action buspirone 5 MG tablet 5 mg PO TID RF: 0 naproxen 500 MG tablet 500 mg PO BID PRN Qty: 20 RF: 0 duloxetine 30 mg Capsule, Delayed Rel Sprinkle 30 mg PO DAILY RF: 0 Primary Care Provider: Jose Francisco Domingo Referrals: Jose Francisco Domingo DO [Primary Care Provider] - Disposition Disposition: Home, Self Care
== END 2021-03-06 00:50 | disposition home or self-care (01) ==
LOC: ED 03-06 00:44
PROVIDERS: Emergency Provider Emergency Medicine; PCP Student in an Organized Health Care Education/Training Program
DX: S83.92XA Sprain of unspecified site of left knee, initial encounter (principal); S83.91XA Sprain of unspecified site of right knee, initial encounter; F17.210 Nicotine dependence, cigarettes, uncomplicated; F41.9 Anxiety disorder, unspecified; F32.9 Major depressive disorder, single episode, unspecified; X58.XXXA Exposure to other specified factors, initial encounter; Z79.899 Other long term (current) drug therapy
CPT/HCPCS: 99282

== ENCOUNTER 2021-06-07 19:30 | Emergency (ER) | payer MEDICAID, SELFPAY ==
[2021-06-07 19:32] VITALS: BP 115/72; PULSE 78; RESP 15; TEMP 36.4; O2SAT 99; BMI 28.2
[2021-06-07 20:39] LABS: Absolute Lymphocyte Count 2.43 X10^3/uL (0.83-4.51); Basophil# 0.03 X10^3/uL; Basophil% 0.3 % (0-1); Eosinophils% 2.2 % (0-5); Hematocrit 47.2 % (40-54); Hemoglobin 15.7 g/dL (13.0-16.5); Lymphocyte # 2.43 X10^3/ul (0.83-4.51); Lymphocyte % 26.2 % (19-41); Mean Corp Hgb Conc 33.3 g/dL (32-36); Mean Corpuscular Hgb 29.8 pg (27.0-32.0); Mean Corpuscular Volume 89.6 fL (80-94); Mean Platelet Vol. 10.1 fl (6.2-12.0); Monocyte# 0.59 X10^3/uL; Monocyte% 6.4 % (0-10); NRBC Flagged by Analyzer 0 % (0-5); Neutrophil # 5.98 X10^3/uL (2.7-7.7); Neutrophil % 64.6 % (47-70); Platelet Count 221 K/mm3 (150-450); RBC Distribution Width CV 13.3 % (11.6-14.6); RBC Distribution Width SD 44.1 fl (35.1-43.9); Red Blood Count 5.27 M/mm3 (4.6-6.2); White Blood Count 9.3 K/mm3 (4.4-11.0)
[2021-06-07 20:44] LABS: Anion Gap 7 (5-15); BUN 23 mg/dL (7-18); BUN/Creat Ratio 23.8 RATIO (10-20); Chloride 108 mmol/L (98-107); Creatinine, Serum 0.97 mg/dL (0.70-1.30); EST Glomerular Filtration Rate 99 mL/min (>60); Est Glom Filt Rate - Afr Amer 120 mL/min (>60); Glucose 99 mg/dL (74-106); Potassium 3.9 mmol/L (3.5-5.1); Sodium Level 142 mmol/L (136-145)
[2021-06-07 21:07] LABS: Amphetamine Urine VISTA NEGATIVE (<1000 ng/mL); Barbiturate Urine VISTA NEGATIVE (< 200 ng/mL); Benzodiazepine Urine VISTA NEGATIVE (< 200 ng/mL); Cocaine Urine VISTA NEGATIVE (< 300 ng/mL); Ecstacy Urine VISTA NEGATIVE (< 500 ng/mL); Methadone Urine VISTA NEGATIVE (< 300 ng/mL); PCP Urine VISTA NEGATIVE (< 25 ng/mL); THC Urine VISTA NEGATIVE (< 50 ng/mL); Vista UDS pH Range 5
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
[2021-06-07 21:38] VITALS: RESP 18
== END 2021-06-07 21:59 | disposition home or self-care (01) ==
PROVIDERS: Emergency Provider Emergency Medicine; PCP Student in an Organized Health Care Education/Training Program
DX: F84.5 Asperger's syndrome (principal); F32.A Depression, unspecified; F17.210 Nicotine dependence, cigarettes, uncomplicated; Z79.899 Other long term (current) drug therapy
CPT/HCPCS: 36415; 80048; 80307; 82077; 85025; 87426; 99284

== ENCOUNTER 2022-01-22 12:17 | Emergency (ER) | payer MEDICAID, SELFPAY ==
[2022-01-22 12:19] VITALS: BP 131/92; PULSE 88; RESP 18; TEMP 36.9; O2SAT 95; BMI 29.2
--- NOTE | 2022-01-22 12:46 | RAD_ITS ---
STUDY: X-RAY CHEST REASON FOR EXAM: Male, 27 years old. Cough TECHNIQUE: Single AP portable view of the chest. COMPARISON: Comparison is made with prior study 09/12/2018.. FINDINGS: The lungs are clear and expanded. There is no demonstrated pleural abnormality. Normal size heart. Normal mediastinum and munira. Normal visualized pulmonary arteries. Normal visualized aortic arch and descending thoracic aorta. Normal visualized thoracic spine. Normal visualized ribs, clavicles, and shoulders. There is no demonstrated abnormality of the visualized soft tissue structures of the upper abdomen. RAD/Chest 1 View (Portable) IMPRESSION: Normal x-ray examination of the chest. Electronically Signed: Robson Oviedo MD at 13:41 EDT ,
--- NOTE | 2022-01-22 12:47 | EX.ED.VIS.UR ---
HPI HPI - URI History of Present Illness Chief Complaint: Cough Narrative Narrative: 27-year-old male with cough, nausea, vomiting for 3 days. He describes body aches. He has not had a fever. He states he has limited p.o. intake but has been able to take his cough medicine. He denies any sick contacts. He states he does not take every day medication although he supposed to take medication for anxiety and depression he states its mind over matter. He does not express chest pain or shortness of breath. ROS ROS ED Constitutional Constitutional ED: Reports chills; Denies fever(s) Eyes Eyes: Denies blurry vision or diplopia ENT ENT ED: Denies rhinorrhea or sore throat Cardiovascular Cardiovascular: Denies chest pain or palpitations Respiratory/Chest Respiratory/Chest: Reports cough; Denies dyspnea or sputum Gastrointestinal Gastrointestinal: Reports nausea and vomiting; Denies diarrhea Genitourinary Genitourinary ED: Denies dysuria or hematuria Musculoskeletal Musculoskeletal: Reports myalgias; Denies arthralgias or neck pain Integumentary Denies rash Neurologic Neurologic: Reports headache(s); Denies paresthesias or weakness Psychiatric Psychiatric: Denies anxiety or depression [facility] Medical History ADHD Anxiety Aspergers' syndrome Aspiration pneumonia Depression Prediabetes Sepsis Home Medications NK 01/22/22 [History Last Taken Unknown] Allergy/AdvReac Type Severity Reaction Status Date / Time amoxicillin trihydrate Allergy Rash Verified 01/22/22 12:18 [From Augmentin] potassium clavulanate Allergy Rash Verified 01/22/22 12:18 [From Augmentin] Family History Mother Diabetes Hypertension Surgical History History of vasectomy Social History Smoking Status: Current every day smoker tobacco type: cigarettes and e-cigarettes substance use type: does not use EXAM Physical Exam Const Vital Signs: 01/22/22 12:19 01/22/22 13:02 Temperature 98.4 F Temperature Source Temporal Pulse Rate 88 Respiratory Rate 18 Respiratory Effort Normal Non-Labored Respiratory Depth Normal Respiratory Pattern Normal Blood Pressure 131/92 H Blood Pressure Mean 105 Pulse Ox 95 Oxygen Delivery Method Room Air Positive well nourished General Appearance ED: NAD; Negative for pallor HEENT normocephalic and atraumatic Eyes PERRL and EOMs intact bilaterally Neck no lymphadenopathy, supple and no meningeal signs Resp normal respiratory effort and clear to auscultation bilaterally Cardio Rate: regular rate Rhythm: regular rhythm GI non-tender and non-distended Inspection: Negative for abdominal distention Palpation: soft Extremity normal to inspection Neuro oriented x3, CN's II-XII intact bilaterally and no sensory deficits noted Sensorium / Orientation: alert Motor Exam: strength 5/5 throughout Psych mental status grossly normal Skin General Skin Exam: Negative for jaundice or pallor Lesions: no lesions Rashes: no rashes MDM MDM MDM Narrative Medical decision making narrative: 27-year-old male with cough and feeling unwell. He has expressed he has nausea and vomiting but is able to take cough medicine. Heart is regular and rhythm. Lungs clear to auscultation bilaterally. Vital signs stable and he is. Patient given Zofran and feels improved. Chest x-ray on my interpretation shows no acute cardiopulmonary process and radiologist agree. Rapid COVID and rapid flu are negative. I will provide the patient with Zofran for home for his nausea. He is counseled to use Tylenol and ibuprofen for any fevers or chills. More than likely he has a viral syndrome.-year-old male who Impression: 1. Viral syndrome Lab Data Attestation: I reviewed the patient's lab results. Radiography Diagnostic Testing: Clinical Impression(s) from Imaging Studies Chest X-Ray 01/22/22 12:46 IMPRESSION: Normal x-ray examination of the chest. Electronically Signed: Robson Oviedo MD at 13:41 EDT , Discharge Plan Triage Chief Complaint: Cough ED Provider: Tray Kilgore Dx/Rx/DC Orders Prescriptions: No Action NK RF: 0 Primary Care Provider: Jose Francisco Domingo
[2022-01-22] MEDS: Ondansetron ODT 4 MG Tablet PO (12:59)
[2022-01-22 14:50] VITALS: BP 124/63; PULSE 72; RESP 15; O2SAT 100
== END 2022-01-22 14:51 | disposition home or self-care (01) ==
PROVIDERS: Emergency Provider Student in an Organized Health Care Education/Training Program; PCP Student in an Organized Health Care Education/Training Program; Visit Provider Student in an Organized Health Care Education/Training Program
DX: B34.9 Viral infection, unspecified (principal); F17.210 Nicotine dependence, cigarettes, uncomplicated; F17.290 Nicotine dependence, other tobacco product, uncomplicated
CPT/HCPCS: 71045; 87428; 99283

== ENCOUNTER 2022-01-24 14:25 | Emergency (ER) | payer MEDICAID, SELFPAY ==
[2022-01-24 14:26] VITALS: BP 143/90; PULSE 101; RESP 20; TEMP 37.2; O2SAT 96; BMI 28.7
--- NOTE | 2022-01-24 15:24 | EX.ED.VIS.UR ---
HPI HPI - URI History of Present Illness Chief Complaint: Nausea/Vomiting Narrative Narrative: 27-year-old male presenting with a cough as well as nausea and vomiting. He was seen 2 days ago for similar symptoms. He states that he is taking Zofran with limited success. He still having vomiting and still has a painful cough. He is not producing any sputum. He denies any fever. He is not short of breath. Patient concerned he might be a little dehydrated. Patient tested for COVID 2 days ago and was negative. Chest x-ray performed 2 days ago is also negative. ROS ROS ED Constitutional Constitutional ED: Denies chills or fever(s) Eyes Eyes: Denies blurry vision or diplopia ENT ENT ED: Reports sore throat; Denies rhinorrhea Cardiovascular Cardiovascular: Reports racing heartbeat Respiratory/Chest Respiratory/Chest: Reports cough Gastrointestinal Gastrointestinal: Reports nausea and vomiting; Denies abdominal pain Genitourinary Genitourinary ED: Denies dysuria or hematuria Musculoskeletal Musculoskeletal: Denies myalgias Integumentary Denies rash Neurologic Neurologic: Denies headache(s) or weakness Psychiatric Psychiatric: Denies anxiety or depression PFSH PFSH Medical History ADHD Anxiety Aspergers' syndrome Aspiration pneumonia Depression Prediabetes Sepsis Home Medications famotidine [Pepcid] 20 mg PO BID #14 tab 01/24/22 [Rx Last Taken Unknown] promethazine 12.5 mg PO TID PRN #14 tab 01/24/22 [Rx Last Taken Unknown] Allergy/AdvReac Type Severity Reaction Status Date / Time amoxicillin trihydrate Allergy Rash Verified 01/24/22 14:26 [From Augmentin] potassium clavulanate Allergy Rash Verified 01/24/22 14:26 [From Augmentin] Family History Mother Diabetes Hypertension Surgical History History of vasectomy Social History Smoking Status: Current every day smoker tobacco type: cigarettes and e-cigarettes substance use type: does not use EXAM Physical Exam Const Vital Signs: 01/24/22 14:26 Temperature 99 F Temperature Source Temporal Pulse Rate 101 H Respiratory Rate 20 H Blood Pressure 143/90 H Blood Pressure Mean 107 Pulse Ox 96 Oxygen Delivery Method Room Air Positive well nourished HEENT normocephalic and atraumatic Eyes PERRL and EOMs intact bilaterally Neck no lymphadenopathy, supple and no meningeal signs Resp normal respiratory effort and clear to auscultation bilaterally Cardio Rate: tachycardic Rhythm: regular rhythm GI non-tender and non-distended Palpation: soft Neuro oriented x3 and CN's II-XII intact bilaterally Sensorium / Orientation: alert, oriented to person, oriented to place and oriented to time Psych mental status grossly normal Skin Lesions: no lesions Rashes: no rashes MDM MDM MDM Narrative Medical decision making narrative: Patient presenting with continued nausea and vomiting. Patient given Phenergan and 500 cc of IV fluids. Patient had chest x-ray 2 days ago which is normal. He is not hypoxic and his lungs are clear to auscultation. Of note the patient is drinking a Dr. Pepper. I obtained a CBC and BMP which are normal with exception of a slight leukocytosis of 11.9. Patient is not dehydrated. Renal function within normal limits. Electrolytes are normal. Patient was given a prescription for Phenergan and Pepcid for home. He is to eat bland food and advance his diet as tolerated. He is to follow-up with his PCP to ensure resolution. Impression: 1. Nausea/vomiting 2. Viral syndrome Lab Data Attestation: I reviewed the patient's lab results. Labs: Laboratory Results - last 24 hr 01/24/22 01/24/22 15:30 15:30 WBC 11.9 H RBC 5.08 Hgb 15.4 Hct 44.7 MCV 88.0 MCH 30.3 MCHC 34.5 RDW Std Deviation 40.3 RDW Coeff of Emily 12.4 Plt Count 284 MPV 9.5 Immature Gran % (Auto) 0.800 Neut % (Auto) 70.9 H Lymph % (Auto) 18.1 L Bradford % (Auto) 7.3 Eos % (Auto) 2.4 Baso % (Auto) 0.5 Absolute Neuts (auto) 8.4 H Absolute Lymphs (auto) 2.16 Nucleated RBC % 0 Sodium 139 Potassium 3.7 Chloride 105 Carbon Dioxide 26.0 Anion Gap 8 BUN 18 Creatinine 1.09 Estim Creat Clear Calc 120.59 Est GFR (MDRD) Af Amer 104 Est GFR (MDRD) Non-Af 86 BUN/Creatinine Ratio 16.5 Glucose 145 H Calcium 9.2 Discharge Plan Triage Chief Complaint: Nausea/Vomiting ED Provider: Tray Kilgore Dx/Rx/DC Orders Instructions: ED Vomiting (Adult) Prescriptions: New promethazine 12.5 mg tablet 12.5 mg PO TID PRN (Reason: nausea and vomiting) Qty: 14 RF: 0 famotidine [Pepcid] 20 mg tablet 20 mg PO BID Qty: 14 RF: 0 Primary Care Provider: Jose Francisco Domingo Referrals: Jose Francisco Domingo DO [Primary Care Provider] - Disposition Disposition: Home, Self Care
[2022-01-24 15:39] LABS: Absolute Lymphocyte Count 2.16 X10^3/uL (0.83-4.51); Absolute Neutrophil Count 8.4 X10^3/uL (2.0-7.7); Basophil# 0.06 X10^3/uL; Basophil% 0.5 % (0-1); Eosinophil# 0.29 X10^3/uL; Eosinophils% 2.4 % (0-5); Hematocrit 44.7 % (40-54); Hemoglobin 15.4 g/dL (13.0-16.5); Lymphocyte # 2.16 X10^3/ul (0.83-4.51); Lymphocyte % 18.1 % (19-41); Mean Corp Hgb Conc 34.5 g/dL (32-36); Mean Corpuscular Hgb 30.3 pg (27.0-32.0); Mean Platelet Vol. 9.5 fl (6.2-12.0); Monocyte# 0.87 X10^3/uL; Monocyte% 7.3 % (0-10); NRBC Flagged by Analyzer 0 % (0-5); Neutrophil # 8.44 X10^3/uL (2.7-7.7); Neutrophil % 70.9 % (47-70); Platelet Count 284 K/mm3 (150-450); RBC Distribution Width CV 12.4 % (11.6-14.6); RBC Distribution Width SD 40.3 fl (35.1-43.9); Red Blood Count 5.08 M/mm3 (4.6-6.2); White Blood Count 11.9 K/mm3 (4.4-11.0)
[2022-01-24] MEDS: proMETHazine 25 MG/ML Syringe 12.5 MG IM (15:43)
[2022-01-24 15:52] LABS: Anion Gap 8 (5-15); BUN 18 mg/dL (7-18); BUN/Creat Ratio 16.5 RATIO (10-20); Calcium,Total 9.2 mg/dL (8.5-10.1); Chloride 105 mmol/L (98-107); Creatinine, Serum 1.09 mg/dL (0.70-1.30); EST Glomerular Filtration Rate 86 mL/min (>60); Est Glom Filt Rate - Afr Amer 104 mL/min (>60); Estimated Creatinine Clearance 120.59 ml/min; Glucose 145 mg/dL (74-106); Potassium 3.7 mmol/L (3.5-5.1); Sodium Level 139 mmol/L (136-145)
[2022-01-24] MEDS: Famotidine 200 MG/20 ML MDV 20 MG in 0.9% Normal Saline (Pres. free 8 ML 300 MG IV (15:57)
== END 2022-01-24 16:27 | disposition home or self-care (01) ==
PROVIDERS: Emergency Provider Student in an Organized Health Care Education/Training Program; PCP Student in an Organized Health Care Education/Training Program; Visit Provider Student in an Organized Health Care Education/Training Program
DX: R11.2 Nausea with vomiting, unspecified (principal); B34.9 Viral infection, unspecified; F17.210 Nicotine dependence, cigarettes, uncomplicated; F41.9 Anxiety disorder, unspecified; F90.9 Attention-deficit hyperactivity disorder, unspecified type; F84.5 Asperger's syndrome; F32.A Depression, unspecified
CPT/HCPCS: 80048; 85025; 96361; 96372; 96374; 99285; J7030; J3490

== ENCOUNTER 2022-08-16 16:32 | Emergency (ER) | payer MEDICAID, SELFPAY ==
[2022-08-16 16:33] VITALS: BP 139/100; PULSE 78; RESP 16; TEMP 36.4; O2SAT 99; BMI 24.5
--- NOTE | 2022-08-16 16:57 | ED.VIS.LOWEX ---
HPI History of Present Illness Chief Complaint: Wound Detail of Chief Complaint: Puncture wound to right heel Informant: patient Narrative Narrative: Patient presents to the emergency department with complaint of puncture wound to his right heel. Patient states that he was barefoot and stepped on a nail in a board. Patient states the nail was intact when he pulled his foot off the board. Unsure of his last tetanus. Complains of pain with walking. PFSH [facility] Medical History (Updated 08/16/22 @ 17:[address] Pranay Leonard DO) ADHD Anxiety Aspergers' syndrome Aspiration pneumonia Depression Prediabetes Sepsis Home Medications cephalexin 500 mg capsule 500 mg PO Q6 #40 CAPSULES 08/16/22 [Rx Last Taken Unknown] Allergy/AdvReac Type Severity Reaction Status Date / Time amoxicillin trihydrate Allergy Rash Verified 08/16/22 16:37 [From Augmentin] potassium clavulanate Allergy Rash Verified 08/16/22 16:37 [From Augmentin] Family History Mother Diabetes Hypertension Surgical History History of vasectomy Social History Smoking Status: Current every day smoker tobacco type: cigarettes and e-cigarettes substance use type: does not use ROS ROS ED Review of Systems ROS Unobtainable: other Constitutional Constitutional ED: Reports lethargy; Denies chills, fever(s), sweats or weight loss Eyes Eyes: Denies blurry vision, change in vision or diplopia ENT ENT ED: Denies rhinorrhea or sore throat Cardiovascular Cardiovascular: Denies chest pain, orthopnea or racing heartbeat Respiratory/Chest Respiratory/Chest: Denies cough, dyspnea, dyspnea on exertion, orthopnea or sputum Gastrointestinal Gastrointestinal: Denies abdominal pain, diarrhea, nausea or vomiting Genitourinary Genitourinary ED: Denies dysuria, hematuria or urinary frequency Musculoskeletal Musculoskeletal: Reports other Details: Right foot puncture wound/heel pain ; Denies arthralgias, back pain, myalgias or neck pain Integumentary Denies abscess, Abrasions or rash Neurologic Neurologic: Denies headache(s) or weakness Psychiatric Psychiatric: Denies anxiety, depression or suicidal thoughts Endocrine Endocrinology: Denies polydipsia, polyphagia or polyuria Hematologic/Lymphatic Hematologic/Lymphatic: Denies easy bleeding, easy bruising or lymphadenopathy Allergic/Immunologic Allergic/Immunologic ED: Denies mouth swelling, tongue swelling or urticaria EXAM Physical Exam Const Vital Signs: 08/16/22 16:33 Temperature 97.5 F L Temperature Source Temporal Pulse Rate 78 Respiratory Rate 16 Blood Pressure 139/100 H Blood Pressure Mean 113 Pulse Ox 99 Oxygen Delivery Method Room Air Positive well nourished and well developed General Appearance ED: well developed and NAD HEENT Reports TM's clear and moist mucous membranes normocephalic and atraumatic; Negative for trauma or tenderness Tympanic Membrane ED: Yes TM's clear Eyes PERRL and EOMs intact bilaterally General Eye ED: Negative for pale conjunctiva or scleral icterus Neck no lymphadenopathy, supple and no JVD General: Negative for tenderness Chest Wall inspection of chest normal and palpation of chest normal Chest: Negative for tenderness Resp normal respiratory effort and clear to auscultation bilaterally Effort and Inspection: Negative for respiratory distress or pain with movement Auscultation: Negative for rhonchi, wheezes or diminished lung sounds Cardio regular rate, regular rhythm, S1 normal heart sound, S2 normal heart sound and no murmurs Peripheral Pulses: pulses 2+ throughout GI normal to inspection, nondistended, normoactive bowel sounds, soft to palpation, non-tender, non-distended and no masses Back/Spine no CVA tenderness and no thoracic nor lumbar tenderness Extremity Extremity Narrative: Patient has a small puncture wound to the plantar aspect of the right heel with no foreign body noted within the wound. He has some mild tenderness to palpation over the area. Neurovascularly intact. There is no erythema or cellulitic changes at this time. General Extremety ED: Negative for edema General Extremity: Negative for edema Neuro oriented x3, CN's II-XII intact bilaterally, no sensory deficits noted and gait normal Sensorium / Orientation: awake, alert, oriented to person, oriented to place and oriented to time Motor Exam: strength 5/5 throughout and strength abnormal Psych mental status grossly normal Skin no rashes or lesions noted and no wounds MDM MDM MDM Narrative Medical decision making narrative: Patient will have his wound cleansed and dressed. Patient will be started on Keflex as there is no concern for Pseudomonas given that he was not wearing shoes or socks. Patient will be given crutches. Patient started on Keflex and advised to return if increasing pain, redness, swelling, purulent drainage, or condition should worsen anyway. Radiography Diagnostic Testing: New x-rays of the right foot obtained interpreted by myself as no foreign bodies noted. No fractures. Official report from radiology pending. Discharge Plan Triage Chief Complaint: Wound ED Provider: Pranay Leonard Dx/Rx/DC Orders Clinical Impression: Puncture wound of foot, right Instructions: ED Puncture Wound (Foot) Prescriptions: New cephalexin [cephalexin] 500 mg capsule 500 mg PO Q6 Qty: 40 0RF Primary Care Provider: Jose Francisco Domingo Referrals: Jose Francisco Domingo DO [Primary Care Provider] - 3-5 Days Disposition Disposition: Home, Self Care
--- NOTE | 2022-08-16 17:00 | RAD_ITS ---
INDICATION: puncture wound to heel EXAMINATION/TECHNIQUE: X-RAY - RIGHT XR Foot Min 3 Views 3 VIEWS COMPARISON: None. FINDINGS: SOFT TISSUES: No evidence of soft tissue gas, no radiopaque foreign bodies identified in the soft tissues at the level of the heel. There are several radiopaque bodies projecting along the plantar surface of the foot appears to be at the skin surface at the level of the MTP. BONES/JOINTS: No acute fracture or subluxation.. Normal alignment. Joint spaces are maintained, osteophyte formation at the talonavicular articulation.. No sclerotic or destructive changes observed. RAD/Foot min 3 Views IMPRESSION: 1. No radiopaque foreign bodies, soft tissue abnormality or erosive bony changes at the level of the heel. 2. Several small radiopaque foreign bodies project along the skin surface along the plantar surface of the foot at the level of the MTPs. These are likely on the skin surface. 3. Mild degenerative change and osteophyte formation. 4. No fractures malalignment or acute bony or joint space abnormality involving the RIGHT foot. Electronically Signed: Joshua Morejon MD at 17:28 EST ,
[2022-08-16] MEDS: Cephalexin 250 MG Capsule 500 MG PO (17:28)
[2022-08-16] MEDS: Diphth,Pertuss(Acell),Tet Vac 0.5 ML Vial IM (17:28)
== END 2022-08-16 17:37 | disposition home or self-care (01) ==
PROVIDERS: Emergency Provider Emergency Medicine; PCP Student in an Organized Health Care Education/Training Program; Visit Provider Emergency Medicine
DX: S91.331A Puncture wound without foreign body, right foot, initial encounter (principal); W45.0XXA Nail entering through skin, initial encounter; F17.210 Nicotine dependence, cigarettes, uncomplicated; Z23 Encounter for immunization
CPT/HCPCS: 73630; 90471; 90715; 99285

== ENCOUNTER 2022-09-16 19:48 | Emergency (ER) | payer MEDICAID, SELFPAY ==
[2022-09-16 19:54] VITALS: BP 124/76; PULSE 105; RESP 15; TEMP 36.3; O2SAT 96; BMI 27.6
[2022-09-16] MEDS: Lidocaine 1% (20 ml mdv) 20 ML Vial INFILT (22:44)
--- NOTE | 2022-09-16 22:48 | EDS_ITS ---
HPI History of Present Illness HPI Narrative: Patient presents with laceration to his right ring finger that occurred today. Patient states he was washing dishes when one of them broke and cut his right ring finger. Patient states the bleeding has been persistent patient states the pain is dull. Patient denies any paresthesias or weakness. Patient states nothing makes the pain worse and nothing makes it better. Patient states his last tetanus was approximately 1 month ago. Chief Complaint: Laceration Informant: patient Occured/Mechanism Comment: Cut on broken glass Onset/Context/Timing Onset: Today Context: Sudden Onset Timing: Continuous Quality of Pain: Dull Location: Right ring finger Worsened by: Nothing Relieved by: Nothing Associated Symptoms Associated Symptoms: Negative for Parasthesia or Weakness Narrative Tetanus Immunization: <5 years PFSH PFS Medical History (Updated 09/16/22 @ 23:[address] Shravan Perez DO) ADHD Anxiety Aspergers' syndrome Aspiration pneumonia Depression Prediabetes Sepsis Home Medications cephalexin 500 mg capsule 500 mg PO Q6 #40 CAPSULES 08/16/22 [Rx Last Taken Unknown] Allergy/AdvReac Type Severity Reaction Status Date / Time amoxicillin trihydrate Allergy Rash Verified 09/16/22 19:58 [From Augmentin] potassium clavulanate Allergy Rash Verified 09/16/22 19:58 [From Augmentin] Family History Mother Diabetes Hypertension Surgical History History of vasectomy Social History Smoking Status: Current every day smoker tobacco type: cigarettes and e- cigarettes substance use type: does not use ROS ROS ED Constitutional Constitutional ED: Denies chills or fever(s) Eyes Eyes: Denies blurry vision or change in vision ENT ENT ED: Denies rhinorrhea or sore throat Cardiovascular Cardiovascular: Denies chest pain or palpitations Respiratory/Chest Respiratory/Chest: Denies cough or dyspnea Gastrointestinal Gastrointestinal: Denies nausea or vomiting Genitourinary Genitourinary ED: Denies dysuria or hematuria Musculoskeletal Musculoskeletal: Denies back pain or neck pain Integumentary Denies abscess or rash Neurologic Neurologic: Denies headache(s) or weakness Allergic/Immunologic Allergic/Immunologic ED: Denies mouth swelling or urticaria EXAM Physical Exam Const Vital Signs: 09/16/22 19:54 Temperature 97.3 F L Temperature Source Temporal Pulse Rate 105 H Respiratory Rate 15 Blood Pressure 124/76 H Blood Pressure Mean 92 Pulse Ox 96 Oxygen Delivery Method Room Air Positive well nourished, well developed and unkempt General Appearance ED: unkempt, well developed and NAD HEENT Reports moist mucous membranes normocephalic and atraumatic Neck full ROM and supple Extremity Extremity Narrative: There is a 2 cm full-thickness linear laceration over the ulnar aspect of the proximal phalanx of the right ring finger. There is moderate gapping of the wound margins. There are no foreign bodies noted. Strength is 5/5 in flexion and extension of the MP, PIP, and DIP joints. Sensation was intact to light touch in all digits. Capillary refill was less than 2 seconds in all digits. Neuro oriented x3, CN's II-XII intact bilaterally, moves all extremities, no focal motor deficits and no sensory deficits noted Sensorium / Orientation: alert Motor Exam: strength 5/5 throughout Psych mental status grossly normal Appearance: unkempt MDM MDM MDM Narrative Medical decision making narrative: The wound was cleaned and irrigated with copious amounts of normal saline. The wound was anesthetized with 1% plain lidocaine via digital block. The wound was closed with 4 simple interrupted #4 -0 nylon sutures under sterile technique. Patient tolerated the procedure well. Bacitracin dressing was applied. Patient was given a note for work. Patient was instructed to keep the wound clean and dry. Patient was instructed to follow-up with his primary care physician in 7 days for wound recheck and suture removal. Patient understood and was agreeable with the plan. All questions were answered. Procedures Lacerations Right ring finger: Length: 2 cm Depth: Sub Q Shape: Flap Prep: Sterile Conditions and Chlorhexadine Laceration repair: Digital block, Irrigated, Lidocaine and Skin sutures Irrigated (ml): 100 Number of Sutures/Shahrzad: 4 Suture Information: Ethilon, Simple and 4-0 Discharge Plan Triage Chief Complaint: Laceration ED Provider: Shravan Perez Dx/Rx/DC Orders Clinical Impression: Laceration of right ring finger w/o foreign body w/o damage to nail Instructions: ED Laceration, Hand: All Closures Prescriptions: No Action cephalexin [cephalexin] 500 mg capsule 500 mg PO Q6 Qty: 40 0RF Stand Alone Forms: Work Status Form Primary Care Provider: Jose Francisco Domingo Referrals: Jose Francisco Domingo DO [Primary Care Provider] - 7 Days for suture removal Disposition Disposition: Home, Self Care Discharge Date/Time: 09/16/22 23:59
[2022-09-16 23:58] VITALS: PULSE 76; RESP 16; O2SAT 98
== END 2022-09-16 23:59 | disposition home or self-care (01) ==
PROVIDERS: Emergency Provider Emergency Medicine; PCP Student in an Organized Health Care Education/Training Program; Visit Provider Emergency Medicine
DX: S61.214A Laceration without foreign body of right ring finger without damage to nail, initial encounter (principal); F17.210 Nicotine dependence, cigarettes, uncomplicated; W25.XXXA Contact with sharp glass, initial encounter
CPT/HCPCS: 12001; 99285

== ENCOUNTER 2022-12-03 21:07 | Emergency (ER) | payer MEDICAID, SELFPAY ==
[2022-12-03 21:08] VITALS: RESP 18; TEMP 37.1; BMI 28.2
--- NOTE | 2022-12-03 22:10 | ED.VIS.LOWEX ---
HPI History of Present Illness Chief Complaint: Laceration Detail of Chief Complaint: Laceration anterior mid right leg Informant: patient Occured/Mechanism Comment: Attempting to open dog food bag with a knife since he could not find scissors. He sustained a laceration to his right leg. Onset/Context/Timing Onset: Hours Context: Sudden Onset Timing: Continuous Current Severity: Mild Maximum Severity: Mild Worsened by: Laceration Relieved by: Pressure Associated Symptoms Associated Symptoms: Negative for Parasthesia, Weakness or Loss of Funtion Narrative Narrative: Patient is a 27-year-old male. Tetanus was 3 months ago. He presents with laceration to his anterior medial right leg. He denies paresthesia, anesthesia medics. He has no other plaints is not on antithrombotic or antiplatelet. Tetanus Immunization: <5 years Prior similar symptoms: Yes Recent Illness/Hospitalization: No [facility] Medical History (Updated 12/03/22 @ 22:[address] Roshan Jarvis MD) ADHD Anxiety Aspergers' syndrome Aspiration pneumonia Depression Prediabetes Sepsis Home Medications cephalexin 500 mg capsule 500 mg PO Q6 #40 CAPSULES 08/16/22 [Rx Last Taken Unknown] Allergy/AdvReac Type Severity Reaction Status Date / Time amoxicillin trihydrate Allergy Rash Verified 09/16/22 19:58 [From Augmentin] potassium clavulanate Allergy Rash Verified 09/16/22 19:58 [From Augmentin] Family History Mother Diabetes Hypertension Surgical History History of vasectomy Social History Smoking Status: Current every day smoker tobacco type: cigarettes and e-cigarettes substance use type: does not use ROS ROS ED Musculoskeletal Musculoskeletal: Reports arthralgias and myalgias Integumentary Reports other Details: Laceration otherwise unremarkable Neurologic Neurologic: Denies paresthesias or weakness Hematologic/Lymphatic Hematologic/Lymphatic: Denies easy bleeding or easy bruising EXAM Physical Exam Const Vital Signs: 12/03/22 21:08 12/03/22 21:08 Temperature 98.7 F Temperature Source Oral Respiratory Rate 18 Positive well nourished, well developed and unkempt General Appearance ED: unkempt and well developed HEENT normocephalic and atraumatic Eyes PERRL Eyes Narrative: Extract muscles intact icteric. Resp normal respiratory effort, no retractions and clear to auscultation bilaterally Cardio regular rate and regular rhythm Extremity Negative for normal to inspection Extremity Narrative: Laceration leg 3.9 cm in length. The wound penetrates the fascia. There is no foreign body. There is no evidence infection. There is no neurovascular compromise distal to injury site. Neuro oriented x3, CN's II-XII intact bilaterally, moves all extremities and no sensory deficits noted Sensorium / Orientation: alert Psych mental status grossly normal Appearance: unkempt MDM MDM MDM Narrative Medical decision making narrative: Patient has a laceration which required repair. Laceration was was repaired, 2 layers. Procedures Other Procedures Procedure(s): 3.9 cm laceration. The wound was anesthetized by local filtration. 2.5 cc of 1% lidocaine without epinephrine was infiltrated. The wound was irrigated with 250 cc of normal saline. Using 4-0 Vicryl to subcutaneous stitches were placed. The skin was closed with 4-0 Ethilon. A total of 9 stitches was placed. Patient tolerated procedure other than here near syncopal vagal episode. Discharge Plan Triage Chief Complaint: Laceration ED Provider: Roshan Jarvis Dx/Rx/DC Orders Clinical Impression: Laceration of right lower leg, ADHD, Aspergers' syndrome, Prediabetes Instructions: ED Laceration Extremity Prescriptions: No Action cephalexin [cephalexin] 500 mg capsule 500 mg PO Q6 Qty: 40 0RF Primary Care Provider: Jose Francisco Domingo Referrals: Jose Francisco Domingo DO [Primary Care Provider] - 10 Day for suture removal Disposition Disposition: Home, Self Care
[2022-12-03] MEDS: Lidocaine 1% (20 ml mdv) 20 ML Vial INFILT (22:16)
== END 2022-12-03 22:19 | disposition home or self-care (01) ==
PROVIDERS: Emergency Provider Emergency Medicine; PCP Student in an Organized Health Care Education/Training Program; Visit Provider Emergency Medicine
DX: S81.811A Laceration without foreign body, right lower leg, initial encounter (principal); F90.9 Attention-deficit hyperactivity disorder, unspecified type; F84.5 Asperger's syndrome; R73.03 Prediabetes; F17.210 Nicotine dependence, cigarettes, uncomplicated; W26.0XXA Contact with knife, initial encounter
CPT/HCPCS: 12002; 99283

== ENCOUNTER 2022-12-13 22:48 | Emergency (ER) | payer MEDICAID, SELFPAY ==
[2022-12-13 22:53] VITALS: BP 128/113; PULSE 120; RESP 18; TEMP 35.5; O2SAT 96; BMI 29.0
--- NOTE | 2022-12-13 22:53 | ED.RN ---
while triaging patient- he decided he does not want to be evaluated for his head injury
== END 2022-12-13 23:06 | disposition left against medical advice (07) ==
LOC: ED 23:05
PROVIDERS: PCP Student in an Organized Health Care Education/Training Program
DX: Z53.21 Procedure and treatment not carried out due to patient leaving prior to being seen by health care provider (principal)

== ENCOUNTER 2024-03-18 16:53 | Emergency (ER) | payer MEDICAID, SELFPAY ==
[2024-03-18 16:55] VITALS: BP 126/87; PULSE 102; RESP 22; TEMP 37.1; O2SAT 98
[2024-03-18 16:57] VITALS: BP 120/85; PULSE 98; RESP 16; TEMP 37.1; O2SAT 95; BMI 31.4
--- NOTE | 2024-03-18 17:10 | EX.ED.DYSGE1 ---
HPI <JOVAN Asher - Last Filed: 03/18/24 18:43> History of Present Illness Chief Complaint: Cellulitis Narrative Narrative: 29-year-old male with history of ADH, prediabetes who presents to the emergency department with complaints of redness to the right knee. Patient is he noticed a medina some days ago, he states he popped it, and he did get some discharge. Patient states that it came back, he tried to use a safety pin, however over the last 3 days, the redness is getting worse and he is here for evaluation. Denies any fever or chills. Patient is he has slight pain on movement. [facility] <JOVAN Asher - Last Filed: 03/18/24 18:43> [facility] Medical History (Updated 03/18/24 @ 18:42 by JOVAN Asher) ADHD Depression Anxiety Aspiration pneumonia Sepsis Prediabetes Aspergers' syndrome Home Medications ?Medication ?Instructions ?Recorded ?Last Taken ?Type cephalexin 500 mg capsule 500 mg PO Q6 #40 CAPSULES 08/16/22 Unknown Rx cephalexin 500 mg capsule 500 mg PO Q6 10 days #40 CAPSULES 03/18/24 Unknown Rx sulfamethoxazole 800 1 tab PO BID #20 tabs 03/18/24 Unknown Rx mg-trimethoprim 160 mg tablet (Bactrim DS) Allergy/AdvReac Type Severity Reaction Status Date / Time amoxicillin trihydrate (From Allergy Rash Verified 03/18/24 16:57 Augmentin) potassium clavulanate (From Allergy Rash Verified 03/18/24 16:57 Augmentin) Family History Mother Diabetes Hypertension Surgical History History of vasectomy Social History Smoking Status: Current every day smoker tobacco type: cigarettes and e-cigarettes substance use type: does not use ROS <JOVAN Asher - Last Filed: 03/18/24 18:43> ROS ED ROS Narrative Constitutional: Negative for fever, chills, weight loss, weakness Eyes: Negative for vision loss, vision change, double vision ENT: Negative for any sore throat, ear pain, congestion Cardiovascular: Negative for any chest pain, tightness, palpitations Respiratory: Negative for any cough, sputum production, hemoptysis, dyspnea, dyspnea on exertion, orthopnea Gastrointestinal: Negative for any abdominal pain, nausea, vomiting, diarrhea, constipation, blood in stool, blood in vomit : Negative for any urinary frequency, dysuria, retention, blood in urine Muscle skeletal: Negative for any neck pain, back pain. Positive for pain to the right knee Neurological: Negative for any headache, syncope, dizziness Skin: Negative for any rashes, itching, abrasions, laceration. Positive for erythema, redness to the anterior right knee Psychiatric: Negative for any depression, anxiety, stress, suicidal ideation, homicidal ideation Hematologic: Negative for any excessive bruising, easy bleeding EXAM <JOVAN Asher - Last Filed: 03/18/24 18:43> Physical Exam Narrative Exam Narrative: Vital signs reviewed. Extremities: No peripheral edema, no signs of gross trauma or deformity. Active full range of motion of all extremities. Patient does have an area of erythema to the right knee to the midline, just lateral. There is a small area that appears to be a medina where the drainage was coming from. Patient is able to flex and extend without any difficulty. Intact results of exam. Neurovascular intact Neuro: Cranial nerves II through XII intact, no focal neurological deficits. Skin: Clean dry and intact with no rash, purpura, petechiae, vesicles or pustules. Backs/flank: No CVA tenderness, no midline spinal tenderness, no deformity. Psych: Normal mood and affect. No SI, HI or acute psychosis. Const Vital Signs: 03/18/24 16:55 03/18/24 16:57 Temperature 98.8 F 98.8 F Temperature Source Oral Oral Pulse Rate 102 H 98 Respiratory Rate 22 H 16 Blood Pressure 126/87 H 120/85 H Blood Pressure Mean 100 96 Pulse Ox 98 95 Oxygen Delivery Method Room Air Room Air <Dr. Shravan Perez, DO - Last Filed: 03/18/24 22:58> Physical Exam Const Vital Signs: 03/18/24 16:55 03/18/24 16:57 Temperature 98.8 F 98.8 F Temperature Source Oral Oral Pulse Rate 102 H 98 Respiratory Rate 22 H 16 Blood Pressure 126/87 H 120/85 H Blood Pressure Mean 100 96 Pulse Ox 98 95 Oxygen Delivery Method Room Air Room Air [facility] <Gorge PresleyJOVAN - Last Filed: 03/18/24 18:43> [facility] Lab Data Labs: Laboratory Results - last 24 hr 03/18/24 17:23 WBC 12.0 H RBC 5.21 Hgb 15.3 Hct 46.2 MCV 88.7 MCH 29.4 MCHC 33.1 RDW Std Deviation 43.3 RDW Coeff of Emily 13.3 Plt Count 227 MPV 10.1 Immature Gran % (Auto) 0.200 Neut % (Auto) 70.6 H Lymph % (Auto) 19.1 [place] % (Auto) 7.6 Eos % (Auto) 2.2 Baso % (Auto) 0.3 Absolute Neuts (auto) 8.5 H Absolute Lymphs (auto) 2.30 Nucleated RBC % 0 Sodium 138 Potassium 3.8 Chloride 107 Carbon Dioxide 23.0 Anion Gap 8 BUN 17 Creatinine 1.01 Estim Creat Clear Calc 137.50 Est GFR (MDRD) Af Amer 111 Est GFR (MDRD) Non-Af 92 BUN/Creatinine Ratio 16.8 Glucose 157 H Calcium 9.3 Radiography Diagnostic Testing: Clinical Impression(s) from Imaging Studies Knee X-Ray 03/18/24 17:33 IMPRESSION: Normal x-ray examination of the knee. Electronically Signed: Neftaly Fairbanks MD at 18:16 EDT Reading Location ID and State: [address] [place] [address] Tel , Service support , Treatment and Re-Evaluation :: Differential diagnosis includes however is not limited to: Septic joint, cellulitis, joint effusion, ingrown hair Patient appears to be in no obvious distress vital signs are stable, patient presents to the emergency department for complaints of right knee pain. Patient physical examination is not consistent with a septic joint, no evidence of a deep tissue infection. Patient is full range of motion. Lab values show slight leukocytosis with a white blood count 12.0, patient's chemistries show slight elevation in blood glucose of 157 however patient does have history of prediabetes. X-rays 4 views to read by ER physician shows no acute process. Patient was given 1 dose of IV Ancef, patient will be discharged home on oral antibiotics, instructed to follow-up outpatient. He is happy with the plan of care, patient stable for discharge. <Dr. Shravan Perez, DO - Last Filed: 03/18/24 22:58> [facility] Narrative Medical decision making narrative: I have personally performed a face to face assessment of the patient and have reviewed the BUZZ Note. I performed a substantive portion of the visit including all aspects of the following. My recinos findings include: History: Patient presents with redness and swelling to his right knee that has been getting worse over the past week. Patient describes the pain as burning. Patient states it is worse with weightbearing. Patient states he did squeeze the area because he thought it was a pimple. Patient states he was able to get some juice out of it. Patient denies any fevers or chills. Exam: Vital signs are stable. Patient is afebrile. Patient is in no acute distress. Skin is warm dry. There is some erythema and warmth over the anterior and lateral aspects of the right knee. There is no joint effusion noted. There is no discharge or drainage noted. There is no fluctuance over the bursa. There is good range of motion of the right knee. It was somewhat limited secondary to pain. There is no pain with short arc range of motion. There is no deformity noted. There is no laxity appreciated. Medical Decision Making: Differential diagnosis includes cellulitis, infected bursitis, and septic arthritis. X-rays of the right knee will be obtained to assess for joint effusion and occult fracture. CBC will be obtained to assess for leukocytosis and anemia. Basic metabolic profile will be obtained to assess for electrolyte abnormality and renal function. Patient was given a dose of Ancef here. CBC was reviewed. There is a slight leukocytosis of 12.0. There is no left shift noted. The remainder is within normal limits. Basic metabolic profile was reviewed and showed a slightly elevated glucose of 157. The remainder is within normal limits. Patient was advised of his findings. Patient was given a prescription for Bactrim and Keflex. Patient was instructed to keep the area clean. Patient was instructed to follow-up with his primary care physician in 5 to 7 days. Patient understood and was agreeable with the plan. All questions were answered. Lab Data Labs: Laboratory Results - last 24 hr 03/18/24 17:23 WBC 12.0 H RBC 5.21 Hgb 15.3 Hct 46.2 MCV 88.7 MCH 29.4 MCHC 33.1 RDW Std Deviation 43.3 RDW Coeff of Emily 13.3 Plt Count 227 MPV 10.1 Immature Gran % (Auto) 0.200 Neut % (Auto) 70.6 H Lymph % (Auto) 19.1 [place] % (Auto) 7.6 Eos % (Auto) 2.2 Baso % (Auto) 0.3 Absolute Neuts (auto) 8.5 H Absolute Lymphs (auto) 2.30 Nucleated RBC % 0 Sodium 138 Potassium 3.8 Chloride 107 Carbon Dioxide 23.0 Anion Gap 8 BUN 17 Creatinine 1.01 Estim Creat Clear Calc 137.50 Est GFR (MDRD) Af Amer 111 Est GFR (MDRD) Non-Af 92 BUN/Creatinine Ratio 16.8 Glucose 157 H Calcium 9.3 Radiography Diagnostic Testing: Clinical Impression(s) from Imaging Studies Knee X-Ray 03/18/24 17:33 IMPRESSION: Normal x-ray examination of the knee. Electronically Signed: Neftaly Fairbanks MD at 18:16 EDT Reading Location ID and State: [address] [place] [address] Tel , Service support , Discharge Plan Triage Chief Complaint: Cellulitis ED Midlevel Provider: Gorge Presley ED Provider: Shravan Perez Dx/Rx/DC Orders Clinical Impression: Cellulitis of knee, Acute knee pain Instructions: ED Cellulitis Prescriptions: New cephalexin 500 mg capsule 500 mg PO Q6 10 Days Qty: 40 0RF sulfamethoxazole-trimethoprim [Bactrim DS] 800-160 mg tablet 1 tab PO BID Qty: 20 0RF No Action cephalexin [cephalexin] 500 mg capsule 500 mg PO Q6 Qty: 40 0RF Primary Care Provider: Jose Francisco Domingo Referrals: Jose Francisco Domingo DO [Primary Care Provider] - Print Language: Citizen Of [place] Disposition Disposition: Home, Self Care Discharge Date/Time: 03/18/24 18:51
--- NOTE | 2024-03-18 17:33 | RAD_ITS ---
STUDY: X-RAY - RIGHT KNEE REASON FOR EXAM: Male, 29 years old. swelling TECHNIQUE: 4 view(s) of the knee. COMPARISON: October 07, 2015 FINDINGS: Normal visualized distal femur. Normal visualized proximal tibia and fibula. Normal proximal tibiofibular articulation. Normal medial femorotibial compartment. Normal lateral femorotibial compartment. Normal patellofemoral articulation. The soft tissue structures are unremarkable. RAD/Knee 4 or More Views IMPRESSION: Normal x-ray examination of the knee. Electronically Signed: Neftaly Fairbanks MD at 18:16 EDT Reading Location ID and State: [address] [place] [address] Tel , Service support ,
[2024-03-18 17:37] LABS: Absolute Neutrophil Count 8.5 X10^3/uL (2.0-7.7); Basophil# 0.04 X10^3/uL; Basophil% 0.3 % (0-1); Eosinophil# 0.27 X10^3/uL; Eosinophils% 2.2 % (0-5); Hematocrit 46.2 % (40-54); Hemoglobin 15.3 g/dL (13.0-16.5); Lymphocyte % 19.1 % (19-41); Mean Corp Hgb Conc 33.1 g/dL (32-36); Mean Corpuscular Hgb 29.4 pg (27.0-32.0); Mean Corpuscular Volume 88.7 fL (80-94); Mean Platelet Vol. 10.1 fl (6.2-12.0); Monocyte# 0.91 X10^3/uL; Monocyte% 7.6 % (0-10); NRBC Flagged by Analyzer 0 % (0-5); Neutrophil # 8.48 X10^3/uL (2.7-7.7); Neutrophil % 70.6 % (47-70); Platelet Count 227 K/mm3 (150-450); RBC Distribution Width CV 13.3 % (11.6-14.6); RBC Distribution Width SD 43.3 fl (35.1-43.9); Red Blood Count 5.21 M/mm3 (4.6-6.2)
[2024-03-18] MEDS: Cefazolin 1 GM/50 ML BAG IV (17:41)
[2024-03-18 17:48] LABS: Anion Gap 8 (5-15); BUN 17 mg/dL (7-18); BUN/Creat Ratio 16.8 RATIO (10-20); Calcium,Total 9.3 mg/dL (8.5-10.1); Chloride 107 mmol/L (98-107); Creatinine, Serum 1.01 mg/dL (0.70-1.30); EST Glomerular Filtration Rate 92 mL/min (>60); Est Glom Filt Rate - Afr Amer 111 mL/min (>60); Glucose 157 mg/dL (74-106); Potassium 3.8 mmol/L (3.5-5.1); Sodium Level 138 mmol/L (136-145)
== END 2024-03-18 18:51 | disposition home or self-care (01) ==
PROVIDERS: Nurse Practitioner; Emergency Provider Emergency Medicine; PCP Student in an Organized Health Care Education/Training Program; Visit Provider Emergency Medicine
DX: L03.115 Cellulitis of right lower limb (principal); F17.210 Nicotine dependence, cigarettes, uncomplicated; F17.290 Nicotine dependence, other tobacco product, uncomplicated
CPT/HCPCS: 73564; 80048; 85025; 96365; 99283; J7050; A4216

== ENCOUNTER 2024-11-07 11:52 | Emergency (ER) | payer MEDICAID, SELFPAY ==
[2024-11-07 11:52] VITALS: BP 142/99; PULSE 78; RESP 16; TEMP 36.8; O2SAT 96; BMI 29.8
[2024-11-07 12:41] LABS: Absolute Lymphocyte Count 2.71 X10^3/uL (0.83-4.51); Absolute Neutrophil Count 5.6 X10^3/uL (2.0-7.7); Basophil# 0.08 X10^3/uL; Basophil% 0.8 % (0-1); Eosinophil# 0.23 X10^3/uL; Eosinophils% 2.4 % (0-5); Hematocrit 47.3 % (40-54); Hemoglobin 15.9 g/dL (13.0-16.5); Lymphocyte # 2.71 X10^3/ul (0.83-4.51); Lymphocyte % 28.6 % (19-41); Mean Corp Hgb Conc 33.6 g/dL (32-36); Mean Corpuscular Hgb 30.2 pg (27.0-32.0); Mean Corpuscular Volume 89.9 fL (80-94); Mean Platelet Vol. 10.2 fl (6.2-12.0); Monocyte# 0.76 X10^3/uL; NRBC Flagged by Analyzer 0 % (0-5); Neutrophil # 5.63 X10^3/uL (2.7-7.7); Neutrophil % 59.7 % (47-70); Platelet Count 251 K/mm3 (150-450); RBC Distribution Width CV 13.4 % (11.6-14.6); RBC Distribution Width SD 44.1 fl (35.1-43.9); Red Blood Count 5.26 M/mm3 (4.6-6.2); White Blood Count 9.5 K/mm3 (4.4-11.0)
[2024-11-07 13:07] LABS: Lipase 20 U/L (13-75)
[2024-11-07 14:14] LABS: ALB/GLOB Ratio 1.4 RATIO (0.9-2.4); AST(SGOT) 38 U/L (<=37); Alanine Aminotransfer ALT/SGPT 72 U/L (<=46); Albumin, Serum 4.4 g/dL (3.5-5.0); Alkaline Phosphatase 73 U/L (40-129); Anion Gap 12 (5-15); BUN 17 mg/dL (4-19); Calcium 9.1 mg/dL (7.6-11.0); Carbon Dioxide 20.4 mmol/L (22.0-29.0); Chloride 107 mmol/L (96-108); Creatinine, Serum 0.85 mg/dL (0.70-1.20); EST Glomerular Filtration Rate 120 (>60); Estimated Creatinine Clearance 159.97 ml/min (50-250); Globulin 3.2 g/dL (2.2-4.2); Glucose 136 mg/dL (70-99); Potassium 4.1 mmol/L (3.3-5.1); Protein, Total 7.6 g/dL (5.9-8.4); Sodium Level 139 mmol/L (133-145); Total Bilirubin 0.29 mg/dL (0.00-1.30)
--- NOTE | 2024-11-07 14:38 | EDS_ITS ---
HPI History of Present Illness Chief Complaint: Abd Pain [facility] Medical History (Updated 03/26/24 @ 00:02 by Background Amanda) ADHD Depression Anxiety Aspiration pneumonia Sepsis Prediabetes Aspergers' syndrome Home Medications ?Medication ?Instructions ?Recorded ?Last Taken ?Type cephalexin 500 mg capsule 500 mg PO Q6 #40 CAPSULES Unknown Rx cephalexin 500 mg capsule 500 mg PO Q6 10 days #40 CAP SULES 03/18/24 Unknown Rx sulfamethoxazole 800 1 tab PO BID #20 tabs Unknown Rx mg-trimethoprim 160 mg tablet (Bactrim DS) Allergy/AdvReac Type Severity Reaction Status Date / Time amoxicillin trihydrate (From Allergy Rash Verified 11/07/24 11:54 Augmentin) potassium clavulanate (From Allergy Rash Verified 11/07/24 11:54 Augmentin) Family History Mother Diabetes Hypertension Surgical History History of vasectomy Social History Smoking Status: Current every day smoker tobacco type: cigarettes and e- cigarettes substance use type: does not use EXAM Physical Exam Const Vital Signs: 11/07/24 11:52 Temperature 98.3 F Temperature Source Oral Pulse Rate 78 Respiratory Rate 16 Blood Pressure 142/99 H Blood Pressure Mean 113 Pulse Ox 96 Oxygen Delivery Method Room Air MDM MDM MDM Narrative Medical decision making narrative: HISTORY OF PRESENT ILLNESS: 29-year-old male presents concern for abdominal pain nausea vomiting diarrhea that began 2 days ago. He states [] REVIEW OF SYSTEMS: Pertinent positives: Abdominal pain, nausea vomiting diarrhea Pertinent negatives: [] PHYSICAL EXAM: Nursing triage notes reviewed, Vital signs reviewed Constitutional: please see mdm HENT: MMM Eyes: Pupils equal round and reactive to light, Extraocular muscles intact Neck: No stridor, no JVD, full neck ROM Lungs: Clear to auscultation, No wheezing or rales. No increased work of breathing, no conversational dyspnea, no accessory muscle use, no nasal flaring. No respiratory distress noted Heart: Regular rate and rhythm, No murmurs, No rubs and No gallops, 2+ distal pulses (radial, femoral, posterior tibial) in all extremities Abdomen: Soft, there is no tenderness, rigidity, rebound or guarding, no obvious peritoneal signs, no palpable pulsatile abdominal masses, no auscultated abdominal bruit : No CVAT Extremities: No edema Neuro: No new focal neurological deficits, cranial nerves II through XII intact, 5/5 strength in all present extremities. Intact sensation to light touch in all present extremities, 2+ reflexes bilateral patella tendons. Skin: No rash or lesions noted MEDICAL DECISION MAKING: Chief Complaint: Abdominal pain, nausea vomiting diarrhea External records reviewed: Reviewed prior imaging studies: No recent advanced imaging of the abdomen or pelvis noted Factors affecting care: Asperger syndrome, nicotine dependence, ADHD, depression Social determinants of health: none History obtained from others: none Consults: none MDM Narrative: The patient was initially hemodynamically stable, afebrile and nontoxic- appearing. Abdominal exam [] I considered the following differential diagnosis: Dehydration, electrolyte disturbance, viral gastroenteritis, abdominal perforation, bowel obstruction, anemia, hepatobiliary obstruction Triage labs were placed per protocol secondary to poor department of conditions including high volume and high acuity. Labs included CBC, lipase and CMP ALL IMAGES (IF OBTAINED) HAVE BEEN PERSONALLY REVIEWED AND INTERPRETED BY MYSELF. CBC without leukocytosis, severe anemia, no thrombocytopenia. CMP without evidence of acute kidney injury, significant electrolyte abnormality, anion gap to suggest end organ hypo-perfusion, no evidence of metabolic acidosis with a normal bicarbonate, no evidence of hepatobiliary obstructive pathology. Lipase is wnl indicating no pancreatic inflammation. The patient and/or family, caregivers express understanding. The patient and/or family, caregivers agrees with the plan. Shared decision making: I will have a discussion with the patient and or visitors regarding risk/benefits of further testing or admission. They will be made aware of of the risk/benefits inherent in this decision they will be given the opportunity to voice understanding. Total critical care time today provided was at least 0 [] minutes. This excludes separately billable procedures. Critical care time (if documented) is secondary to the patient having high probability of clinically significant/life threatening deterioration in the patient's condition which required my urgent intervention. Impression: 1. Acute abdominal 2. Nausea vomiting diarrhea Dispo: [] This note was generated with [employer] dictation software. It may contain incorrect words, spelling, and punctuation that were not noted in review of the chart prior to signing. Lab Data Labs: Laboratory Results - last 24 hr 11/07/24 12:24 WBC 9.5 RBC 5.26 Hgb 15.9 Hct 47.3 MCV 89.9 MCH 30.2 MCHC 33.6 RDW Std Deviation 44.1 H RDW Coeff of Emily 13.4 Plt Count 251 MPV 10.2 Immature Gran % (Auto) 0.500 Neut % (Auto) 59.7 Lymph % (Auto) 28.6 [place] % (Auto) 8.0 Eos % (Auto) 2.4 Baso % (Auto) 0.8 Absolute Neuts (auto) 5.6 Absolute Lymphs (auto) 2.71 Nucleated RBC % 0 Sodium 139 Potassium 4.1 Chloride Direct 107 Carbon Dioxide 20.4 L Anion Gap 12 BUN 17 Creatinine 0.85 Estim Creat Clear Calc 159.97 Est GFR (MDRD) Non-Af 120 BUN/Creatinine Ratio 20.0 Glucose 136 H Calcium 9.1 Total Bilirubin 0.29 AST 38 ALT 72 H Alkaline Phosphatase 73 Total Protein 7.6 Albumin 4.4 Globulin 3.2 Albumin/Globulin Ratio 1.4 Lipase 20 Discharge Plan Triage Chief Complaint: Abd Pain ED Provider: Joe Cerrato Dx/Rx/DC Orders Prescriptions: No Action cephalexin [cephalexin] 500 mg capsule 500 mg PO Q6 Qty: 40 0RF cephalexin 500 mg capsule 500 mg PO Q6 10 Days Qty: 40 0RF sulfamethoxazole-trimethoprim [Bactrim DS] 800-160 mg tablet 1 tab PO BID Qty: 20 0RF Primary Care Provider: Jose Francisco Domingo Referrals: Jose Francisco Domingo DO [Primary Care Provider] - Print Language: Czech
--- NOTE | 2024-11-07 14:38 | EX.ED.DYSGE1 ---
HPI History of Present Illness Chief Complaint: Abd Pain [facility] Medical History (Updated 11/07/24 @ 15:[address] Joe Cerrato DO) ADHD Depression Anxiety Aspiration pneumonia Sepsis Prediabetes Aspergers' syndrome Home Medications ?Medication ?Instructions ?Recorded ?Last Taken ?Type cephalexin 500 mg capsule 500 mg PO Q6 #40 CAPSULES 08/16/22 Unknown Rx cephalexin 500 mg capsule 500 mg PO Q6 10 days #40 CAPSULES 03/18/24 Unknown Rx sulfamethoxazole 800 1 tab PO BID #20 tabs 03/18/24 Unknown Rx mg-trimethoprim 160 mg tablet (Bactrim DS) ondansetron 4 mg disintegrating 4 mg PO Q8H PRN PRN Nausea #10 tabs 11/07/24 Unknown Rx tablet Allergy/AdvReac Type Severity Reaction Status Date / Time amoxicillin trihydrate (From Allergy Rash Verified 11/07/24 11:54 Augmentin) potassium clavulanate (From Allergy Rash Verified 11/07/24 11:54 Augmentin) Family History Mother Diabetes Hypertension Surgical History History of vasectomy Social History Smoking Status: Current every day smoker tobacco type: cigarettes and e-cigarettes substance use type: does not use EXAM Physical Exam Const Vital Signs: 11/07/24 11:52 11/07/24 14:53 Temperature 98.3 F Temperature Source Oral Pulse Rate 78 61 Respiratory Rate 16 18 Blood Pressure 142/99 H 110/81 H Blood Pressure Mean 113 90 Pulse Ox 96 97 Oxygen Delivery Method Room Air Room Air [facility] MDM Narrative Medical decision making narrative: HISTORY OF PRESENT ILLNESS: 29-year-old male presents concern for abdominal pain nausea vomiting diarrhea that began 2 days ago. He states he has had no sick contacts, recent travel, hospitalizations. No recent antibiotics. He notes diffuse abdominal pain. He denies history abdominal surgery. Denies fever. Denies blood in his stool. REVIEW OF SYSTEMS: Pertinent positives: Abdominal pain, nausea vomiting diarrhea Pertinent negatives: Fever PHYSICAL EXAM: Nursing triage notes reviewed, Vital signs reviewed Constitutional: please see mdm HENT: MMM Eyes: Pupils equal round and reactive to light, Extraocular muscles intact Neck: No stridor, no JVD, full neck ROM Lungs: Clear to auscultation, No wheezing or rales. No increased work of breathing, no conversational dyspnea, no accessory muscle use, no nasal flaring. No respiratory distress noted Heart: Regular rate and rhythm, No murmurs, No rubs and No gallops, 2+ distal pulses (radial, femoral, posterior tibial) in all extremities Abdomen: Soft, diffusely TTP but no rigidity, rebound or guarding, no obvious peritoneal signs, no palpable pulsatile abdominal masses, no auscultated abdominal bruit. Negative Chowdhury sign. No pain at McBurney's point. : No CVAT Extremities: No edema Neuro: No new focal neurological deficits, cranial nerves II through XII intact, 5/5 strength in all present extremities. Intact sensation to light touch in all present extremities, 2+ reflexes bilateral patella tendons. No focal deficits. NIH of 0. Skin: No rash or lesions noted MEDICAL DECISION MAKING: Chief Complaint: Abdominal pain, nausea vomiting diarrhea External records reviewed: Reviewed prior imaging studies: No recent advanced imaging of the abdomen or pelvis noted Factors affecting care: Asperger syndrome, nicotine dependence, ADHD, depression Social determinants of health: none History obtained from others: none Consults: none [facility] Narrative: The patient was initially hemodynamically stable, afebrile and nontoxic-appearing. Abdominal exam benign however he is in the hallway and abdominal exam was difficult to ascertain I considered the following differential diagnosis: Dehydration, electrolyte disturbance, viral gastroenteritis, abdominal perforation, bowel obstruction, anemia, hepatobiliary obstruction Triage labs were placed per protocol secondary to poor department of conditions including high volume and high acuity. Triage Labs included CBC, lipase and CMP After assessing the patient had a CT scan of the abdomen pelvis and EKG. I resuscitated patient 1 L normal saline, 4 mg IV Zofran and 15 mg of IV Toradol. ALL IMAGES (IF OBTAINED) HAVE BEEN PERSONALLY REVIEWED AND INTERPRETED BY MYSELF. CBC without leukocytosis, severe anemia, no thrombocytopenia. EKG with normal sinus rhythm rate of 61, normal axis, normal intervals, no STEMI CMP without evidence of acute kidney injury, significant electrolyte abnormality, anion gap to suggest end organ hypo-perfusion, no evidence of metabolic acidosis with a normal bicarbonate, no evidence of hepatobiliary obstructive pathology. Lipase is wnl indicating no pancreatic inflammation. CT scan of the abdomen pelvis was negative for acute intra-abdominal pathology. Repeat abdominal exam remained benign. Patient is appropriate discharge home with p.o. Zofran, Tylenol, ibuprofen and PCP follow-up instructions. Strict return precautions were discussed. The patient and/or family, caregivers express understanding. The patient and/or family, caregivers agrees with the plan. Shared decision making: I will have a discussion with the patient and or visitors regarding risk/benefits of further testing or admission. They will be made aware of of the risk/benefits inherent in this decision they will be given the opportunity to voice understanding. Total critical care time today provided was at least 0 minutes. This excludes separately billable procedures. Critical care time (if documented) is secondary to the patient having high probability of clinically significant/life threatening deterioration in the patient's condition which required my urgent intervention. Impression: 1. Acute abdominal 2. Nausea vomiting diarrhea Dispo: Discharge home This note was generated with Addy dictation software. It may contain incorrect words, spelling, and punctuation that were not noted in review of the chart prior to signing. Lab Data Labs: Laboratory Results - last 24 hr 11/07/24 12:24 WBC 9.5 RBC 5.26 Hgb 15.9 Hct 47.3 MCV 89.9 MCH 30.2 MCHC 33.6 RDW Std Deviation 44.1 H RDW Coeff of Emily 13.4 Plt Count 251 MPV 10.2 Immature Gran % (Auto) 0.500 Neut % (Auto) 59.7 Lymph % (Auto) 28.6 [place] % (Auto) 8.0 Eos % (Auto) 2.4 Baso % (Auto) 0.8 Absolute Neuts (auto) 5.6 Absolute Lymphs (auto) 2.71 Nucleated RBC % 0 Sodium 139 Potassium 4.1 Chloride Direct 107 Carbon Dioxide 20.4 L Anion Gap 12 BUN 17 Creatinine 0.85 Estim Creat Clear Calc 159.97 Est GFR (MDRD) Non-Af 120 BUN/Creatinine Ratio 20.0 Glucose 136 H Calcium 9.1 Total Bilirubin 0.29 AST 38 ALT 72 H Alkaline Phosphatase 73 Total Protein 7.6 Albumin 4.4 Globulin 3.2 Albumin/Globulin Ratio 1.4 Lipase 20 Radiography Diagnostic Testing: Clinical Impression(s) from Imaging Studies Abdomen/Pelvis CT 11/07/24 14:47 IMPRESSION: No acute abnormality is seen. One or more dose reduction techniques were used (e.g., Automated exposure control, adjustment of the mA and/or kV according to patient size, use of iterative reconstruction technique). Reading Location: [id number] Discharge Plan Triage Chief Complaint: Abd Pain ED Provider: Joe Cerrato Dx/Rx/DC Orders Clinical Impression: Nausea & vomiting Instructions: ED Abdominal Pain Unkn Cause Male... Prescriptions: New ondansetron 4 mg tablet,disintegrating 4 mg PO Q8H PRN PRN (Reason: Nausea) Qty: 10 0RF No Action cephalexin [cephalexin] 500 mg capsule 500 mg PO Q6 Qty: 40 0RF cephalexin 500 mg capsule 500 mg PO Q6 10 Days Qty: 40 0RF sulfamethoxazole-trimethoprim [Bactrim DS] 800-160 mg tablet 1 tab PO BID Qty: 20 0RF Primary Care Provider: Jose Francisco Domingo Referrals: Jose Francisco Domingo DO [Primary Care Provider] - Activity Restrictions/Additional Instructions: Thank you for trusting us with your care today! Your labs images were reassuring. No sign of acute surgical pathology in your abdomen pelvis. Suspect you are suffering from a viral gastroenteritis. Please take Zofran as needed for nausea and vomiting control at home. Please take Tylenol (2 pills, 650 mg), ibuprofen (2 pills, 400 mg) every 6 hours as needed for pain and fever control. Please return to the emergency department if your symptoms change or worsen. Please follow with your primary care physician for further outpatient evaluation and management. Print Language: Lithuanian Disposition Disposition: Home, Self Care
--- NOTE | 2024-11-07 14:47 | CT_ITS ---
PROCEDURE: ABDOMEN/PELVIS W IV CONT ONLY REASON FOR EXAM: Abdominal pain/right lower quadrant pain. Nausea vomiting and diarrhea. TECHNIQUE: Abdomen and pelvis CT with intravenous contrast. No oral contrast. IV CONTRAST: 100 cc of Isovue 370. COMPARISON: None. FINDINGS: Lung bases: Clear Liver: Unremarkable. Gallbladder: Unremarkable. Spleen: Unremarkable. Pancreas: Unremarkable. Adrenals: Unremarkable. Kidneys: Unremarkable. Bladder: Unremarkable.. Mild central prostatic calcifications. Reproductive Organs: Unremarkable. Bowel: Unremarkable. Appendix: Normal. Lymph nodes: No suspicious lymph node enlargement. Vasculature: Major vascular structures are unremarkable. Peritoneum / Retroperitoneum: No ascites. No free air. Bones: Unremarkable. CT/Abdomen/Pelvis W IV Cont ONLY IMPRESSION: No acute abnormality is seen. One or more dose reduction techniques were used (e.g., Automated exposure contr ol, adjustment of the mA and/or kV according to patient size, use of iterative reconstruction technique). Reading Location: [id number]
--- NOTE | 2024-11-07 14:47 | EKG12_ITS ---
Test Reason : Blood Pressure : */* mmHG Vent. Rate : 61 BPM Atrial Rate : 61 BPM P-R Int : 148 ms QRS Dur : 76 ms QT Int : 396 ms P-R-T Axes : 24 38 43 degrees QTcB Int : 398 ms Normal sinus rhythm Normal ECG Confirmed by Breezy Marie ([id number]), photograph editor ABDON ONEILL ([id number]) on 11/08/2024 10:43:47 AM Referred By: TA Confirmed By: Breezy Marie
[2024-11-07] MEDS: Ketorolac 15 MG/ML Vial IV (14:51)
[2024-11-07] MEDS: Ondansetron 4 MG/2 ML Vial IV (14:51)
[2024-11-07] MEDS: 0.9% Normal Saline (1000mL) 1,000 ML 999 ML IV (14:51)
[2024-11-07 14:53] VITALS: BP 110/81; PULSE 61; RESP 18; O2SAT 97
[2024-11-07 16:00] VITALS: PULSE 82; RESP 14; O2SAT 96
[2024-11-07 16:13] VITALS: BP 110/81; PULSE 82; RESP 14; TEMP 36.8; O2SAT 96
== END 2024-11-07 16:13 | disposition home or self-care (01) ==
PROVIDERS: Emergency Provider Emergency Medicine; PCP Student in an Organized Health Care Education/Training Program; Visit Provider Emergency Medicine
DX: R10.84 Generalized abdominal pain (principal); R11.2 Nausea with vomiting, unspecified; F17.210 Nicotine dependence, cigarettes, uncomplicated; R19.7 Diarrhea, unspecified; F17.290 Nicotine dependence, other tobacco product, uncomplicated; Z98.52 Vasectomy status
CPT/HCPCS: 74177; 80053; 83690; 85025; 93005; 96361; 96374; 96375; 99285; Q9967; A4216; J2405